=== PATIENT | male | born 1950 | race Caucasian/White ===

== ENCOUNTER 2017-02-05 09:00 | Inpatient (IN) | payer MEDICARE, OTHER ==
[~2017-02-05] VITALS: Ht 160 cm; Wt 62.6 kg
[2017-02-05] MEDS ORDERED: DEXTROSE 50%, 50ML VIAL ONE (09:06)
[2017-02-05] MEDS ORDERED: SODIUM CHLORIDE 0.9% 1,000 ML IV ONE (09:11)
[2017-02-05] MEDS ORDERED: PLEASE ENTER ALLERGIES MC SCH ×2 (09:30)
[2017-02-05] MEDS ORDERED: SODIUM CHLORIDE FLUSH 10ML SYR IVF ONE (09:30)
[2017-02-05] MEDS ORDERED: SODIUM CHLORIDE 0.9% 1,000ML IVBOLUS ONE ×2 (09:30→17:00)
[2017-02-05] MEDS ORDERED: DEXTROSE 50%, 50ML SYRINGE IVPush ONE (09:30)
[2017-02-05 10:13] LABS: ABG COLLECTION SITE LEFT BRACHIAL; HEMATOCRIT 45.9 % (39.2-51.8); HEMOGLOBIN 15.4 g/dL (13.7-18.0); WHITE BLOOD COUNT 9.4 x10^3/uL (3.4-10)
[2017-02-05 10:36] LABS: DIFF TOTAL CELLS COUNTED 100 CELL DIFF
[2017-02-05 10:40] LABS: VERIFY COUNTS? YES
[2017-02-05 10:45] LABS: ASPARTATE AMINO TRANSFERASE 43 U/L (15-37); BLOOD UREA NITROGEN 14 mg/dL (7-18)
[2017-02-05 10:50] VITALS: BP 83/44
[2017-02-05 10:51] LABS: IS PT STATUS REG ER OR PRE ER? YES
[2017-02-05] MEDS: DEXTROSE 10% 500 ML IV SCH ×3 (11:04→19:00)
[2017-02-05] MEDS ORDERED: SODIUM CHLORIDE 0.9% 1,000 ML IV SCH ×2 (11:18→12:18)
[2017-02-05] MEDS ORDERED: VANCOMYCIN PER PHARMACY MC ONE (11:30)
[2017-02-05] MEDS ORDERED: NOREPINEPHRINE 4 MG in SODIUM CHLORIDE 0.9% 246 ML IV PRN (11:30)
[2017-02-05] MEDS ORDERED: PIPERACILLIN/TAZO/PMX 3.375GM 50 ML IVPB ONE (11:30)
[2017-02-05] MEDS ORDERED: VANCOMYCIN 1,300 MG in SODIUM CHLORIDE 0.9% 250 ML IV ONE (11:30)
[2017-02-05] MEDS ORDERED: SODIUM CHLORIDE FLUSH 10ML SYR IVF PRN (12:00)
[2017-02-05] MEDS ORDERED: VANCOMYCIN PER PHARMACY MC PRN (14:00)
[2017-02-05] MEDS ORDERED: LORazepam 2 MG/ML, 1ML IV PRN ×5 (14:00)
[2017-02-05] MEDS: PIPERACILLIN/TAZO/PMX 3.375GM 50 ML IV SCH ×2 (14:00→22:00)
[2017-02-05 14:07] LABS: HEMATOCRIT 41.7 % (39.2-51.8); HEMOGLOBIN 13.8 g/dL (13.7-18.0)
[2017-02-05 14:13] LABS: ABG COLLECTION SITE LEFT RADIAL; COLLATERAL CIRCULATION TESTING NORMAL
[2017-02-05 14:19] LABS: BLOOD UREA NITROGEN 15 mg/dL (7-18)
[2017-02-05] MEDS ORDERED: PANTOPRAZOLE 80 MG in SODIUM CHLORIDE 0.9% 50 ML IV ONE (14:38)
[2017-02-05] MEDS ORDERED: PHARMACOKINETIC CONSULTATION MC ONE (15:00)
[2017-02-05] MEDS ORDERED: PHARMACOKINETIC MONITORING MC PRN (15:00)
[2017-02-05] MEDS ORDERED: POTASSIUM CHLORIDE 40 MEQ in SODIUM CHLORIDE 0.9% 100 ML IV ONE (15:30)
[2017-02-05] MEDS: OCTREOTIDE 500 MCG in SODIUM CHLORIDE 0.9% 249 ML IV SCH (16:31)
[2017-02-05] MEDS: VASOPRESSIN 100 UNIT in SODIUM CHLORIDE 0.9% 495 ML IV PRN (16:31)
[2017-02-05] MEDS: PANTOPRAZOLE 80 MG in SODIUM CHLORIDE 0.9% 100 ML IV SCH (16:42)
[2017-02-05] MEDS: NOREPINEPHRINE 8 MG in SODIUM CHLORIDE 0.9% 246 ML IV PRN ×2 (16:53→21:37)
[2017-02-05] MEDS ORDERED: ETOMIDATE 20 MG/10 ML IVPush ONE (17:00)
[2017-02-05] MEDS ORDERED: PROPOFOL 10 MG/ML, 100ML IV ONE (17:00)
[2017-02-05] MEDS ORDERED: ETOMIDATE 20 MG/10 ML ONE (17:00)
[2017-02-05] MEDS ORDERED: MIDAZOLAM 1 MG/ML, 5ML ONE (17:00)
[2017-02-05] MEDS ORDERED: MIDAZOLAM 1 MG/ML, 5ML IVPush ONE (17:00)
[2017-02-05] MEDS ORDERED: LIDOCAINE-MPF 1%, 2ML ENDO PRN (17:30)
[2017-02-05] MEDS ORDERED: PHARMACY MAY ADJ FOR RENAL FX MC SCH (17:30)
[2017-02-05] MEDS ORDERED: GLUCAGON 1 MG IM PRN (17:30)
[2017-02-05] MEDS: PHENYLEPHRINE 10 MG in SODIUM CHLORIDE 0.9% 249 ML IV PRN ×2 (17:30→21:37)
[2017-02-05] MEDS: PROPOFOL 100 ML IV PRN (17:30)
[2017-02-05 18:32] LABS: ABG COLLECTION SITE LEFT RADIAL; COLLATERAL CIRCULATION TESTING NORMAL
[2017-02-05 18:42] LABS: BLOOD UREA NITROGEN 18 mg/dL (7-18)
[2017-02-05 19:10] LABS: HEMATOCRIT 39.5 % (39.2-51.8); HEMOGLOBIN 13.3 g/dL (13.7-18.0); WHITE BLOOD COUNT 8.3 x10^3/uL (3.4-10)
[2017-02-05 19:11] LABS: DIFF TOTAL CELLS COUNTED 100 CELL DIFF
[2017-02-05 19:16] LABS: VERIFY COUNTS? YES
[2017-02-05] MEDS ORDERED: CALCIUM CHLORIDE 13.6 MEQ in SODIUM CHLORIDE 0.9% 100 ML IV ONE (19:30)
[2017-02-05] MEDS ORDERED: SODIUM BICARB 8.4%, 50ML SYRINGE IVPush ONE (19:30)
[2017-02-05] MEDS: THIAMINE 100 MG, MVI ADULT 10 ML, FOLIC ACID 1 MG in D5%-0.9% NACL 1,000 ML IV SCH (19:48)
[2017-02-05 20:03] LABS: DAU SCREEN DISCLAIMER
[2017-02-05] MEDS: ALBUTEROL/IPRATROPIUM 2.5MG/0.5MG, 3 ML NPPB SCH (20:42)
[2017-02-05 21:59] LABS: ABG COLLECTION SITE LEFT RADIAL; COLLATERAL CIRCULATION TESTING NORMAL
[2017-02-05] MEDS ORDERED: ACETAMINOPHEN 650 MG/20.3 ML UDC ONE (22:22)
[2017-02-05] MEDS: ACETAMINOPHEN 325 MG TABLET PO PRN (22:23)
[2017-02-05] MEDS ORDERED: PHENYLEPHRINE 10 MG/ML ONE (22:29)
[2017-02-05] MEDS ORDERED: PHENYLEPHRINE 20 MG in SODIUM CHLORIDE 0.9% 248 ML IV PRN (23:15)
[2017-02-06] MEDS ORDERED: DEXTROSE 50%, 50ML VIAL ONE ×6 (00:24→13:29)
[2017-02-06] MEDS: DEXTROSE 50%, 50ML SYRINGE IVPush PRN ×4 (00:30→09:10)
[2017-02-06] MEDS: NICOTINE 21 MG/24 HR PATCH.TD24 TD SCH ×2 (00:34→14:00)
[2017-02-06] MEDS: ALBUTEROL/IPRATROPIUM 2.5MG/0.5MG, 3 ML NPPB SCH ×6 (01:00→22:24)
[2017-02-06] MEDS: PROPOFOL 100 ML IV PRN ×4 (01:18→17:16)
[2017-02-06] MEDS: OCTREOTIDE 500 MCG in SODIUM CHLORIDE 0.9% 249 ML IV SCH ×3 (01:25→22:52)
[2017-02-06] MEDS: PANTOPRAZOLE 80 MG in SODIUM CHLORIDE 0.9% 100 ML IV SCH ×3 (01:26→22:52)
[2017-02-06] MEDS: NOREPINEPHRINE 8 MG in SODIUM CHLORIDE 0.9% 246 ML IV PRN ×3 (02:21→10:41)
[2017-02-06] MEDS ORDERED: DEXTROSE 10% 1,000 ML IV SCH (03:00)
[2017-02-06 04:07] LABS: ASPARTATE AMINO TRANSFERASE 65 U/L (15-37); BLOOD UREA NITROGEN 22 mg/dL (7-18)
[2017-02-06 04:15] VITALS: BP 109/66
[2017-02-06 04:16] LABS: ABG COLLECTION SITE LEFT RADIAL; COLLATERAL CIRCULATION TESTING NORMAL
[2017-02-06 04:23] LABS: HEMATOCRIT 42.8 % (39.2-51.8); WHITE BLOOD COUNT 17.1 x10^3/uL (3.4-10)
[2017-02-06 04:27] LABS: DIFF TOTAL CELLS COUNTED 100 CELL DIFF
[2017-02-06 04:32] LABS: VERIFY COUNTS? YES
[2017-02-06] MEDS: PIPERACILLIN/TAZO/PMX 3.375GM 50 ML IV SCH ×4 (04:35→22:18)
[2017-02-06] MEDS: THIAMINE 100 MG, MVI ADULT 10 ML, FOLIC ACID 1 MG in D5%-0.9% NACL 1,000 ML IV SCH (06:03)
[2017-02-06] MEDS ORDERED: MAGNESIUM SULFATE PMX 4GM/100M 100 ML IV ONE (06:30)
[2017-02-06] MEDS ORDERED: DEXTROSE 50%, 50ML SYRINGE IVPush STA (09:23)
[2017-02-06 11:02] LABS: IS PT STATUS REG ER OR PRE ER? NO
[2017-02-06] MEDS: VANCOMYCIN 1,400 MG in SODIUM CHLORIDE 0.9% 250 ML IV SCH (11:23)
[2017-02-06] MEDS ORDERED: DEXTROSE 50%, 50ML VIAL IVPush STA (13:15)
[2017-02-06] MEDS: DEXTROSE 5% 1,000 ML IV SCH (14:30)
[2017-02-06 15:56] LABS: BLOOD UREA NITROGEN 21 mg/dL (7-18)
[2017-02-06 16:39] LABS: HEMATOCRIT 39.2 % (39.2-51.8); HEMOGLOBIN 13.1 g/dL (13.7-18.0); WHITE BLOOD COUNT 16.6 x10^3/uL (3.4-10)
[2017-02-06 16:44] LABS: DIFF TOTAL CELLS COUNTED 100 CELL DIFF
[2017-02-06 16:55] LABS: VERIFY COUNTS? YES
[2017-02-06 17:26] LABS: IS PT STATUS REG ER OR PRE ER? NO
[2017-02-06 23:11] LABS: IS PT STATUS REG ER OR PRE ER? NO
[2017-02-07] VITALS (8 sets, daily range): BP systolic 98–114; BP diastolic 53–61
[2017-02-07] MEDS: DEXTROSE 5% 1,000 ML IV SCH (00:17)
[2017-02-07] MEDS: PROPOFOL 100 ML IV PRN ×4 (00:27→17:37)
[2017-02-07] MEDS: ACETAMINOPHEN 325 MG TABLET PO PRN (00:27)
[2017-02-07] MEDS: ALBUTEROL/IPRATROPIUM 2.5MG/0.5MG, 3 ML NPPB SCH ×6 (01:00→21:00)
[2017-02-07] MEDS: PIPERACILLIN/TAZO/PMX 3.375GM 50 ML IV SCH ×4 (04:06→21:51)
[2017-02-07 04:23] LABS: HEMOGLOBIN 12.5 g/dL (13.7-18.0); WHITE BLOOD COUNT 14.3 x10^3/uL (3.4-10)
[2017-02-07 04:39] LABS: ABG COLLECTION SITE LEFT RADIAL; COLLATERAL CIRCULATION TESTING NORMAL
[2017-02-07 05:09] LABS: HIV 1&2 ANTIBODY SCREEN Nonreactive (Nonreactive); HIV-1 p24 ANTIGEN Nonreactive (Nonreactive)
[2017-02-07 05:17] LABS: BLOOD UREA NITROGEN 22 mg/dL (7-18)
[2017-02-07 05:26] LABS: DIFF TOTAL CELLS COUNTED 100 CELL DIFF
[2017-02-07 05:28] LABS: HEP B SURF. AB < 3.1 mIU/mL (0.0-10.0)
[2017-02-07 05:30] LABS: VERIFY COUNTS? YES
[2017-02-07 05:34] LABS: IS PT STATUS REG ER OR PRE ER? NO
[2017-02-07 05:38] LABS: LARGE PLATELETS 1+
[2017-02-07 05:39] LABS: ASPARTATE AMINO TRANSFERASE 256 U/L (15-37)
[2017-02-07] MEDS: OCTREOTIDE 500 MCG in SODIUM CHLORIDE 0.9% 249 ML IV SCH ×2 (08:09→15:02)
[2017-02-07] MEDS: VASOPRESSIN 100 UNIT in SODIUM CHLORIDE 0.9% 495 ML IV PRN (08:10)
[2017-02-07] MEDS: PANTOPRAZOLE 80 MG in SODIUM CHLORIDE 0.9% 100 ML IV SCH ×2 (08:10→19:27)
[2017-02-07] MEDS: SODIUM CHLORIDE 0.9% 1,000 ML IV SCH (08:35)
[2017-02-07] MEDS: NOREPINEPHRINE 8 MG in SODIUM CHLORIDE 0.9% 246 ML IV PRN ×3 (09:46→22:10)
[2017-02-07] MEDS: VANCOMYCIN 1,400 MG in SODIUM CHLORIDE 0.9% 250 ML IV SCH (12:16)
[2017-02-07] MEDS: NICOTINE 21 MG/24 HR PATCH.TD24 TD SCH (14:00)
[2017-02-07] MEDS: CLINDAMYCIN PMX 900MG/50ML 50 ML IV SCH ×2 (15:02→23:01)
[2017-02-07 15:32] LABS: BLOOD UREA NITROGEN 23 mg/dL (7-18)
[2017-02-07 15:54] LABS: IS PT STATUS REG ER OR PRE ER? NO
[2017-02-07 16:03] LABS: HEMATOCRIT 34.3 % (39.2-51.8); HEMOGLOBIN 11.9 g/dL (13.7-18.0); WHITE BLOOD COUNT 16.4 x10^3/uL (3.4-10)
[2017-02-07 16:15] LABS: DIFF TOTAL CELLS COUNTED 200 CELL DIFF; VERIFY COUNTS? YES
[2017-02-07] MEDS: THIAMINE 100 MG, MVI ADULT 10 ML, FOLIC ACID 1 MG in D5%-0.9% NACL 1,000 ML IV SCH (16:31)
[2017-02-07] MEDS ORDERED: HEPARIN wt. based STROKE protocol MC PRN (21:00)
[2017-02-07] MEDS ORDERED: DO NOT GIVE XX PRN (21:00)
[2017-02-07 21:24] LABS: HEMATOCRIT 34.3 % (39.2-51.8); HEMOGLOBIN 11.8 g/dL (13.7-18.0)
[2017-02-07] MEDS: HEPARIN 25,000 UNITS/500ML PMX 500 ML IV PRN (21:53)
[2017-02-07 21:58] LABS: IS PT STATUS REG ER OR PRE ER? NO
[2017-02-08 00:13] VITALS: BP 103/59
[2017-02-08 00:31] VITALS: BP 103/63
[2017-02-08] MEDS: ALBUTEROL/IPRATROPIUM 2.5MG/0.5MG, 3 ML NPPB SCH ×6 (01:00→21:57)
[2017-02-08 01:24] VITALS: BP 105/61
[2017-02-08] MEDS: OCTREOTIDE 500 MCG in SODIUM CHLORIDE 0.9% 249 ML IV SCH (03:58)
[2017-02-08 04:00] VITALS: BP 111/67
[2017-02-08] MEDS: PIPERACILLIN/TAZO/PMX 3.375GM 50 ML IV SCH ×2 (04:01→11:16)
[2017-02-08 04:33] LABS: HEMOGLOBIN 10.9 g/dL (13.7-18.0)
[2017-02-08 04:45] LABS: IS PT STATUS REG ER OR PRE ER? NO
[2017-02-08 05:04] LABS: DIFF TOTAL CELLS COUNTED 100 CELL DIFF
[2017-02-08 05:07] LABS: ANISOCYTOSIS 1+; VERIFY COUNTS? YES
[2017-02-08 05:08] LABS: LARGE PLATELETS 1+
[2017-02-08 05:22] LABS: ABG COLLECTION SITE LEFT RADIAL; COLLATERAL CIRCULATION TESTING NORMAL
[2017-02-08 05:25] LABS: BLOOD UREA NITROGEN 17 mg/dL (7-18)
[2017-02-08] MEDS ORDERED: POTASSIUM CHLORIDE 40 MEQ in SODIUM CHLORIDE 0.9% 100 ML IV ONE ×2 (06:00→14:00)
[2017-02-08] MEDS: CLINDAMYCIN PMX 900MG/50ML 50 ML IV SCH ×3 (06:03→22:34)
[2017-02-08] MEDS: PROPOFOL 100 ML IV PRN ×2 (06:03→20:46)
[2017-02-08] MEDS: PANTOPRAZOLE 80 MG in SODIUM CHLORIDE 0.9% 100 ML IV SCH (06:03)
[2017-02-08] MEDS: SODIUM CHLORIDE 0.9% 1,000 ML IV SCH ×3 (07:51→22:00)
[2017-02-08] MEDS: NOREPINEPHRINE 8 MG in SODIUM CHLORIDE 0.9% 246 ML IV PRN (11:16)
[2017-02-08] MEDS: VANCOMYCIN 1,400 MG in SODIUM CHLORIDE 0.9% 250 ML IV SCH (11:58)
[2017-02-08] MEDS ORDERED: NOREPINEPHRINE 8 MG in SODIUM CHLORIDE 0.9% 242 ML IV PRN (14:18)
[2017-02-08] MEDS: PIPERACILLIN/TAZO/PMX 4.5GM 100 ML IV SCH ×2 (16:37→21:37)
[2017-02-08] MEDS: PANTOPRAZOLE 40 MG IV IVPush SCH (16:37)
[2017-02-08] MEDS: THIAMINE 100 MG, MVI ADULT 10 ML, FOLIC ACID 1 MG in D5%-0.9% NACL 1,000 ML IV SCH (16:37)
[2017-02-09] MEDS: HEPARIN 25,000 UNITS/500ML PMX 500 ML IV PRN (00:55)
[2017-02-09] MEDS: ALBUTEROL/IPRATROPIUM 2.5MG/0.5MG, 3 ML NPPB SCH ×6 (01:00→18:42)
[2017-02-09] MEDS: PANTOPRAZOLE 40 MG IV IVPush SCH ×2 (03:36→14:57)
[2017-02-09] MEDS: PIPERACILLIN/TAZO/PMX 4.5GM 100 ML IV SCH ×4 (03:36→21:39)
[2017-02-09 04:03] LABS: ASPARTATE AMINO TRANSFERASE 165 U/L (15-37); BLOOD UREA NITROGEN 16 mg/dL (7-18)
[2017-02-09 04:22] VITALS: BP 92/58
[2017-02-09 04:33] LABS: ABG COLLECTION SITE LEFT BRACHIAL
[2017-02-09 04:39] LABS: HEMATOCRIT 30.1 % (39.2-51.8); HEMOGLOBIN 10.3 g/dL (13.7-18.0); WHITE BLOOD COUNT 13.3 x10^3/uL (3.4-10)
[2017-02-09 04:40] LABS: DIFF TOTAL CELLS COUNTED 100 CELL DIFF
[2017-02-09 04:49] LABS: VERIFY COUNTS? YES
[2017-02-09 04:50] LABS: ANISOCYTOSIS 1+
[2017-02-09 04:51] LABS: LARGE PLATELETS 1+
[2017-02-09] MEDS ORDERED: POTASSIUM CHLORIDE 40 MEQ in SODIUM CHLORIDE 0.9% 100 ML IV ONE (05:00)
[2017-02-09] MEDS: PROPOFOL 100 ML IV PRN ×4 (05:19→22:48)
[2017-02-09] MEDS: SODIUM CHLORIDE 0.9% 1,000 ML IV SCH (05:45)
[2017-02-09] MEDS: CLINDAMYCIN PMX 900MG/50ML 50 ML IV SCH ×3 (05:58→22:48)
[2017-02-09] MEDS: FENTANYL PF 100 MCG/2ML IVPush PRN ×3 (07:30→17:26)
[2017-02-09] MEDS ORDERED: POTASSIUM CHLORIDE 40 MEQ in SODIUM CHLORIDE 0.9% 100 ML IV SCH (12:00)
[2017-02-09] MEDS: KSCALE TO 4.5 IV SCH ×2 (14:30→20:30)
[2017-02-09 14:58] LABS: BLOOD UREA NITROGEN 14 mg/dL (7-18)
[2017-02-09] MEDS ORDERED: POTASSIUM CHLORIDE PMX 100 ML IV ONE (16:00)
[2017-02-09] MEDS: THIAMINE 100 MG, MVI ADULT 10 ML, FOLIC ACID 1 MG in D5%-0.9% NACL 1,000 ML IV SCH (16:11)
[2017-02-09 16:18] LABS: HEMATOCRIT 29.6 % (39.2-51.8); HEMOGLOBIN 10.3 g/dL (13.7-18.0); WHITE BLOOD COUNT 11.9 x10^3/uL (3.4-10)
[2017-02-09 16:32] LABS: DIFF TOTAL CELLS COUNTED 100 CELL DIFF
[2017-02-09 16:34] LABS: ANISOCYTOSIS 1+; VERIFY COUNTS? YES
[2017-02-09 16:35] LABS: LARGE PLATELETS 1+
[2017-02-09] MEDS ORDERED: FENTANYL PF 2,500 MCG in SODIUM CHLORIDE 0.9% 200 ML IV PRN (17:30)
[2017-02-09] MEDS: FENTANYL PF 2,500 MCG in SODIUM CHLORIDE 0.9% 200 ML IV PRN (18:31)
[2017-02-09 21:36] LABS: HEMATOCRIT 29.3 % (39.2-51.8); HEMOGLOBIN 10.1 g/dL (13.7-18.0); WHITE BLOOD COUNT 10.5 x10^3/uL (3.4-10)
[2017-02-09 21:46] LABS: ASPARTATE AMINO TRANSFERASE 166 U/L (15-37); BLOOD UREA NITROGEN 13 mg/dL (7-18)
[2017-02-09] MEDS ORDERED: POTASSIUM CHLORIDE 30 MEQ in SODIUM CHLORIDE 0.9% 100 ML IV ONE (23:00)
[2017-02-10] MEDS: ALBUTEROL/IPRATROPIUM 2.5MG/0.5MG, 3 ML NPPB SCH ×5 (01:00→21:00)
[2017-02-10] MEDS: KSCALE TO 4.5 IV SCH ×4 (02:30→23:00)
[2017-02-10] MEDS: PANTOPRAZOLE 40 MG IV IVPush SCH ×2 (03:55→15:09)
[2017-02-10] MEDS: PIPERACILLIN/TAZO/PMX 4.5GM 100 ML IV SCH ×4 (03:55→21:49)
[2017-02-10 04:06] LABS: HEMATOCRIT 29.1 % (39.2-51.8); HEMOGLOBIN 9.8 g/dL (13.7-18.0); WHITE BLOOD COUNT 9.6 x10^3/uL (3.4-10)
[2017-02-10 04:29] LABS: ABG COLLECTION SITE LEFT BRACHIAL
[2017-02-10 04:34] LABS: ASPARTATE AMINO TRANSFERASE 160 U/L (15-37); BLOOD UREA NITROGEN 12 mg/dL (7-18)
[2017-02-10] MEDS: CLINDAMYCIN PMX 900MG/50ML 50 ML IV SCH ×3 (05:50→22:42)
[2017-02-10] MEDS ORDERED: POTASSIUM CHLORIDE PMX 100 ML IV ONE ×2 (06:00→19:00)
[2017-02-10 08:53] LABS: ABG COLLECTION SITE RIGHT RADIAL; COLLATERAL CIRCULATION TESTING NORMAL
[2017-02-10 09:22] LABS: FIO2 30 %
[2017-02-10] MEDS: PROPOFOL 100 ML IV PRN ×2 (10:29→21:46)
[2017-02-10] MEDS: SODIUM CHLORIDE 0.9% 1,000 ML IV SCH ×3 (10:30→21:47)
[2017-02-10] MEDS ORDERED: DEXTROSE 50%, 50ML SYRINGE IVPush PRN (13:30)
[2017-02-10] MEDS ORDERED: GLUCAGON 1 MG IM PRN (13:30)
[2017-02-10] MEDS: THIAMINE 100 MG, MVI ADULT 10 ML, FOLIC ACID 1 MG in D5%-0.9% NACL 1,000 ML IV SCH (15:43)
[2017-02-11] MEDS ORDERED: POTASSIUM CHLORIDE 30 MEQ in SODIUM CHLORIDE 0.9% 100 ML IV ONE (02:00)
[2017-02-11] MEDS: PANTOPRAZOLE 40 MG IV IVPush SCH ×2 (03:16→14:39)
[2017-02-11] MEDS: PIPERACILLIN/TAZO/PMX 4.5GM 100 ML IV SCH ×4 (03:16→21:44)
[2017-02-11] MEDS: PROPOFOL 100 ML IV PRN ×3 (03:18→22:06)
[2017-02-11] MEDS: FENTANYL PF 2,500 MCG in SODIUM CHLORIDE 0.9% 200 ML IV PRN ×2 (03:45→04:48)
[2017-02-11 04:30] LABS: ABG COLLECTION SITE LEFT BRACHIAL
[2017-02-11] MEDS: SODIUM CHLORIDE 0.9% 1,000 ML IV SCH ×3 (04:47→15:35)
[2017-02-11] MEDS: KSCALE TO 4.5 IV SCH (05:00)
[2017-02-11 05:11] LABS: ASPARTATE AMINO TRANSFERASE 128 U/L (15-37); BLOOD UREA NITROGEN 10 mg/dL (7-18)
[2017-02-11 05:18] LABS: HEMATOCRIT 27.8 % (39.2-51.8); HEMOGLOBIN 9.5 g/dL (13.7-18.0); WHITE BLOOD COUNT 8.5 x10^3/uL (3.4-10)
[2017-02-11] MEDS: CLINDAMYCIN PMX 900MG/50ML 50 ML IV SCH ×3 (06:12→22:40)
[2017-02-11] MEDS ORDERED: POTASSIUM CHLORIDE PMX 100 ML IV ONE (06:30)
[2017-02-11] MEDS ORDERED: MAGNESIUM SULFATE PMX 4GM/100M 100 ML IV ONE (07:00)
[2017-02-11] MEDS: ALBUTEROL/IPRATROPIUM 2.5MG/0.5MG, 3 ML NPPB SCH ×5 (07:10→20:56)
[2017-02-11] MEDS: ALBUMIN HUMAN 25% 100 ML IV SCH ×2 (09:06→15:35)
[2017-02-12] MEDS: ALBUMIN HUMAN 25% 100 ML IV SCH ×4 (00:16→23:53)
[2017-02-12] MEDS: SODIUM CHLORIDE 0.9% 1,000 ML IV SCH ×3 (00:16→23:53)
[2017-02-12] MEDS: ALBUTEROL/IPRATROPIUM 2.5MG/0.5MG, 3 ML NPPB SCH ×6 (00:55→20:51)
[2017-02-12] MEDS: PANTOPRAZOLE 40 MG IV IVPush SCH (03:28)
[2017-02-12] MEDS: PIPERACILLIN/TAZO/PMX 4.5GM 100 ML IV SCH ×2 (03:28→10:12)
[2017-02-12] MEDS: PROPOFOL 100 ML IV PRN ×3 (04:21→21:29)
[2017-02-12 04:34] LABS: ABG COLLECTION SITE LEFT BRACHIAL
[2017-02-12 04:42] LABS: BLOOD UREA NITROGEN 12 mg/dL (7-18)
[2017-02-12 04:44] LABS: HEMATOCRIT 25.6 % (39.2-51.8); HEMOGLOBIN 8.7 g/dL (13.7-18.0); WHITE BLOOD COUNT 7.1 x10^3/uL (3.4-10)
[2017-02-12 04:59] VITALS: BP 111/61
[2017-02-12] MEDS: CLINDAMYCIN PMX 900MG/50ML 50 ML IV SCH (06:01)
[2017-02-12] MEDS: FENTANYL PF 2,500 MCG in SODIUM CHLORIDE 0.9% 200 ML IV PRN (06:01)
[2017-02-12] MEDS ORDERED: FUROSEMIDE 20 MG/2 ML IV SCH (09:00)
[2017-02-12] MEDS: AMPICILLIN/SULBACTAM 3 GM in SODIUM CHLORIDE 0.9% 100 ML IV SCH ×3 (12:19→23:03)
[2017-02-12] MEDS ORDERED: METOCLOPRAMIDE 5 MG/ML, 2ML IVPush PRN (13:30)
[2017-02-12] MEDS: METOCLOPRAMIDE 5 MG/ML, 2ML IVPush SCH ×2 (14:04→19:35)
[2017-02-12] MEDS: FUROSEMIDE 20 MG/2 ML IV SCH (16:43)
[2017-02-13] MEDS: ALBUTEROL/IPRATROPIUM 2.5MG/0.5MG, 3 ML NPPB SCH ×7 (01:00→22:20)
[2017-02-13] MEDS: METOCLOPRAMIDE 5 MG/ML, 2ML IVPush SCH ×4 (03:07→20:11)
[2017-02-13 04:30] LABS: ABG COLLECTION SITE LEFT BRACHIAL
[2017-02-13 04:34] LABS: HEMATOCRIT 23.8 % (39.2-51.8); HEMOGLOBIN 8.1 g/dL (13.7-18.0); WHITE BLOOD COUNT 6.5 x10^3/uL (3.4-10)
[2017-02-13 04:41] VITALS: BP 109/54
[2017-02-13 04:45] LABS: BLOOD UREA NITROGEN 12 mg/dL (7-18)
[2017-02-13] MEDS: AMPICILLIN/SULBACTAM 3 GM in SODIUM CHLORIDE 0.9% 100 ML IV SCH ×4 (05:09→23:35)
[2017-02-13] MEDS: POTASSIUM CHLORIDE 10% 40 MEQ/30 ML UDC PO SCH ×2 (07:50→20:33)
[2017-02-13] MEDS: ALBUMIN HUMAN 25% 100 ML IV SCH ×2 (07:50→15:47)
[2017-02-13] MEDS: FUROSEMIDE 20 MG/2 ML IV SCH ×2 (09:00→17:06)
[2017-02-13] MEDS: PANTOPRAZOLE 40 MG IV IVPush SCH (09:00)
[2017-02-13] MEDS: PROPOFOL 100 ML IV PRN ×4 (11:08→23:35)
[2017-02-13] MEDS: FENTANYL PF 2,500 MCG in SODIUM CHLORIDE 0.9% 200 ML IV PRN (20:11)
[2017-02-14] MEDS: ALBUMIN HUMAN 25% 100 ML IV SCH ×4 (00:10→23:51)
[2017-02-14] MEDS: METOCLOPRAMIDE 5 MG/ML, 2ML IVPush SCH ×3 (02:21→22:06)
[2017-02-14] MEDS: ALBUTEROL/IPRATROPIUM 2.5MG/0.5MG, 3 ML NPPB SCH ×6 (02:30→22:00)
[2017-02-14] MEDS: PROPOFOL 100 ML IV PRN (02:52)
[2017-02-14 04:10] VITALS: BP 131/63
[2017-02-14 04:21] LABS: HEMATOCRIT 23.4 % (39.2-51.8); HEMOGLOBIN 7.9 g/dL (13.7-18.0); WHITE BLOOD COUNT 6.8 x10^3/uL (3.4-10)
[2017-02-14 04:24] LABS: ABG COLLECTION SITE LEFT BRACHIAL; COLLATERAL CIRCULATION TESTING NORMAL
[2017-02-14 04:38] LABS: BLOOD UREA NITROGEN 13 mg/dL (7-18)
[2017-02-14] MEDS: AMPICILLIN/SULBACTAM 3 GM in SODIUM CHLORIDE 0.9% 100 ML IV SCH ×4 (05:01→23:49)
[2017-02-14] MEDS: PANTOPRAZOLE 40 MG IV IVPush SCH (08:47)
[2017-02-14] MEDS: POTASSIUM CHLORIDE 10% 40 MEQ/30 ML UDC PO SCH ×2 (08:47→21:00)
[2017-02-14] MEDS: FUROSEMIDE 20 MG/2 ML IV SCH ×2 (09:34→17:22)
[2017-02-14] MEDS: ENOXAPARIN 40 MG/0.4 ML SQ SCH (09:34)
[2017-02-14] MEDS: METHYLNALTREXONE 12 MG/0.6 ML SQ SCH (09:34)
[2017-02-15] MEDS: ACETAMINOPHEN 325 MG TABLET PO PRN (00:16)
[2017-02-15] MEDS: ALBUTEROL/IPRATROPIUM 2.5MG/0.5MG, 3 ML NPPB SCH ×6 (03:20→22:15)
[2017-02-15 04:00] VITALS: BP 146/68
[2017-02-15 04:18] LABS: ABG COLLECTION SITE LEFT BRACHIAL
[2017-02-15] MEDS: AMPICILLIN/SULBACTAM 3 GM in SODIUM CHLORIDE 0.9% 100 ML IV SCH ×4 (06:00→23:50)
[2017-02-15 06:05] LABS: HEMATOCRIT 24.9 % (39.2-51.8); HEMOGLOBIN 8.4 g/dL (13.7-18.0); WHITE BLOOD COUNT 8.4 x10^3/uL (3.4-10)
[2017-02-15] MEDS: METOCLOPRAMIDE 5 MG/ML, 2ML IVPush SCH ×3 (06:06→21:28)
[2017-02-15 07:15] LABS: BLOOD UREA NITROGEN 22 mg/dL (7-18)
[2017-02-15] MEDS: PANTOPRAZOLE 40 MG IV IVPush SCH (08:55)
[2017-02-15] MEDS: ALBUMIN HUMAN 25% 100 ML IV SCH ×3 (08:55→23:51)
[2017-02-15] MEDS: POTASSIUM CHLORIDE 10% 40 MEQ/30 ML UDC PO SCH ×2 (08:55→21:28)
[2017-02-15] MEDS: ENOXAPARIN 40 MG/0.4 ML SQ SCH (09:26)
[2017-02-15] MEDS: FUROSEMIDE 20 MG/2 ML IV SCH ×2 (09:26→17:00)
[2017-02-15] MEDS: FENTANYL PF 2,500 MCG in SODIUM CHLORIDE 0.9% 200 ML IV PRN (12:31)
[2017-02-15] MEDS ORDERED: SODIUM CHLORIDE 0.45% 1,000 ML IV SCH (23:30)
[2017-02-16] MEDS: ALBUTEROL/IPRATROPIUM 2.5MG/0.5MG, 3 ML NPPB SCH ×6 (02:25→22:00)
[2017-02-16 04:32] LABS: ABG COLLECTION SITE LEFT RADIAL; COLLATERAL CIRCULATION TESTING NORMAL
[2017-02-16 04:38] LABS: HEMATOCRIT 23.8 % (39.2-51.8); HEMOGLOBIN 7.8 g/dL (13.7-18.0); WHITE BLOOD COUNT 5.9 x10^3/uL (3.4-10)
[2017-02-16 05:00] VITALS: BP 155/76
[2017-02-16] MEDS: AMPICILLIN/SULBACTAM 3 GM in SODIUM CHLORIDE 0.9% 100 ML IV SCH ×4 (05:20→23:29)
[2017-02-16] MEDS: METOCLOPRAMIDE 5 MG/ML, 2ML IVPush SCH ×3 (05:20→21:39)
[2017-02-16 05:53] LABS: BLOOD UREA NITROGEN 33 mg/dL (7-18)
[2017-02-16] MEDS: FUROSEMIDE 20 MG/2 ML IV SCH ×2 (08:47→16:38)
[2017-02-16] MEDS: METHYLNALTREXONE 12 MG/0.6 ML SQ SCH (08:48)
[2017-02-16] MEDS: PANTOPRAZOLE 40 MG IV IVPush SCH (09:24)
[2017-02-16] MEDS: ALBUMIN HUMAN 25% 100 ML IV SCH ×2 (09:24→16:38)
[2017-02-16] MEDS: ENOXAPARIN 40 MG/0.4 ML SQ SCH (09:24)
[2017-02-16] MEDS: POTASSIUM CHLORIDE 10% 40 MEQ/30 ML UDC PO SCH ×2 (09:24→21:38)
[2017-02-16] MEDS ORDERED: FUROSEMIDE 40 MG/4 ML IV ONE (16:30)
[2017-02-16] MEDS: FENTANYL PF 2,500 MCG in SODIUM CHLORIDE 0.9% 200 ML IV PRN (18:04)
[2017-02-16] MEDS ORDERED: SODIUM CHLORIDE 0.9% 1,000ML IVBOLUS ONE (22:30)
[2017-02-17] MEDS: ALBUMIN HUMAN 25% 100 ML IV SCH ×3 (00:20→16:43)
[2017-02-17] MEDS: ALBUTEROL/IPRATROPIUM 2.5MG/0.5MG, 3 ML NPPB SCH ×6 (02:00→21:52)
[2017-02-17 04:00] VITALS: BP 161/89
[2017-02-17 04:30] LABS: ABG COLLECTION SITE RIGHT RADIAL; COLLATERAL CIRCULATION TESTING NORMAL
[2017-02-17 05:03] LABS: HEMATOCRIT 23.3 % (39.2-51.8); HEMOGLOBIN 7.8 g/dL (13.7-18.0); WHITE BLOOD COUNT 3.7 x10^3/uL (3.4-10)
[2017-02-17] MEDS: AMPICILLIN/SULBACTAM 3 GM in SODIUM CHLORIDE 0.9% 100 ML IV SCH ×4 (05:50→23:30)
[2017-02-17] MEDS: METOCLOPRAMIDE 5 MG/ML, 2ML IVPush SCH ×3 (05:57→21:44)
[2017-02-17] MEDS: FUROSEMIDE 20 MG/2 ML IV SCH ×2 (07:30→17:00)
[2017-02-17] MEDS: POTASSIUM CHLORIDE 10% 40 MEQ/30 ML UDC PO SCH ×2 (09:00→21:44)
[2017-02-17] MEDS ORDERED: SODIUM CHLORIDE 0.9% 1,000ML IVBOLUS ONE (09:00)
[2017-02-17] MEDS: PANTOPRAZOLE 40 MG IV IVPush SCH (09:00)
[2017-02-17 09:44] LABS: BLOOD UREA NITROGEN 51 mg/dL (7-18)
[2017-02-17 11:42] LABS: POTASSIUM,URINE RANDOM 56 mmol/L
[2017-02-17] MEDS: ENOXAPARIN 40 MG/0.4 ML SQ SCH (11:52)
[2017-02-17] MEDS: FENTANYL PF 2,500 MCG in SODIUM CHLORIDE 0.9% 200 ML IV PRN (16:44)
[2017-02-17] MEDS ORDERED: FUROSEMIDE 100 MG/10 ML IV ONE (17:00)
[2017-02-18] MEDS: ALBUMIN HUMAN 25% 100 ML IV SCH ×4 (00:22→23:28)
[2017-02-18] MEDS: ALBUTEROL/IPRATROPIUM 2.5MG/0.5MG, 3 ML NPPB SCH ×6 (02:00→22:10)
[2017-02-18 04:00] VITALS: BP 141/73
[2017-02-18 04:48] LABS: ABG COLLECTION SITE RIGHT BRACHIAL
[2017-02-18 04:55] LABS: HEMOGLOBIN 7.3 g/dL (13.7-18.0); WHITE BLOOD COUNT 3.4 x10^3/uL (3.4-10)
[2017-02-18 04:58] LABS: BLOOD UREA NITROGEN 62 mg/dL (7-18)
[2017-02-18 05:02] LABS: HEMATOCRIT 22.2 % (39.2-51.8)
[2017-02-18 05:38] LABS: DIFF TOTAL CELLS COUNTED 100 CELL DIFF
[2017-02-18 05:42] LABS: ANISOCYTOSIS 1+; POLYCHROMASIA 1+; VERIFY COUNTS? YES
[2017-02-18 05:43] LABS: LARGE PLATELETS 1+
[2017-02-18] MEDS: AMPICILLIN/SULBACTAM 3 GM in SODIUM CHLORIDE 0.9% 100 ML IV SCH ×3 (05:48→22:51)
[2017-02-18] MEDS: METOCLOPRAMIDE 5 MG/ML, 2ML IVPush SCH ×3 (05:49→21:40)
[2017-02-18] MEDS: ACETAMINOPHEN 325 MG TABLET PO PRN ×2 (05:49→19:25)
[2017-02-18] MEDS: FUROSEMIDE 20 MG/2 ML IV SCH (07:30)
[2017-02-18] MEDS: METHYLNALTREXONE 12 MG/0.6 ML SQ SCH (08:30)
[2017-02-18] MEDS: POTASSIUM CHLORIDE 10% 40 MEQ/30 ML UDC PO SCH (08:33)
[2017-02-18] MEDS: PANTOPRAZOLE 40 MG IV IVPush SCH (10:03)
[2017-02-18] MEDS ORDERED: LIDOCAINE 1%, 20ML ONE (11:28)
[2017-02-18] MEDS: FENTANYL PF 2,500 MCG in SODIUM CHLORIDE 0.9% 200 ML IV PRN (13:11)
[2017-02-18] MEDS: QUETIAPINE 25MG TABLET PO SCH (16:15)
[2017-02-18] MEDS ORDERED: SODIUM CHLORIDE 0.9%, 500ML IVBOLUS ONE (21:00)
[2017-02-18] MEDS ORDERED: QUETIAPINE 25MG TABLET PO SCH (21:00)
[2017-02-19] MEDS: ALBUTEROL/IPRATROPIUM 2.5MG/0.5MG, 3 ML NPPB SCH ×4 (02:34→22:00)
[2017-02-19 04:00] VITALS: BP 132/89
[2017-02-19 04:54] LABS: BLOOD UREA NITROGEN 54 mg/dL (7-18)
[2017-02-19 05:21] LABS: ABG COLLECTION SITE LEFT BRACHIAL
[2017-02-19] MEDS: METOCLOPRAMIDE 5 MG/ML, 2ML IVPush SCH ×3 (05:57→21:37)
[2017-02-19 09:22] LABS: PTH INTACT INTERPRETATION ** Comment **
[2017-02-19 09:34] LABS: HEMOGLOBIN 7.4 g/dL (13.7-18.0)
[2017-02-19 09:38] LABS: HEMATOCRIT 22.2 % (39.2-51.8)
[2017-02-19 09:51] LABS: FERRITIN 204.1 ng/mL (26-388)
[2017-02-19 10:01] LABS: PARATHYROID HORMONE INTACT 117.9 pg/mL (14-72)
[2017-02-19 10:18] LABS: DIFF TOTAL CELLS COUNTED 100 CELL DIFF
[2017-02-19 10:24] LABS: ANISOCYTOSIS 1+; POLYCHROMASIA 1+; VERIFY COUNTS? YES
[2017-02-19 10:25] LABS: LARGE PLATELETS 1+
[2017-02-19] MEDS: QUETIAPINE 25MG TABLET PO SCH ×2 (11:25→20:33)
[2017-02-19] MEDS: PANTOPRAZOLE 40 MG IV IVPush SCH (11:28)
[2017-02-19 11:54] VITALS: BP 93/76
[2017-02-19 12:00] VITALS: BP 98/64
[2017-02-19 12:30] VITALS: BP 124/66
[2017-02-19] MEDS: FENTANYL PF 100 MCG/2ML IVPush PRN (13:02)
[2017-02-19] MEDS: FUROSEMIDE 40 MG/4 ML IV SCH ×2 (13:03→20:34)
[2017-02-19] MEDS: AMPICILLIN/SULBACTAM 3 GM in SODIUM CHLORIDE 0.9% 100 ML IV SCH ×2 (13:50→22:42)
[2017-02-19] MEDS: FENTANYL PF 2,500 MCG in SODIUM CHLORIDE 0.9% 200 ML IV PRN (15:59)
[2017-02-19] MEDS ORDERED: PROPOFOL 10 MG/ML, 20ML ONE (17:02)
[2017-02-19] MEDS ORDERED: ROCURONIUM 10 MG/ML ONE (17:02)
[2017-02-20] MEDS: ALBUTEROL/IPRATROPIUM 2.5MG/0.5MG, 3 ML NPPB SCH ×6 (02:00→22:45)
[2017-02-20 04:00] VITALS: BP 124/64
[2017-02-20 05:05] LABS: HEMATOCRIT 26.6 % (39.2-51.8); WHITE BLOOD COUNT 5.6 x10^3/uL (3.4-10)
[2017-02-20 05:16] LABS: BLOOD UREA NITROGEN 39 mg/dL (7-18)
[2017-02-20 05:20] LABS: ASPARTATE AMINO TRANSFERASE 23 U/L (15-37)
[2017-02-20] MEDS: METOCLOPRAMIDE 5 MG/ML, 2ML IVPush SCH ×3 (05:35→21:35)
[2017-02-20 06:14] LABS: ABG COLLECTION SITE LEFT BRACHIAL
[2017-02-20] MEDS: QUETIAPINE 25MG TABLET PO SCH ×2 (08:59→21:35)
[2017-02-20] MEDS: PANTOPRAZOLE 40 MG IV IVPush SCH (08:59)
[2017-02-20] MEDS: ENOXAPARIN 30 MG/0.3 ML SQ SCH ×2 (08:59→09:00)
[2017-02-20] MEDS: IRON SUCROSE COMPLEX 100MG/5ML IV SCH (10:20)
[2017-02-20] MEDS: ERGOCALCIFEROL 50,000 UNIT CAPSULE PO SCH (10:20)
[2017-02-20 10:58] LABS: HEP B SURF. AB < 3.1 mIU/mL (0.0-10.0)
[2017-02-20] MEDS: AMPICILLIN/SULBACTAM 3 GM in SODIUM CHLORIDE 0.9% 100 ML IV SCH ×2 (11:04→22:47)
[2017-02-21] MEDS: ALBUTEROL/IPRATROPIUM 2.5MG/0.5MG, 3 ML NPPB SCH ×6 (02:00→22:00)
[2017-02-21 04:00] VITALS: BP 136/58
[2017-02-21 05:08] LABS: HEMATOCRIT 25.8 % (39.2-51.8); HEMOGLOBIN 8.6 g/dL (13.7-18.0); WHITE BLOOD COUNT 6.3 x10^3/uL (3.4-10)
[2017-02-21 05:16] LABS: ASPARTATE AMINO TRANSFERASE 23 U/L (15-37); BLOOD UREA NITROGEN 28 mg/dL (7-18)
[2017-02-21] MEDS: METOCLOPRAMIDE 5 MG/ML, 2ML IVPush SCH ×3 (05:38→21:24)
[2017-02-21] MEDS: ENOXAPARIN 30 MG/0.3 ML SQ SCH (07:22)
[2017-02-21 07:41] LABS: ABG COLLECTION SITE LEFT BRACHIAL
[2017-02-21] MEDS: QUETIAPINE 25MG TABLET PO SCH ×2 (08:47→21:24)
[2017-02-21] MEDS: IRON SUCROSE COMPLEX 100MG/5ML IV SCH (08:47)
[2017-02-21] MEDS: PANTOPRAZOLE 40 MG IV IVPush SCH (08:47)
[2017-02-21] MEDS ORDERED: CEFAZOLIN PMX 1GM/50ML 0 ML ONE (12:26)
[2017-02-21] MEDS ORDERED: MIDAZOLAM 1 MG/ML, 5ML ONE (12:27)
[2017-02-21] MEDS ORDERED: FENTANYL PF 100 MCG/2ML ONE (12:27)
[2017-02-21] MEDS: AMPICILLIN/SULBACTAM 3 GM in SODIUM CHLORIDE 0.9% 100 ML IV SCH ×2 (13:05→23:10)
[2017-02-21] MEDS ORDERED: NEOSPORIN OINT, 15GM ONE (14:44)
[2017-02-21] MEDS ORDERED: BACITRACIN 50,000 UNIT ONE (14:44)
[2017-02-21] MEDS ORDERED: FENTANYL PF 250 MCG/5ML ONE (16:26)
[2017-02-21] MEDS: FENTANYL PF 100 MCG/2ML IVPush PRN (18:22)
[2017-02-21] MEDS: PROPOFOL 100 ML IV PRN (23:10)
[2017-02-22] MEDS: ALBUTEROL/IPRATROPIUM 2.5MG/0.5MG, 3 ML NPPB SCH ×6 (02:00→22:00)
[2017-02-22] MEDS: PROPOFOL 100 ML IV PRN (03:58)
[2017-02-22 04:41] VITALS: BP 104/50
[2017-02-22 04:45] LABS: ABG COLLECTION SITE LEFT BRACHIAL
[2017-02-22 04:56] LABS: HEMOGLOBIN 7.7 g/dL (13.7-18.0); WHITE BLOOD COUNT 8.6 x10^3/uL (3.4-10)
[2017-02-22 04:59] LABS: HEMATOCRIT 22.6 % (39.2-51.8)
[2017-02-22 05:01] LABS: ASPARTATE AMINO TRANSFERASE 25 U/L (15-37); BLOOD UREA NITROGEN 23 mg/dL (7-18)
[2017-02-22] MEDS: METOCLOPRAMIDE 5 MG/ML, 2ML IVPush SCH ×3 (05:35→21:40)
[2017-02-22 05:40] LABS: DIFF TOTAL CELLS COUNTED 100 CELL DIFF
[2017-02-22 05:43] LABS: ANISOCYTOSIS 1+; VERIFY COUNTS? YES
[2017-02-22 05:45] LABS: GIANT PLATELETS 1+; LARGE PLATELETS 1+
[2017-02-22] MEDS: ENOXAPARIN 30 MG/0.3 ML SQ SCH (09:00)
[2017-02-22] MEDS: PANTOPRAZOLE 40 MG IV IVPush SCH (09:23)
[2017-02-22] MEDS: IRON SUCROSE COMPLEX 100MG/5ML IV SCH (09:23)
[2017-02-22] MEDS: QUETIAPINE 25MG TABLET PO SCH ×2 (09:24→21:39)
[2017-02-22] MEDS: AMPICILLIN/SULBACTAM 3 GM in SODIUM CHLORIDE 0.9% 100 ML IV SCH ×2 (11:17→23:30)
[2017-02-22] MEDS ORDERED: MIDAZOLAM 1 MG/ML, 5ML ONE (11:24)
[2017-02-22] MEDS ORDERED: FENTANYL PF 100 MCG/2ML ONE (11:24)
[2017-02-22] MEDS: FENTANYL PF 100 MCG/2ML IVPush PRN (23:31)
[2017-02-23] MEDS: ALBUTEROL/IPRATROPIUM 2.5MG/0.5MG, 3 ML NPPB SCH ×6 (02:00→22:38)
[2017-02-23] MEDS: FENTANYL PF 100 MCG/2ML IVPush PRN ×4 (04:08→23:41)
[2017-02-23 04:30] VITALS: BP 122/44
[2017-02-23 05:34] LABS: HEMOGLOBIN 7.2 g/dL (13.7-18.0); WHITE BLOOD COUNT 10.5 x10^3/uL (3.4-10)
[2017-02-23 05:36] LABS: HEMATOCRIT 21.9 % (39.2-51.8)
[2017-02-23 05:45] LABS: BLOOD UREA NITROGEN 20 mg/dL (7-18)
[2017-02-23 05:56] LABS: ASPARTATE AMINO TRANSFERASE 41 U/L (15-37)
[2017-02-23] MEDS: METOCLOPRAMIDE 5 MG/ML, 2ML IVPush SCH (06:44)
[2017-02-23] MEDS: ALBUMIN HUMAN 25% 100 ML IV PRN ×2 (08:30→09:38)
[2017-02-23] MEDS ORDERED: ALBUMIN HUMAN 25% 100 ML IV PRN (08:30)
[2017-02-23] MEDS: ENOXAPARIN 30 MG/0.3 ML SQ SCH (09:00)
[2017-02-23] MEDS: IRON SUCROSE COMPLEX 100MG/5ML IV SCH (09:43)
[2017-02-23] MEDS: PANTOPRAZOLE 40 MG IV IVPush SCH (09:43)
[2017-02-23 10:16] VITALS: BP 90/47
[2017-02-23 10:27] VITALS: BP 105/51
[2017-02-23 10:32] VITALS: BP 98/52
[2017-02-23] MEDS: QUETIAPINE 25MG TABLET PO SCH ×2 (10:35→21:22)
[2017-02-23 10:43] VITALS: BP 112/50
[2017-02-23 10:47] VITALS: BP 121/51
[2017-02-23] MEDS: AMPICILLIN/SULBACTAM 3 GM in SODIUM CHLORIDE 0.9% 100 ML IV SCH ×2 (11:01→23:05)
[2017-02-23] MEDS ORDERED: SODIUM CHLORIDE 0.9%, 500ML IVBOLUS ONE (15:00)
[2017-02-23] MEDS: HYDROCORTISONE 100 MG INJ. IVPush SCH (16:20)
[2017-02-23] MEDS ORDERED: NOREPINEPHRINE 4 MG in SODIUM CHLORIDE 0.9% 246 ML IV PRN (18:00)
[2017-02-24] MEDS: HYDROCORTISONE 100 MG INJ. IVPush SCH ×3 (00:43→16:33)
[2017-02-24] MEDS: ALBUTEROL/IPRATROPIUM 2.5MG/0.5MG, 3 ML NPPB SCH ×6 (02:20→21:36)
[2017-02-24 04:00] VITALS: BP 111/50
[2017-02-24 05:29] LABS: ABG COLLECTION SITE RIGHT RADIAL; COLLATERAL CIRCULATION TESTING NORMAL
[2017-02-24 05:34] LABS: HEMATOCRIT 25.2 % (39.2-51.8); HEMOGLOBIN 8.4 g/dL (13.7-18.0); WHITE BLOOD COUNT 10.7 x10^3/uL (3.4-10)
[2017-02-24 05:50] LABS: ASPARTATE AMINO TRANSFERASE 19 U/L (15-37); BLOOD UREA NITROGEN 23 mg/dL (7-18)
[2017-02-24] MEDS: ALBUMIN HUMAN 25% 100 ML IV PRN ×3 (08:31→10:29)
[2017-02-24] MEDS: ENOXAPARIN 30 MG/0.3 ML SQ SCH (09:14)
[2017-02-24] MEDS: IRON SUCROSE COMPLEX 100MG/5ML IV SCH (09:14)
[2017-02-24] MEDS: PANTOPRAZOLE 40 MG IV IVPush SCH (09:15)
[2017-02-24] MEDS: MIDODRINE 5 MG TABLET NG SCH ×3 (09:15→21:16)
[2017-02-24] MEDS: QUETIAPINE 25MG TABLET PO SCH ×2 (09:16→21:16)
[2017-02-24] MEDS: AMPICILLIN/SULBACTAM 3 GM in SODIUM CHLORIDE 0.9% 100 ML IV SCH (12:54)
[2017-02-25] VITALS (8 sets, daily range): BP systolic 91–114; BP diastolic 45–59
[2017-02-25] MEDS: HYDROCORTISONE 100 MG INJ. IVPush SCH ×4 (01:10→23:50)
[2017-02-25] MEDS: AMPICILLIN/SULBACTAM 3 GM in SODIUM CHLORIDE 0.9% 100 ML IV SCH ×2 (01:10→14:06)
[2017-02-25] MEDS ORDERED: SODIUM CHLORIDE 0.9% 1,000ML IVBOLUS ONE (02:00)
[2017-02-25] MEDS: ALBUTEROL/IPRATROPIUM 2.5MG/0.5MG, 3 ML NPPB SCH ×6 (02:00→22:00)
[2017-02-25 04:37] LABS: BLOOD UREA NITROGEN 26 mg/dL (7-18)
[2017-02-25 04:41] LABS: ASPARTATE AMINO TRANSFERASE 17 U/L (15-37)
[2017-02-25 05:42] LABS: WHITE BLOOD COUNT 11.4 x10^3/uL (3.4-10)
[2017-02-25 05:46] LABS: HEMATOCRIT 20.9 % (39.2-51.8); HEMOGLOBIN 6.9 g/dL (13.7-18.0)
[2017-02-25] MEDS: ENOXAPARIN 30 MG/0.3 ML SQ SCH (08:03)
[2017-02-25] MEDS: PANTOPRAZOLE 40 MG IV IVPush SCH (08:24)
[2017-02-25] MEDS: QUETIAPINE 25MG TABLET PO SCH ×2 (08:24→20:48)
[2017-02-25] MEDS: MIDODRINE 5 MG TABLET NG SCH ×3 (08:24→20:48)
[2017-02-25] MEDS: ALBUMIN HUMAN 25% 100 ML IV PRN (10:04)
[2017-02-25] MEDS: FENTANYL PF 100 MCG/2ML IVPush PRN (11:31)
[2017-02-25] MEDS ORDERED: GLUCAGON 1 MG IM PRN (20:00)
[2017-02-25] MEDS ORDERED: DEXTROSE 50%, 50ML SYRINGE IVPush PRN (20:00)
[2017-02-26] MEDS: FENTANYL PF 100 MCG/2ML IVPush PRN ×2 (01:15→01:50)
[2017-02-26] MEDS: AMPICILLIN/SULBACTAM 3 GM in SODIUM CHLORIDE 0.9% 100 ML IV SCH ×2 (01:17→12:55)
[2017-02-26] MEDS: ALBUTEROL/IPRATROPIUM 2.5MG/0.5MG, 3 ML NPPB SCH ×6 (02:00→21:35)
[2017-02-26 04:00] VITALS: BP 104/58
[2017-02-26 05:22] LABS: ASPARTATE AMINO TRANSFERASE 19 U/L (15-37); BLOOD UREA NITROGEN 41 mg/dL (7-18)
[2017-02-26 05:28] LABS: HEMATOCRIT 24.5 % (39.2-51.8); HEMOGLOBIN 8.3 g/dL (13.7-18.0); WHITE BLOOD COUNT 16.6 x10^3/uL (3.4-10)
[2017-02-26 05:54] LABS: DIFF TOTAL CELLS COUNTED 100 CELL DIFF
[2017-02-26 05:57] LABS: ANISOCYTOSIS 1+; HYPOCHROMIA 1+; VERIFY COUNTS? YES
[2017-02-26 05:58] LABS: OVALOCYTES 1+; POLYCHROMASIA 1+
[2017-02-26 06:01] LABS: GIANT PLATELETS 1+; LARGE PLATELETS 1+
[2017-02-26 07:42] LABS: ABG COLLECTION SITE LEFT BRACHIAL
[2017-02-26] MEDS: ENOXAPARIN 30 MG/0.3 ML SQ SCH (08:44)
[2017-02-26] MEDS: MIDODRINE 5 MG TABLET NG SCH ×3 (08:44→21:09)
[2017-02-26] MEDS: PANTOPRAZOLE 40 MG IV IVPush SCH (08:44)
[2017-02-26] MEDS: QUETIAPINE 25MG TABLET PO SCH ×2 (08:44→21:09)
[2017-02-26] MEDS: HYDROCORTISONE 100 MG INJ. IVPush SCH ×2 (08:44→15:39)
[2017-02-26] MEDS: ALBUMIN HUMAN 25% 100 ML IV PRN (10:17)
[2017-02-26] MEDS: SODIUM PHOSPHATE 20 MMOL in SODIUM CHLORIDE 0.9% 500 ML IV SCH ×2 (11:50→21:09)
[2017-02-26] MEDS ORDERED: PROPOFOL 10 MG/ML, 20ML ONE (15:11)
[2017-02-26] MEDS ORDERED: FENTANYL PF 250 MCG/5ML ONE ×2 (17:56→18:18)
[2017-02-27] MEDS: PROPOFOL 100 ML IV PRN ×2 (00:05→04:12)
[2017-02-27] MEDS: HYDROCORTISONE 100 MG INJ. IVPush SCH ×3 (00:55→16:07)
[2017-02-27] MEDS: ACETAMINOPHEN 325 MG TABLET PO PRN (01:42)
[2017-02-27] MEDS: FENTANYL PF 2,500 MCG in SODIUM CHLORIDE 0.9% 200 ML IV PRN (01:50)
[2017-02-27] MEDS: ALBUTEROL/IPRATROPIUM 2.5MG/0.5MG, 3 ML NPPB SCH ×6 (02:00→22:35)
[2017-02-27 04:00] VITALS: BP 122/55
[2017-02-27] MEDS: AMPICILLIN/SULBACTAM 3 GM in SODIUM CHLORIDE 0.9% 100 ML IV SCH ×2 (04:09→12:19)
[2017-02-27 05:32] LABS: HEMATOCRIT 29.3 % (39.2-51.8); WHITE BLOOD COUNT 24.7 x10^3/uL (3.4-10)
[2017-02-27 05:42] LABS: ASPARTATE AMINO TRANSFERASE 29 U/L (15-37); BLOOD UREA NITROGEN 36 mg/dL (7-18)
[2017-02-27 05:52] LABS: DIFF TOTAL CELLS COUNTED 100 CELL DIFF
[2017-02-27 05:55] LABS: ANISOCYTOSIS 1+; POLYCHROMASIA 1+; VERIFY COUNTS? YES
[2017-02-27 05:57] LABS: LARGE PLATELETS 1+
[2017-02-27] MEDS: SODIUM PHOSPHATE 20 MMOL in SODIUM CHLORIDE 0.9% 500 ML IV SCH ×3 (07:00→23:14)
[2017-02-27] MEDS: QUETIAPINE 25MG TABLET PO SCH ×2 (08:48→20:41)
[2017-02-27] MEDS: MIDODRINE 5 MG TABLET NG SCH ×4 (08:48→20:41)
[2017-02-27] MEDS: ERGOCALCIFEROL 50,000 UNIT CAPSULE PO SCH (08:53)
[2017-02-27] MEDS: PANTOPRAZOLE 40 MG IV IVPush SCH (08:53)
[2017-02-27] MEDS: ENOXAPARIN 30 MG/0.3 ML SQ SCH ×2 (08:54→16:07)
[2017-02-28] MEDS: HYDROCORTISONE 100 MG INJ. IVPush SCH ×3 (00:53→16:45)
[2017-02-28] MEDS: AMPICILLIN/SULBACTAM 3 GM in SODIUM CHLORIDE 0.9% 100 ML IV SCH ×2 (00:57→13:59)
[2017-02-28] MEDS: ALBUTEROL/IPRATROPIUM 2.5MG/0.5MG, 3 ML NPPB SCH ×6 (02:00→22:00)
[2017-02-28 04:00] VITALS: BP 112/60
[2017-02-28 05:35] LABS: HEMATOCRIT 26.2 % (39.2-51.8); HEMOGLOBIN 8.7 g/dL (13.7-18.0); WHITE BLOOD COUNT 14.5 x10^3/uL (3.4-10)
[2017-02-28 05:38] LABS: BLOOD UREA NITROGEN 61 mg/dL (7-18)
[2017-02-28 05:42] LABS: ASPARTATE AMINO TRANSFERASE 17 U/L (15-37)
[2017-02-28 05:58] LABS: DIFF TOTAL CELLS COUNTED 100 CELL DIFF
[2017-02-28 06:01] LABS: ANISOCYTOSIS 1+; VERIFY COUNTS? YES
[2017-02-28 06:02] LABS: LARGE PLATELETS 1+; POLYCHROMASIA 1+
[2017-02-28] MEDS: MIDODRINE 5 MG TABLET NG SCH ×3 (09:00→21:37)
[2017-02-28] MEDS: QUETIAPINE 25MG TABLET PO SCH ×2 (10:32→21:37)
[2017-02-28] MEDS: PANTOPRAZOLE 40 MG IV IVPush SCH (10:32)
[2017-02-28] MEDS: FENTANYL PF 2,500 MCG in SODIUM CHLORIDE 0.9% 200 ML IV PRN (21:37)
[2017-03-01] MEDS: HYDROCORTISONE 100 MG INJ. IVPush SCH ×3 (01:11→17:18)
[2017-03-01] MEDS: AMPICILLIN/SULBACTAM 3 GM in SODIUM CHLORIDE 0.9% 100 ML IV SCH ×2 (01:12→13:01)
[2017-03-01] MEDS: ALBUTEROL/IPRATROPIUM 2.5MG/0.5MG, 3 ML NPPB SCH ×3 (02:00→10:00)
[2017-03-01] MEDS ORDERED: FLUCONAZOLE 400 MG/200 ML 200 ML IV ONE (02:30)
[2017-03-01 04:00] VITALS: BP 124/60
[2017-03-01 04:45] LABS: HEMATOCRIT 27.7 % (39.2-51.8); HEMOGLOBIN 9.1 g/dL (13.7-18.0); WHITE BLOOD COUNT 15.5 x10^3/uL (3.4-10)
[2017-03-01 04:58] LABS: BLOOD UREA NITROGEN 48 mg/dL (7-18)
[2017-03-01 05:07] LABS: DIFF TOTAL CELLS COUNTED 100 CELL DIFF
[2017-03-01 05:08] LABS: ANISOCYTOSIS 1+; POLYCHROMASIA 1+
[2017-03-01 05:09] LABS: LARGE PLATELETS 1+; VERIFY COUNTS? YES
[2017-03-01] MEDS: PANTOPRAZOLE 40 MG IV IVPush SCH (08:42)
[2017-03-01] MEDS: METOPROLOL TARTRATE 25 MG TABLET PO SCH ×2 (08:42→17:18)
[2017-03-01] MEDS: QUETIAPINE 25MG TABLET PO SCH ×2 (08:42→20:39)
[2017-03-01] MEDS: MIDODRINE 5 MG TABLET NG SCH (08:42)
[2017-03-01] MEDS ORDERED: FLUCONAZOLE 100MG/50ML 100 MG in BAG 1 EACH IVPB SCH (12:00)
[2017-03-01] MEDS ORDERED: ALBUTEROL/IPRATROPIUM 2.5MG/0.5MG, 3 ML NPPB PRN (12:00)
[2017-03-01] MEDS: MICAFUNGIN 100 MG in SODIUM CHLORIDE 0.9% 100 ML IV SCH (19:43)
[2017-03-02] MEDS: AMPICILLIN/SULBACTAM 3 GM in SODIUM CHLORIDE 0.9% 100 ML IV SCH (00:14)
[2017-03-02] MEDS: HYDROCORTISONE 100 MG INJ. IVPush SCH ×4 (00:14→23:17)
[2017-03-02] MEDS: FENTANYL PF 2,500 MCG in SODIUM CHLORIDE 0.9% 200 ML IV PRN (00:51)
[2017-03-02 03:00] VITALS: BP 131/63
[2017-03-02 04:46] LABS: HEMATOCRIT 26.2 % (39.2-51.8); HEMOGLOBIN 8.6 g/dL (13.7-18.0); WHITE BLOOD COUNT 15.3 x10^3/uL (3.4-10)
[2017-03-02 04:54] LABS: ASPARTATE AMINO TRANSFERASE 13 U/L (15-37); BLOOD UREA NITROGEN 75 mg/dL (7-18)
[2017-03-02] MEDS: METOPROLOL TARTRATE 25 MG TABLET PO SCH ×2 (05:29→17:25)
[2017-03-02 05:39] LABS: DIFF TOTAL CELLS COUNTED 100 CELL DIFF
[2017-03-02 05:40] LABS: ANISOCYTOSIS 1+; POLYCHROMASIA 1+; VERIFY COUNTS? YES
[2017-03-02 05:41] LABS: LARGE PLATELETS 1+
[2017-03-02] MEDS: PANTOPRAZOLE 40 MG IV IVPush SCH (08:45)
[2017-03-02] MEDS: QUETIAPINE 25MG TABLET PO SCH ×2 (08:47→21:58)
[2017-03-02] MEDS: LACTOBACILLUS CHEW TABLET PO SCH ×3 (08:55→21:41)
[2017-03-02] MEDS ORDERED: MEROPENEM 500 MG in SODIUM CHLORIDE 0.9% 100 ML IV PRN (09:00)
[2017-03-02] MEDS ORDERED: MINERAL OIL 10 ML VIAL MC ONE ×3 (09:54→13:06)
[2017-03-02] MEDS ORDERED: THROMBIN 20,000 UNIT VIAL TP ONE (09:55)
[2017-03-02] MEDS: CHOLESTYRAMINE 4GM PACKET PO SCH ×2 (09:55→21:00)
[2017-03-02] MEDS ORDERED: LIDOCAINE/PF 1%, 30ML ONE (09:55)
[2017-03-02] MEDS ORDERED: EPINEPHRINE 1 MG/ML, 1ML ONE (09:55)
[2017-03-02] MEDS: MEROPENEM 500 MG in SODIUM CHLORIDE 0.9% 100 ML IV SCH ×2 (10:04→21:41)
[2017-03-02] MEDS ORDERED: PHENYLEPHRINE 10 MG/ML ONE (11:06)
[2017-03-02] MEDS ORDERED: ONDANSETRON 2MG/ML, 2ML ONE (11:06)
[2017-03-02] MEDS ORDERED: DEXAMETHASONE 4 MG/ML, 1ML ONE (11:06)
[2017-03-02] MEDS ORDERED: PROPOFOL 10 MG/ML, 50ML ONE (11:06)
[2017-03-02] MEDS ORDERED: FENTANYL PF 250 MCG/5ML ONE ×3 (11:09→12:13)
[2017-03-02] MEDS ORDERED: MIDAZOLAM 1 MG/ML, 2ML ONE (11:09)
[2017-03-02] MEDS ORDERED: BUPIVACAINE/PF-EPI 0.5% 1:200K ONE (11:57)
[2017-03-02] MEDS ORDERED: FLUCONAZOLE 400 MG/200 ML 200 ML IV SCH (12:00)
[2017-03-02] MEDS: FENTANYL PF 100 MCG/2ML IVPush PRN ×3 (14:53→23:17)
[2017-03-02] MEDS: MICAFUNGIN 100 MG in SODIUM CHLORIDE 0.9% 100 ML IV SCH (20:38)
[2017-03-03] MEDS: FENTANYL PF 2,500 MCG in SODIUM CHLORIDE 0.9% 200 ML IV PRN ×2 (01:59→23:23)
[2017-03-03] MEDS: FENTANYL PF 100 MCG/2ML IVPush PRN ×2 (03:39→17:03)
[2017-03-03 04:00] VITALS: BP 138/69
[2017-03-03 04:30] LABS: HEMATOCRIT 24.7 % (39.2-51.8); HEMOGLOBIN 8.3 g/dL (13.7-18.0); WHITE BLOOD COUNT 19.3 x10^3/uL (3.4-10)
[2017-03-03 04:46] LABS: C-REACTIVE PROTEIN, QUANT 2.2 mg/dL (0.02-0.49)
[2017-03-03 04:55] LABS: DIFF TOTAL CELLS COUNTED 100 CELL DIFF
[2017-03-03 04:58] LABS: ANISOCYTOSIS 1+; LARGE PLATELETS 1+; POLYCHROMASIA 1+
[2017-03-03 05:10] LABS: BLOOD UREA NITROGEN 46 mg/dL (7-18)
[2017-03-03] MEDS: METOPROLOL TARTRATE 25 MG TABLET PO SCH ×2 (06:17→17:02)
[2017-03-03 06:35] LABS: VERIFY COUNTS? YES
[2017-03-03] MEDS: MEROPENEM 500 MG in SODIUM CHLORIDE 0.9% 100 ML IV SCH (09:00)
[2017-03-03] MEDS: OXYcodone 5 MG/5 ML ORAL.SOL UDC PO PRN ×4 (09:47→21:21)
[2017-03-03] MEDS: HYDROCORTISONE 100 MG INJ. IVPush SCH ×3 (09:47→23:22)
[2017-03-03] MEDS: LACTOBACILLUS CHEW TABLET PO SCH ×3 (09:47→20:14)
[2017-03-03] MEDS: QUETIAPINE 25MG TABLET PO SCH ×2 (09:47→20:14)
[2017-03-03] MEDS: PANTOPRAZOLE 40 MG IV IVPush SCH (09:47)
[2017-03-03] MEDS: PIPERACILLIN/TAZO 2.25 GM in SODIUM CHLORIDE 0.9% 50 ML IV SCH ×3 (10:57→21:21)
[2017-03-03] MEDS: CHOLESTYRAMINE 4GM PACKET PO SCH ×2 (13:54→21:21)
[2017-03-03] MEDS: MICAFUNGIN 100 MG in SODIUM CHLORIDE 0.9% 100 ML IV SCH (20:14)
[2017-03-04] MEDS: OXYcodone 5 MG/5 ML ORAL.SOL UDC PO PRN ×4 (03:22→21:10)
[2017-03-04 04:00] VITALS: BP 142/69
[2017-03-04 04:11] LABS: HEMATOCRIT 23.1 % (39.2-51.8); HEMOGLOBIN 7.6 g/dL (13.7-18.0)
[2017-03-04 04:35] LABS: DIFF TOTAL CELLS COUNTED 100 CELL DIFF
[2017-03-04 04:37] LABS: ANISOCYTOSIS 1+; VERIFY COUNTS? YES
[2017-03-04 04:38] LABS: LARGE PLATELETS 1+
[2017-03-04 04:39] LABS: OVALOCYTES 1+
[2017-03-04] MEDS: METOPROLOL TARTRATE 25 MG TABLET PO SCH ×2 (05:01→18:35)
[2017-03-04] MEDS: PIPERACILLIN/TAZO 2.25 GM in SODIUM CHLORIDE 0.9% 50 ML IV SCH ×4 (05:01→23:02)
[2017-03-04] MEDS: FENTANYL PF 100 MCG/2ML IVPush PRN ×4 (05:06→14:48)
[2017-03-04 07:25] LABS: BLOOD UREA NITROGEN 81 mg/dL (7-18)
[2017-03-04] MEDS ORDERED: FUROSEMIDE 100 MG/10 ML IVPush ONE (08:00)
[2017-03-04] MEDS: PANTOPRAZOLE 40 MG IV IVPush SCH (08:44)
[2017-03-04] MEDS: HYDROCORTISONE 100 MG INJ. IVPush SCH ×3 (08:44→23:05)
[2017-03-04] MEDS: LACTOBACILLUS CHEW TABLET PO SCH ×3 (08:45→20:22)
[2017-03-04] MEDS: CHOLESTYRAMINE 4GM PACKET PO SCH ×2 (08:45→21:11)
[2017-03-04] MEDS: QUETIAPINE 25MG TABLET PO SCH ×2 (08:46→20:22)
[2017-03-04] MEDS ORDERED: LIDOCAINE-MPF 1%, 2ML ENDO PRN (19:00)
[2017-03-04] MEDS ORDERED: GLUCAGON 1 MG IM PRN (19:00)
[2017-03-04] MEDS ORDERED: PROPOFOL 100 ML IV PRN (19:00)
[2017-03-04] MEDS ORDERED: FENTANYL PF 100 MCG/2ML IVPush PRN (19:00)
[2017-03-04] MEDS ORDERED: DEXTROSE 50%, 50ML SYRINGE IVPush PRN (19:00)
[2017-03-04] MEDS: MICAFUNGIN 100 MG in SODIUM CHLORIDE 0.9% 100 ML IV SCH (20:22)
[2017-03-04] MEDS: FENTANYL PF 2,500 MCG in SODIUM CHLORIDE 0.9% 200 ML IV PRN (23:03)
[2017-03-05] VITALS (8 sets, daily range): BP systolic 117–144; BP diastolic 46–59
[2017-03-05 04:28] LABS: WHITE BLOOD COUNT 15.9 x10^3/uL (3.4-10)
[2017-03-05 04:29] LABS: HEMATOCRIT 20.4 % (39.2-51.8); HEMOGLOBIN 6.8 g/dL (13.7-18.0)
[2017-03-05 04:32] LABS: ASPARTATE AMINO TRANSFERASE 12 U/L (15-37); BLOOD UREA NITROGEN 93 mg/dL (7-18)
[2017-03-05 05:36] LABS: DIFF TOTAL CELLS COUNTED 100 CELL DIFF
[2017-03-05 05:38] LABS: VERIFY COUNTS? YES
[2017-03-05 05:39] LABS: ANISOCYTOSIS 1+; OVALOCYTES 1+
[2017-03-05 05:41] LABS: LARGE PLATELETS 1+
[2017-03-05] MEDS: PIPERACILLIN/TAZO 2.25 GM in SODIUM CHLORIDE 0.9% 50 ML IV SCH ×4 (05:43→20:58)
[2017-03-05] MEDS: ACETAMINOPHEN 325 MG TABLET PO PRN (05:43)
[2017-03-05] MEDS: OXYcodone 5 MG/5 ML ORAL.SOL UDC PO PRN ×3 (05:43→21:01)
[2017-03-05] MEDS: METOPROLOL TARTRATE 25 MG TABLET PO SCH ×2 (05:44→18:27)
[2017-03-05] MEDS: CHOLESTYRAMINE 4GM PACKET PO SCH ×2 (09:00→21:55)
[2017-03-05] MEDS ORDERED: FUROSEMIDE 40 MG/4 ML IV ONE ×2 (09:30→21:30)
[2017-03-05] MEDS: QUETIAPINE 25MG TABLET PO SCH ×2 (10:39→20:57)
[2017-03-05] MEDS: LACTOBACILLUS CHEW TABLET PO SCH ×3 (10:39→20:54)
[2017-03-05] MEDS: HYDROCORTISONE 100 MG INJ. IVPush SCH ×2 (10:40→16:06)
[2017-03-05] MEDS: PANTOPRAZOLE 40 MG IV IVPush SCH (10:41)
[2017-03-05] MEDS: FENTANYL PF 2,500 MCG in SODIUM CHLORIDE 0.9% 200 ML IV PRN (20:00)
[2017-03-05] MEDS: MICAFUNGIN 100 MG in SODIUM CHLORIDE 0.9% 100 ML IV SCH (20:11)
[2017-03-06] MEDS: HYDROCORTISONE 100 MG INJ. IVPush SCH ×2 (00:15→08:48)
[2017-03-06 04:00] VITALS: BP 147/54
[2017-03-06] MEDS: PIPERACILLIN/TAZO 2.25 GM in SODIUM CHLORIDE 0.9% 50 ML IV SCH ×4 (04:17→21:53)
[2017-03-06 05:04] LABS: HEMATOCRIT 26.2 % (39.2-51.8); HEMOGLOBIN 8.8 g/dL (13.7-18.0); WHITE BLOOD COUNT 18.4 x10^3/uL (3.4-10)
[2017-03-06 05:32] LABS: DIFF TOTAL CELLS COUNTED 100 CELL DIFF
[2017-03-06 05:34] LABS: VERIFY COUNTS? YES
[2017-03-06 05:37] LABS: HYPOCHROMIA 1+
[2017-03-06 05:39] LABS: OVALOCYTES 1+
[2017-03-06 05:40] LABS: LARGE PLATELETS 1+
[2017-03-06] MEDS: METOPROLOL TARTRATE 25 MG TABLET PO SCH ×2 (06:05→17:01)
[2017-03-06] MEDS: LACTOBACILLUS CHEW TABLET PO SCH ×3 (07:37→20:24)
[2017-03-06] MEDS: CHOLESTYRAMINE 4GM PACKET PO SCH ×2 (07:37→21:00)
[2017-03-06] MEDS: QUETIAPINE 25MG TABLET PO SCH ×2 (07:38→20:24)
[2017-03-06] MEDS: PANTOPRAZOLE 40 MG IV IVPush SCH (08:48)
[2017-03-06] MEDS ORDERED: MIDAZOLAM 1 MG/ML, 2ML ONE (09:00)
[2017-03-06] MEDS ORDERED: FENTANYL PF 250 MCG/5ML ONE (09:00)
[2017-03-06] MEDS ORDERED: KETAMINE 10 MG/ML, 20ML ONE (09:00)
[2017-03-06] MEDS ORDERED: BUPIVACAINE/PF 0.25% ONE (09:22)
[2017-03-06] MEDS ORDERED: EPHEDRINE 50 MG/ML, 1ML ONE (09:35)
[2017-03-06] MEDS ORDERED: HYDROmorphone 2 MG/ML, 1ML ONE (10:39)
[2017-03-06] MEDS ORDERED: FUROSEMIDE 40 MG/4 ML IV ONE (11:00)
[2017-03-06] MEDS ORDERED: FUROSEMIDE 40 MG/4 ML ONE (15:42)
[2017-03-06] MEDS: MICAFUNGIN 100 MG in SODIUM CHLORIDE 0.9% 100 ML IV SCH (20:24)
[2017-03-06] MEDS: OXYcodone 5 MG/5 ML ORAL.SOL UDC PO PRN (20:37)
[2017-03-06] MEDS: FENTANYL PF 2,500 MCG in SODIUM CHLORIDE 0.9% 200 ML IV PRN (23:37)
[2017-03-07] MEDS: PIPERACILLIN/TAZO 2.25 GM in SODIUM CHLORIDE 0.9% 50 ML IV SCH ×4 (03:47→22:02)
[2017-03-07 04:00] VITALS: BP 105/52
[2017-03-07] MEDS: OXYcodone 5 MG/5 ML ORAL.SOL UDC PO PRN ×3 (04:15→13:57)
[2017-03-07] MEDS: ACETAMINOPHEN 325 MG TABLET PO PRN (04:15)
[2017-03-07] MEDS: METOPROLOL TARTRATE 25 MG TABLET PO SCH ×2 (06:00→17:27)
[2017-03-07] MEDS: ALBUTEROL/IPRATROPIUM 2.5MG/0.5MG, 3 ML NPPB PRN (06:45)
[2017-03-07] MEDS: HYDROCORTISONE 100 MG INJ. IVPush SCH (08:29)
[2017-03-07] MEDS: ERGOCALCIFEROL 50,000 UNIT CAPSULE PO SCH (08:29)
[2017-03-07] MEDS: PANTOPRAZOLE 40 MG IV IVPush SCH (08:29)
[2017-03-07] MEDS: QUETIAPINE 25MG TABLET PO SCH ×2 (08:29→20:44)
[2017-03-07] MEDS: GABAPENTIN 100 MG CAPSULE PO SCH ×3 (08:29→20:44)
[2017-03-07] MEDS: LACTOBACILLUS CHEW TABLET PO SCH ×3 (08:29→22:02)
[2017-03-07] MEDS: CHOLESTYRAMINE 4GM PACKET PO SCH (08:30)
[2017-03-07] MEDS ORDERED: LIDOCAINE 1%, 20ML ONE (13:40)
[2017-03-07 15:15] LABS: ASPARTATE AMINO TRANSFERASE 28 U/L (15-37); BLOOD UREA NITROGEN 100 mg/dL (7-18)
[2017-03-07] MEDS: FENTANYL PF 2,500 MCG in SODIUM CHLORIDE 0.9% 200 ML IV PRN (16:52)
[2017-03-07] MEDS: MICAFUNGIN 100 MG in SODIUM CHLORIDE 0.9% 100 ML IV SCH (20:17)
[2017-03-07] MEDS: CHOLESTYRAMINE LIGHT 4GM PACKET PO SCH (22:02)
[2017-03-08] VITALS (9 sets, daily range): BP systolic 110–165; BP diastolic 39–68
[2017-03-08] MEDS: ALBUTEROL/IPRATROPIUM 2.5MG/0.5MG, 3 ML NPPB PRN (00:08)
[2017-03-08] MEDS: ACETAMINOPHEN 325 MG TABLET PO PRN ×2 (01:18→10:53)
[2017-03-08 04:32] LABS: WHITE BLOOD COUNT 13.2 x10^3/uL (3.4-10)
[2017-03-08 04:35] LABS: HEMATOCRIT 18.4 % (39.2-51.8); HEMOGLOBIN 6.2 g/dL (13.7-18.0)
[2017-03-08 04:38] LABS: BLOOD UREA NITROGEN 57 mg/dL (7-18)
[2017-03-08 04:41] LABS: ASPARTATE AMINO TRANSFERASE 29 U/L (15-37)
[2017-03-08] MEDS: METOPROLOL TARTRATE 25 MG TABLET PO SCH ×2 (05:16→21:00)
[2017-03-08] MEDS: PIPERACILLIN/TAZO 2.25 GM in SODIUM CHLORIDE 0.9% 50 ML IV SCH ×4 (05:16→21:47)
[2017-03-08] MEDS: HYDROCORTISONE 100 MG INJ. IVPush SCH (10:47)
[2017-03-08] MEDS: LACTOBACILLUS CHEW TABLET PO SCH ×3 (10:47→20:35)
[2017-03-08] MEDS: PANTOPRAZOLE 40 MG IV IVPush SCH (10:47)
[2017-03-08] MEDS: QUETIAPINE 25MG TABLET PO SCH ×2 (10:48→20:35)
[2017-03-08] MEDS: CHOLESTYRAMINE LIGHT 4GM PACKET PO SCH ×2 (10:48→20:36)
[2017-03-08] MEDS: GABAPENTIN 100 MG CAPSULE PO SCH ×3 (10:48→20:35)
[2017-03-08] MEDS: FENTANYL PF 2,500 MCG in SODIUM CHLORIDE 0.9% 200 ML IV PRN (18:06)
[2017-03-08] MEDS: MICAFUNGIN 100 MG in SODIUM CHLORIDE 0.9% 100 ML IV SCH (20:31)
[2017-03-09] MEDS: PIPERACILLIN/TAZO 2.25 GM in SODIUM CHLORIDE 0.9% 50 ML IV SCH ×4 (02:12→22:31)
[2017-03-09 04:00] VITALS: BP 121/47
[2017-03-09 04:57] LABS: HEMATOCRIT 26.6 % (39.2-51.8); WHITE BLOOD COUNT 15.2 x10^3/uL (3.4-10)
[2017-03-09 05:05] LABS: ASPARTATE AMINO TRANSFERASE 44 U/L (15-37); BLOOD UREA NITROGEN 64 mg/dL (7-18)
[2017-03-09] MEDS: METOPROLOL TARTRATE 25 MG TABLET PO SCH ×2 (06:17→18:16)
[2017-03-09] MEDS: GABAPENTIN 100 MG CAPSULE PO SCH ×3 (08:49→21:14)
[2017-03-09] MEDS: PANTOPRAZOLE 40 MG IV IVPush SCH (08:49)
[2017-03-09] MEDS: LACTOBACILLUS CHEW TABLET PO SCH ×3 (08:49→21:13)
[2017-03-09] MEDS: QUETIAPINE 25MG TABLET PO SCH ×2 (08:50→21:13)
[2017-03-09] MEDS: HYDROCORTISONE 100 MG INJ. IVPush SCH (08:50)
[2017-03-09] MEDS: CHOLESTYRAMINE LIGHT 4GM PACKET PO SCH (10:35)
[2017-03-09] MEDS: MICAFUNGIN 100 MG in SODIUM CHLORIDE 0.9% 100 ML IV SCH (19:58)
[2017-03-10] MEDS: CHOLESTYRAMINE LIGHT 4GM PACKET PO SCH ×4 (00:35→22:01)
[2017-03-10] MEDS: FENTANYL PF 2,500 MCG in SODIUM CHLORIDE 0.9% 200 ML IV PRN (01:22)
[2017-03-10 04:00] VITALS: BP 113/48
[2017-03-10] MEDS: PIPERACILLIN/TAZO 2.25 GM in SODIUM CHLORIDE 0.9% 50 ML IV SCH ×4 (04:31→22:01)
[2017-03-10] MEDS: ACETAMINOPHEN 325 MG TABLET PO PRN ×2 (04:33→19:53)
[2017-03-10 04:49] LABS: ASPARTATE AMINO TRANSFERASE 31 U/L (15-37); BLOOD UREA NITROGEN 38 mg/dL (7-18)
[2017-03-10 04:54] LABS: HEMATOCRIT 25.1 % (39.2-51.8); HEMOGLOBIN 8.6 g/dL (13.7-18.0); WHITE BLOOD COUNT 14.1 x10^3/uL (3.4-10)
[2017-03-10] MEDS: METOPROLOL TARTRATE 25 MG TABLET PO SCH ×2 (05:50→16:18)
[2017-03-10] MEDS ORDERED: REGADENOSON 0.4 MG/5 ML SYRINGE ONE ×2 (08:47→13:19)
[2017-03-10] MEDS: LACTOBACILLUS CHEW TABLET PO SCH ×3 (10:10→21:20)
[2017-03-10] MEDS: PANTOPRAZOLE 40 MG IV IVPush SCH (10:10)
[2017-03-10] MEDS: QUETIAPINE 25MG TABLET PO SCH ×2 (10:11→21:19)
[2017-03-10] MEDS: OXYcodone 5 MG/5 ML ORAL.SOL UDC PO PRN (19:53)
[2017-03-10] MEDS: MICAFUNGIN 100 MG in SODIUM CHLORIDE 0.9% 100 ML IV SCH (19:53)
[2017-03-10] MEDS: GABAPENTIN 300 MG CAPSULE PO SCH (21:19)
[2017-03-10] MEDS: HEPARIN 5,000 UNITS/ML, 1ML SQ SCH (22:01)
[2017-03-11 04:00] VITALS: BP 129/57
[2017-03-11] MEDS: PIPERACILLIN/TAZO 2.25 GM in SODIUM CHLORIDE 0.9% 50 ML IV SCH ×3 (04:43→21:35)
[2017-03-11] MEDS: OXYcodone 5 MG/5 ML ORAL.SOL UDC PO PRN ×4 (05:05→22:21)
[2017-03-11] MEDS: ACETAMINOPHEN 325 MG TABLET PO PRN ×2 (05:06→20:51)
[2017-03-11 05:24] LABS: HEMATOCRIT 26.8 % (39.2-51.8); HEMOGLOBIN 9.1 g/dL (13.7-18.0); WHITE BLOOD COUNT 14.9 x10^3/uL (3.4-10)
[2017-03-11 05:37] LABS: ASPARTATE AMINO TRANSFERASE 24 U/L (15-37); BLOOD UREA NITROGEN 45 mg/dL (7-18)
[2017-03-11] MEDS: METOPROLOL TARTRATE 25 MG TABLET PO SCH ×2 (06:00→18:10)
[2017-03-11] MEDS: HEPARIN 5,000 UNITS/ML, 1ML SQ SCH ×3 (06:00→21:35)
[2017-03-11] MEDS: LACTOBACILLUS CHEW TABLET PO SCH ×3 (09:02→20:44)
[2017-03-11] MEDS: PANTOPRAZOLE 40 MG IV IVPush SCH (09:02)
[2017-03-11] MEDS: QUETIAPINE 25MG TABLET PO SCH ×2 (09:02→20:45)
[2017-03-11] MEDS: CHOLESTYRAMINE LIGHT 4GM PACKET PO SCH ×2 (10:28→21:35)
[2017-03-11] MEDS ORDERED: PROPOFOL 100 ML IV PRN (14:30)
[2017-03-11] MEDS ORDERED: DEXTROSE 50%, 50ML SYRINGE IVPush PRN (14:30)
[2017-03-11] MEDS ORDERED: FENTANYL PF 100 MCG/2ML IVPush PRN (14:30)
[2017-03-11] MEDS ORDERED: GLUCAGON 1 MG IM PRN (14:30)
[2017-03-11] MEDS ORDERED: LIDOCAINE-MPF 1%, 2ML ENDO PRN (14:30)
[2017-03-11] MEDS ORDERED: ALBUMIN HUMAN 25% 100 ML IV PRN (14:30)
[2017-03-11] MEDS: MICAFUNGIN 100 MG in SODIUM CHLORIDE 0.9% 100 ML IV SCH (20:44)
[2017-03-11] MEDS: GABAPENTIN 300 MG CAPSULE PO SCH (20:46)
[2017-03-12] MEDS: PIPERACILLIN/TAZO 2.25 GM in SODIUM CHLORIDE 0.9% 50 ML IV SCH ×4 (02:52→21:21)
[2017-03-12] MEDS: OXYcodone 5 MG/5 ML ORAL.SOL UDC PO PRN ×2 (03:56→10:30)
[2017-03-12 04:00] VITALS: BP 119/52
[2017-03-12 04:11] LABS: HEMATOCRIT 24.7 % (39.2-51.8); HEMOGLOBIN 8.3 g/dL (13.7-18.0); WHITE BLOOD COUNT 11.4 x10^3/uL (3.4-10)
[2017-03-12] MEDS: METOPROLOL TARTRATE 25 MG TABLET PO SCH ×2 (05:49→18:36)
[2017-03-12] MEDS: HEPARIN 5,000 UNITS/ML, 1ML SQ SCH ×3 (05:49→21:39)
[2017-03-12] MEDS: ACETAMINOPHEN 325 MG TABLET PO PRN (05:52)
[2017-03-12] MEDS: QUETIAPINE 25MG TABLET PO SCH ×2 (08:57→21:21)
[2017-03-12] MEDS: LACTOBACILLUS CHEW TABLET PO SCH ×3 (08:57→21:21)
[2017-03-12] MEDS: PANTOPRAZOLE 40 MG IV IVPush SCH (08:57)
[2017-03-12] MEDS: CHOLESTYRAMINE LIGHT 4GM PACKET PO SCH ×2 (10:26→21:21)
[2017-03-12] MEDS ORDERED: PROPOFOL 10 MG/ML, 20ML ONE (15:37)
[2017-03-12] MEDS ORDERED: MIDAZOLAM 1 MG/ML, 2ML ONE (16:40)
[2017-03-12] MEDS ORDERED: FENTANYL PF 250 MCG/5ML ONE (16:40)
[2017-03-12] MEDS ORDERED: KETAMINE 10 MG/ML, 20ML ONE (16:40)
[2017-03-12] MEDS: MICAFUNGIN 100 MG in SODIUM CHLORIDE 0.9% 100 ML IV SCH (21:20)
[2017-03-12] MEDS: GABAPENTIN 300 MG CAPSULE PO SCH (21:21)
[2017-03-13] MEDS: PIPERACILLIN/TAZO 2.25 GM in SODIUM CHLORIDE 0.9% 50 ML IV SCH ×4 (03:28→22:23)
[2017-03-13 04:00] VITALS: BP 129/59
[2017-03-13 04:23] LABS: BLOOD UREA NITROGEN 29 mg/dL (7-18); HEMATOCRIT 23.4 % (39.2-51.8); HEMOGLOBIN 7.8 g/dL (13.7-18.0); WHITE BLOOD COUNT 9.7 x10^3/uL (3.4-10)
[2017-03-13 04:28] LABS: ASPARTATE AMINO TRANSFERASE 15 U/L (15-37)
[2017-03-13] MEDS: HEPARIN 5,000 UNITS/ML, 1ML SQ SCH ×3 (05:31→22:28)
[2017-03-13] MEDS: METOPROLOL TARTRATE 25 MG TABLET PO SCH ×2 (05:31→17:44)
[2017-03-13] MEDS: LACTOBACILLUS CHEW TABLET PO SCH ×3 (09:09→21:06)
[2017-03-13] MEDS: QUETIAPINE 25MG TABLET PO SCH (09:09)
[2017-03-13] MEDS: PANTOPRAZOLE 40 MG IV IVPush SCH (09:19)
[2017-03-13] MEDS: CHOLESTYRAMINE LIGHT 4GM PACKET PO SCH ×2 (10:21→22:23)
[2017-03-13] MEDS: OXYcodone 5 MG/5 ML ORAL.SOL UDC PO PRN ×2 (12:45→22:28)
[2017-03-13 20:40] VITALS: BP 127/67
[2017-03-13] MEDS: MICAFUNGIN 100 MG in SODIUM CHLORIDE 0.9% 100 ML IV SCH (20:45)
[2017-03-13] MEDS: GABAPENTIN 300 MG CAPSULE PO SCH (21:06)
[2017-03-14 02:46] VITALS: BP 134/62
[2017-03-14] MEDS: PIPERACILLIN/TAZO 2.25 GM in SODIUM CHLORIDE 0.9% 50 ML IV SCH ×4 (04:00→21:44)
[2017-03-14] MEDS: OXYcodone 5 MG/5 ML ORAL.SOL UDC PO PRN ×2 (05:31→10:09)
[2017-03-14] MEDS: HEPARIN 5,000 UNITS/ML, 1ML SQ SCH ×3 (05:32→21:44)
[2017-03-14] MEDS: METOPROLOL TARTRATE 25 MG TABLET PO SCH ×2 (05:32→17:20)
[2017-03-14 06:31] LABS: HEMOGLOBIN 7.6 g/dL (13.7-18.0); WHITE BLOOD COUNT 10.5 x10^3/uL (3.4-10)
[2017-03-14 06:34] LABS: HEMATOCRIT 22.6 % (39.2-51.8)
[2017-03-14 06:38] LABS: ASPARTATE AMINO TRANSFERASE 15 U/L (15-37); BLOOD UREA NITROGEN 33 mg/dL (7-18)
[2017-03-14 06:45] VITALS: BP 129/66
[2017-03-14] MEDS: LACTOBACILLUS CHEW TABLET PO SCH ×3 (09:10→20:13)
[2017-03-14] MEDS: CHOLESTYRAMINE LIGHT 4GM PACKET PO SCH ×2 (09:10→21:44)
[2017-03-14] MEDS: ERGOCALCIFEROL 50,000 UNIT CAPSULE PO SCH (09:10)
[2017-03-14 16:29] VITALS: BP 147/65
[2017-03-14 19:44] VITALS: BP 150/70
[2017-03-14] MEDS: MICAFUNGIN 100 MG in SODIUM CHLORIDE 0.9% 100 ML IV SCH (19:49)
[2017-03-14] MEDS: GABAPENTIN 300 MG CAPSULE PO SCH (20:13)
[2017-03-14] MEDS: ALBUTEROL/IPRATROPIUM 2.5MG/0.5MG, 3 ML NPPB PRN (22:06)
[2017-03-15] MEDS: OXYcodone 5 MG/5 ML ORAL.SOL UDC PO PRN ×2 (01:30→10:51)
[2017-03-15 01:33] VITALS: BP 144/79
[2017-03-15] MEDS: PIPERACILLIN/TAZO 2.25 GM in SODIUM CHLORIDE 0.9% 50 ML IV SCH ×4 (04:05→22:49)
[2017-03-15] MEDS: METOPROLOL TARTRATE 25 MG TABLET PO SCH ×3 (05:26→17:28)
[2017-03-15] MEDS: HEPARIN 5,000 UNITS/ML, 1ML SQ SCH ×3 (05:26→22:48)
[2017-03-15 06:11] LABS: HEMOGLOBIN 7.7 g/dL (13.7-18.0); WHITE BLOOD COUNT 12.8 x10^3/uL (3.4-10)
[2017-03-15 06:22] LABS: BLOOD UREA NITROGEN 31 mg/dL (7-18)
[2017-03-15 06:37] LABS: FERRITIN 769.7 ng/mL (26-388)
[2017-03-15 07:38] VITALS: BP 134/64
[2017-03-15] MEDS: LACTOBACILLUS CHEW TABLET PO SCH ×3 (08:53→20:32)
[2017-03-15] MEDS: CHOLESTYRAMINE LIGHT 4GM PACKET PO SCH ×2 (10:18→22:48)
[2017-03-15 16:05] VITALS: BP 124/63
[2017-03-15 17:15] VITALS: BP 132/62
[2017-03-15 19:33] VITALS: BP 120/61
[2017-03-15] MEDS: MICAFUNGIN 100 MG in SODIUM CHLORIDE 0.9% 100 ML IV SCH (20:32)
[2017-03-15] MEDS: GABAPENTIN 300 MG CAPSULE PO SCH (20:32)
[2017-03-16 00:34] VITALS: BP 139/69
[2017-03-16] MEDS: PIPERACILLIN/TAZO 2.25 GM in SODIUM CHLORIDE 0.9% 50 ML IV SCH ×4 (04:07→22:09)
[2017-03-16] MEDS: OXYcodone 5 MG/5 ML ORAL.SOL UDC PO PRN ×2 (04:07→11:06)
[2017-03-16] MEDS: HEPARIN 5,000 UNITS/ML, 1ML SQ SCH ×3 (05:14→22:09)
[2017-03-16] MEDS: METOPROLOL TARTRATE 25 MG TABLET PO SCH ×2 (05:14→17:37)
[2017-03-16 05:53] LABS: BLOOD UREA NITROGEN 30 mg/dL (7-18)
[2017-03-16 06:13] LABS: HEMOGLOBIN 7.5 g/dL (13.7-18.0); WHITE BLOOD COUNT 10.5 x10^3/uL (3.4-10)
[2017-03-16 06:15] LABS: HEMATOCRIT 21.7 % (39.2-51.8)
[2017-03-16 07:35] VITALS: BP 125/64
[2017-03-16] MEDS: LACTOBACILLUS CHEW TABLET PO SCH ×3 (08:12→20:40)
[2017-03-16] MEDS: CHOLESTYRAMINE LIGHT 4GM PACKET PO SCH ×2 (09:00→20:39)
[2017-03-16 13:28] VITALS: BP 149/71
[2017-03-16 17:37] VITALS: BP 137/69
[2017-03-16 19:19] VITALS: BP 161/82
[2017-03-16] MEDS: MICAFUNGIN 100 MG in SODIUM CHLORIDE 0.9% 100 ML IV SCH (20:08)
[2017-03-16] MEDS: GABAPENTIN 300 MG CAPSULE PO SCH (20:40)
[2017-03-17] VITALS (7 sets, daily range): BP systolic 141–157; BP diastolic 65–78
[2017-03-17] MEDS: PIPERACILLIN/TAZO 2.25 GM in SODIUM CHLORIDE 0.9% 50 ML IV SCH ×4 (03:50→22:03)
[2017-03-17 05:32] LABS: WHITE BLOOD COUNT 9.7 x10^3/uL (3.4-10)
[2017-03-17 05:33] LABS: HEMATOCRIT 20.6 % (39.2-51.8); HEMOGLOBIN 6.6 g/dL (13.7-18.0)
[2017-03-17] MEDS: HEPARIN 5,000 UNITS/ML, 1ML SQ SCH (05:44)
[2017-03-17] MEDS: METOPROLOL TARTRATE 25 MG TABLET PO SCH ×2 (05:49→18:26)
[2017-03-17 05:50] LABS: BLOOD UREA NITROGEN 29 mg/dL (7-18)
[2017-03-17] MEDS: LACTOBACILLUS CHEW TABLET PO SCH ×3 (09:35→20:40)
[2017-03-17] MEDS: CHOLESTYRAMINE LIGHT 4GM PACKET PO SCH ×2 (09:35→20:40)
[2017-03-17] MEDS: OXYcodone 5 MG/5 ML ORAL.SOL UDC PO PRN ×2 (10:33→16:00)
[2017-03-17] MEDS: MICAFUNGIN 100 MG in SODIUM CHLORIDE 0.9% 100 ML IV SCH (19:55)
[2017-03-17] MEDS: GABAPENTIN 300 MG CAPSULE PO SCH (20:40)
[2017-03-18] VITALS (8 sets, daily range): BP systolic 124–167; BP diastolic 65–92
[2017-03-18] MEDS: PIPERACILLIN/TAZO 2.25 GM in SODIUM CHLORIDE 0.9% 50 ML IV SCH ×3 (04:03→16:37)
[2017-03-18 05:36] LABS: HEMATOCRIT 23.7 % (39.2-51.8); HEMOGLOBIN 7.9 g/dL (13.7-18.0); WHITE BLOOD COUNT 10.1 x10^3/uL (3.4-10)
[2017-03-18] MEDS: METOPROLOL TARTRATE 25 MG TABLET PO SCH ×2 (05:39→17:34)
[2017-03-18 05:49] LABS: BLOOD UREA NITROGEN 27 mg/dL (7-18)
[2017-03-18] MEDS: CHOLESTYRAMINE LIGHT 4GM PACKET PO SCH ×2 (08:09→22:09)
[2017-03-18] MEDS: LACTOBACILLUS CHEW TABLET PO SCH ×3 (08:09→22:09)
[2017-03-18] MEDS: OXYcodone 5 MG/5 ML ORAL.SOL UDC PO PRN (12:30)
[2017-03-18 14:40] LABS: HEMOGLOBIN 7.4 g/dL (13.7-18.0)
[2017-03-18 14:43] LABS: HEMATOCRIT 22.5 % (39.2-51.8)
[2017-03-18] MEDS ORDERED: GLUCAGON 1 MG IM PRN (15:00)
[2017-03-18] MEDS: MICAFUNGIN 100 MG in SODIUM CHLORIDE 0.9% 100 ML IV SCH (19:53)
[2017-03-18] MEDS: GABAPENTIN 300 MG CAPSULE PO SCH (22:09)
[2017-03-18] MEDS: PIPERACILLIN/TAZO/PMX 2.25GM 50 ML IVPB SCH (22:09)
[2017-03-19 01:10] VITALS: BP 154/83
[2017-03-19] MEDS: PIPERACILLIN/TAZO/PMX 2.25GM 50 ML IVPB SCH ×4 (03:24→23:13)
[2017-03-19 05:27] VITALS: BP 151/84
[2017-03-19] MEDS: OXYcodone 5 MG/5 ML ORAL.SOL UDC PO PRN ×2 (05:27→19:34)
[2017-03-19] MEDS: METOPROLOL TARTRATE 25 MG TABLET PO SCH ×2 (05:27→16:40)
[2017-03-19 07:15] LABS: HEMATOCRIT 24.8 % (39.2-51.8); HEMOGLOBIN 8.1 g/dL (13.7-18.0); WHITE BLOOD COUNT 10.4 x10^3/uL (3.4-10)
[2017-03-19 07:31] VITALS: BP 147/87
[2017-03-19 07:31] LABS: ASPARTATE AMINO TRANSFERASE 18 U/L (15-37); BLOOD UREA NITROGEN 23 mg/dL (7-18)
[2017-03-19] MEDS: CHOLESTYRAMINE LIGHT 4GM PACKET PO SCH ×2 (08:59→20:37)
[2017-03-19] MEDS: LACTOBACILLUS CHEW TABLET PO SCH ×3 (08:59→20:37)
[2017-03-19] MEDS ORDERED: FENTANYL PF 100 MCG/2ML ONE ×2 (12:56)
[2017-03-19] MEDS ORDERED: MINERAL OIL 10 ML VIAL MC ONE ×2 (13:14→14:00)
[2017-03-19] MEDS ORDERED: EPINEPHRINE 1 MG/ML, 1ML ONE (13:15)
[2017-03-19] MEDS ORDERED: LIDOCAINE/PF 1%, 30ML ONE (13:15)
[2017-03-19] MEDS ORDERED: THROMBIN 20,000 UNIT VIAL TP ONE (13:15)
[2017-03-19] MEDS ORDERED: MIDAZOLAM 1 MG/ML, 2ML ONE (13:20)
[2017-03-19] MEDS ORDERED: HYDROmorphone 1 MG/ML, 1ML IV PRN (13:30)
[2017-03-19] MEDS ORDERED: OXYcodone 5 MG/5 ML ORAL.SOL UDC PO PRN (13:30)
[2017-03-19] MEDS ORDERED: FENTANYL PF 100 MCG/2ML IV PRN (13:30)
[2017-03-19] MEDS ORDERED: ONDANSETRON 2MG/ML, 2ML IVPush PRN (13:30)
[2017-03-19] MEDS ORDERED: ALBUTEROL SULFATE 2.5 MG/3 ML NPPB PRN (13:30)
[2017-03-19] MEDS ORDERED: PROMETHAZINE 25 MG/ML, 1ML IV PRN (13:30)
[2017-03-19] MEDS ORDERED: MEPERIDINE/PF 25MG/0.5ML IVPush PRN (13:30)
[2017-03-19] MEDS ORDERED: hydrALAzine 20 MG/ML, 1ML IV PRN (13:30)
[2017-03-19] MEDS ORDERED: LABETALOL 5MG/ML, 20ML IV PRN (13:30)
[2017-03-19] MEDS ORDERED: LIDOCAINE 1%-EPI 1:100K, 30ML INFIL ONE (14:00)
[2017-03-19 16:30] VITALS: BP 157/92
[2017-03-19 19:15] VITALS: BP 135/75
[2017-03-19] MEDS: MICAFUNGIN 100 MG in SODIUM CHLORIDE 0.9% 100 ML IV SCH (19:35)
[2017-03-19] MEDS: GABAPENTIN 300 MG CAPSULE PO SCH (20:37)
[2017-03-19] MEDS: ALBUTEROL/IPRATROPIUM 2.5MG/0.5MG, 3 ML NPPB PRN (21:14)
[2017-03-19 23:25] VITALS: BP 155/86
[2017-03-20] MEDS: OXYcodone 5 MG/5 ML ORAL.SOL UDC PO PRN (01:26)
[2017-03-20 02:40] VITALS: BP 166/91
[2017-03-20] MEDS: METOPROLOL TARTRATE 25 MG TABLET PO SCH ×2 (04:32→17:35)
[2017-03-20] MEDS: PIPERACILLIN/TAZO/PMX 2.25GM 50 ML IVPB SCH ×4 (04:33→21:37)
[2017-03-20] MEDS: HEPARIN 5,000 UNITS/ML, 1ML SQ SCH ×3 (06:05→21:37)
[2017-03-20 06:10] LABS: HEMATOCRIT 24.7 % (39.2-51.8); HEMOGLOBIN 8.2 g/dL (13.7-18.0); WHITE BLOOD COUNT 9.8 x10^3/uL (3.4-10)
[2017-03-20 06:23] LABS: BLOOD UREA NITROGEN 22 mg/dL (7-18)
[2017-03-20 06:28] LABS: ASPARTATE AMINO TRANSFERASE 20 U/L (15-37)
[2017-03-20 08:04] VITALS: BP 140/85
[2017-03-20] MEDS: LACTOBACILLUS CHEW TABLET PO SCH ×4 (10:11→21:37)
[2017-03-20] MEDS: CHOLESTYRAMINE LIGHT 4GM PACKET PO SCH ×3 (10:11→21:36)
[2017-03-20] MEDS ORDERED: FUROSEMIDE 20 MG/2 ML ONE (12:44)
[2017-03-20] MEDS ORDERED: FUROSEMIDE 40 MG/4 ML IV ONE (13:00)
[2017-03-20 13:13] VITALS: BP 157/84
[2017-03-20 19:10] VITALS: BP 144/85
[2017-03-20] MEDS: MICAFUNGIN 100 MG in SODIUM CHLORIDE 0.9% 100 ML IV SCH (19:26)
[2017-03-20] MEDS: GABAPENTIN 300 MG CAPSULE PO SCH ×2 (21:00→21:36)
[2017-03-20] MEDS ORDERED: FUROSEMIDE 20 MG/2 ML IV ONE (23:00)
[2017-03-20 23:21] LABS: ABG COLLECTION SITE LEFT BRACHIAL
[2017-03-21] MEDS ORDERED: FUROSEMIDE 20 MG/2 ML IV ONE
[2017-03-21 02:16] LABS: ABG COLLECTION SITE LEFT BRACHIAL
[2017-03-21] MEDS: PIPERACILLIN/TAZO/PMX 2.25GM 50 ML IVPB SCH ×4 (04:03→22:04)
[2017-03-21 05:11] VITALS: BP 158/75
[2017-03-21 05:33] LABS: BLOOD UREA NITROGEN 22 mg/dL (7-18); HEMATOCRIT 24.9 % (39.2-51.8); HEMOGLOBIN 8.3 g/dL (13.7-18.0); WHITE BLOOD COUNT 8.3 x10^3/uL (3.4-10)
[2017-03-21] MEDS: METOPROLOL TARTRATE 25 MG TABLET PO SCH ×2 (06:08→17:31)
[2017-03-21] MEDS: HEPARIN 5,000 UNITS/ML, 1ML SQ SCH ×3 (06:08→22:03)
[2017-03-21] MEDS ORDERED: FUROSEMIDE 40 MG/4 ML IV SCH (09:00)
[2017-03-21] MEDS: ERGOCALCIFEROL 50,000 UNIT CAPSULE PO SCH (09:09)
[2017-03-21] MEDS: LACTOBACILLUS CHEW TABLET PO SCH ×3 (09:10→20:52)
[2017-03-21] MEDS: CHOLESTYRAMINE LIGHT 4GM PACKET PO SCH ×2 (10:23→22:04)
[2017-03-21] MEDS: FUROSEMIDE 40 MG/4 ML IV SCH (16:21)
[2017-03-21] MEDS: OXYcodone 5 MG/5 ML ORAL.SOL UDC PO PRN (19:39)
[2017-03-21] MEDS: MICAFUNGIN 100 MG in SODIUM CHLORIDE 0.9% 100 ML IV SCH (20:06)
[2017-03-21] MEDS: GABAPENTIN 300 MG CAPSULE PO SCH (20:52)
[2017-03-22] MEDS: PIPERACILLIN/TAZO/PMX 2.25GM 50 ML IVPB SCH ×4 (04:37→23:02)
[2017-03-22 05:00] VITALS: BP 148/80
[2017-03-22 05:14] LABS: HEMATOCRIT 24.8 % (39.2-51.8); HEMOGLOBIN 8.2 g/dL (13.7-18.0); WHITE BLOOD COUNT 8.2 x10^3/uL (3.4-10)
[2017-03-22 05:25] LABS: BLOOD UREA NITROGEN 22 mg/dL (7-18)
[2017-03-22 05:30] LABS: ASPARTATE AMINO TRANSFERASE 18 U/L (15-37)
[2017-03-22] MEDS: HEPARIN 5,000 UNITS/ML, 1ML SQ SCH ×3 (06:39→21:16)
[2017-03-22] MEDS: METOPROLOL TARTRATE 25 MG TABLET PO SCH ×2 (06:39→17:24)
[2017-03-22 09:37] LABS: ABG COLLECTION SITE RIGHT BRACHIAL
[2017-03-22] MEDS: LACTOBACILLUS CHEW TABLET PO SCH ×3 (10:04→21:15)
[2017-03-22] MEDS: FUROSEMIDE 40 MG/4 ML IV SCH ×2 (10:04→17:24)
[2017-03-22] MEDS: CHOLESTYRAMINE LIGHT 4GM PACKET PO SCH (10:05)
[2017-03-22] MEDS: OXYcodone 5 MG/5 ML ORAL.SOL UDC PO PRN (12:28)
[2017-03-22] MEDS: DIPHENOXYLATE/ATROPINE TABLET PO PRN (12:28)
[2017-03-22] MEDS: MICAFUNGIN 100 MG in SODIUM CHLORIDE 0.9% 100 ML IV SCH (19:57)
[2017-03-22] MEDS ORDERED: MAGNESIUM SULFATE PMX 2GM/50ML 50 ML IV ONE (21:00)
[2017-03-22] MEDS: GABAPENTIN 300 MG CAPSULE PO SCH (21:15)
[2017-03-23] MEDS: OXYcodone 5 MG/5 ML ORAL.SOL UDC PO PRN ×2 (01:11→16:49)
[2017-03-23] MEDS: PIPERACILLIN/TAZO/PMX 2.25GM 50 ML IVPB SCH ×4 (04:27→21:31)
[2017-03-23 04:41] LABS: ABG COLLECTION SITE RIGHT BRACHIAL
[2017-03-23 05:07] LABS: HEMATOCRIT 24.5 % (39.2-51.8); HEMOGLOBIN 8.2 g/dL (13.7-18.0); WHITE BLOOD COUNT 7.5 x10^3/uL (3.4-10)
[2017-03-23 05:20] LABS: BLOOD UREA NITROGEN 21 mg/dL (7-18)
[2017-03-23] MEDS: METOPROLOL TARTRATE 25 MG TABLET PO SCH ×2 (06:23→17:23)
[2017-03-23] MEDS: HEPARIN 5,000 UNITS/ML, 1ML SQ SCH ×3 (06:24→21:33)
[2017-03-23 06:35] VITALS: BP 155/70
[2017-03-23] MEDS: LACTOBACILLUS CHEW TABLET PO SCH ×3 (10:21→21:30)
[2017-03-23] MEDS: FUROSEMIDE 40 MG/4 ML IV SCH ×2 (10:23→16:49)
[2017-03-23] MEDS ORDERED: morphine SULFATE 10 MG/ML, 1ML ONE (10:28)
[2017-03-23] MEDS ORDERED: MORPHINE SULFATE 4 MG/ML, 1ML IVPush ONE (11:00)
[2017-03-23] MEDS ORDERED: FENTANYL PF 100 MCG/2ML ONE (11:06)
[2017-03-23] MEDS ORDERED: FENTANYL PF 100 MCG/2ML IV ONE (11:30)
[2017-03-23] MEDS: GABAPENTIN 300 MG CAPSULE PO SCH (21:30)
[2017-03-24] MEDS: PIPERACILLIN/TAZO/PMX 2.25GM 50 ML IVPB SCH (03:25)
[2017-03-24 04:04] LABS: HEMATOCRIT 25.4 % (39.2-51.8); HEMOGLOBIN 8.4 g/dL (13.7-18.0); WHITE BLOOD COUNT 8.4 x10^3/uL (3.4-10)
[2017-03-24 04:11] LABS: ASPARTATE AMINO TRANSFERASE 23 U/L (15-37); BLOOD UREA NITROGEN 22 mg/dL (7-18)
[2017-03-24] MEDS: METOPROLOL TARTRATE 25 MG TABLET PO SCH ×2 (05:04→18:00)
[2017-03-24] MEDS: HEPARIN 5,000 UNITS/ML, 1ML SQ SCH ×3 (05:04→21:40)
[2017-03-24] MEDS: FUROSEMIDE 40 MG/4 ML IV SCH ×2 (07:22→17:59)
[2017-03-24] MEDS: LACTOBACILLUS CHEW TABLET PO SCH ×3 (08:50→20:35)
[2017-03-24] MEDS: PIPERACILLIN/TAZO/PMX 3.375GM 50 ML IVPB SCH ×3 (10:09→21:40)
[2017-03-24] MEDS: OXYcodone 5 MG/5 ML ORAL.SOL UDC PO PRN (15:11)
[2017-03-24] MEDS: DIPHENOXYLATE/ATROPINE TABLET PO PRN (15:11)
[2017-03-24] MEDS: GABAPENTIN 300 MG CAPSULE PO SCH (20:35)
[2017-03-25] MEDS: OXYcodone 5 MG/5 ML ORAL.SOL UDC PO PRN ×4 (01:48→20:14)
[2017-03-25] MEDS: PIPERACILLIN/TAZO/PMX 3.375GM 50 ML IVPB SCH ×4 (03:49→21:49)
[2017-03-25 04:00] VITALS: BP 141/61
[2017-03-25 04:28] LABS: HEMATOCRIT 25.9 % (39.2-51.8); HEMOGLOBIN 8.6 g/dL (13.7-18.0)
[2017-03-25 04:42] LABS: BLOOD UREA NITROGEN 23 mg/dL (7-18)
[2017-03-25] MEDS: METOPROLOL TARTRATE 25 MG TABLET PO SCH ×2 (06:28→17:00)
[2017-03-25] MEDS: HEPARIN 5,000 UNITS/ML, 1ML SQ SCH ×3 (06:28→21:49)
[2017-03-25] MEDS ORDERED: POTASSIUM CHLORIDE 20 MEQ TAB.ER.PRT PO ONE (07:00)
[2017-03-25] MEDS: FUROSEMIDE 40 MG/4 ML IV SCH ×2 (07:05→16:59)
[2017-03-25] MEDS: DIPHENOXYLATE/ATROPINE TABLET PO PRN (08:51)
[2017-03-25] MEDS: LACTOBACILLUS CHEW TABLET PO SCH ×3 (08:51→20:14)
[2017-03-25 17:03] VITALS: BP 157/73
[2017-03-25 19:06] VITALS: BP 151/77
[2017-03-25] MEDS ORDERED: DEXTROSE 50%, 50ML SYRINGE IVPush PRN (20:00)
[2017-03-25] MEDS ORDERED: GLUCAGON 1 MG IM PRN (20:00)
[2017-03-25] MEDS: GABAPENTIN 300 MG CAPSULE PO SCH (20:14)
[2017-03-26] MEDS: OXYcodone 5 MG/5 ML ORAL.SOL UDC PO PRN ×5 (00:25→19:58)
[2017-03-26 02:20] VITALS: BP 135/68
[2017-03-26] MEDS: PIPERACILLIN/TAZO/PMX 3.375GM 50 ML IVPB SCH ×4 (04:01→22:20)
[2017-03-26] MEDS: METOPROLOL TARTRATE 25 MG TABLET PO SCH ×2 (05:37→16:55)
[2017-03-26] MEDS: HEPARIN 5,000 UNITS/ML, 1ML SQ SCH ×3 (05:38→22:20)
[2017-03-26 06:36] LABS: ASPARTATE AMINO TRANSFERASE 22 U/L (15-37); BLOOD UREA NITROGEN 24 mg/dL (7-18)
[2017-03-26 08:20] VITALS: BP 138/76
[2017-03-26] MEDS: FUROSEMIDE 40 MG/4 ML IV SCH ×2 (08:32→16:55)
[2017-03-26] MEDS: LACTOBACILLUS CHEW TABLET PO SCH ×3 (08:33→19:58)
[2017-03-26 14:50] VITALS: BP 139/76
[2017-03-26 18:47] VITALS: BP 143/80
[2017-03-26] MEDS: GABAPENTIN 300 MG CAPSULE PO SCH (19:58)
[2017-03-27 04:18] VITALS: BP 148/76
[2017-03-27] MEDS: PIPERACILLIN/TAZO/PMX 3.375GM 50 ML IVPB SCH ×4 (04:18→21:53)
[2017-03-27] MEDS: OXYcodone 5 MG/5 ML ORAL.SOL UDC PO PRN ×4 (04:42→20:16)
[2017-03-27] MEDS: METOPROLOL TARTRATE 25 MG TABLET PO SCH ×2 (05:54→17:38)
[2017-03-27] MEDS: HEPARIN 5,000 UNITS/ML, 1ML SQ SCH ×3 (05:54→21:54)
[2017-03-27 07:07] VITALS: BP 136/76
[2017-03-27] MEDS: FUROSEMIDE 40 MG/4 ML IV SCH ×2 (07:30→16:45)
[2017-03-27] MEDS: LACTOBACILLUS CHEW TABLET PO SCH ×3 (08:43→20:11)
[2017-03-27 12:53] VITALS: BP 152/85
[2017-03-27 17:36] VITALS: BP 156/77
[2017-03-27] MEDS: DIPHENOXYLATE/ATROPINE TABLET PO PRN (20:11)
[2017-03-27] MEDS: GABAPENTIN 300 MG CAPSULE PO SCH (20:11)
[2017-03-27 21:06] VITALS: BP 146/64
[2017-03-28] MEDS: PIPERACILLIN/TAZO/PMX 3.375GM 50 ML IVPB SCH ×4 (04:00→22:02)
[2017-03-28] MEDS: METOPROLOL TARTRATE 25 MG TABLET PO SCH ×2 (06:00→17:48)
[2017-03-28] MEDS: HEPARIN 5,000 UNITS/ML, 1ML SQ SCH ×3 (06:00→20:45)
[2017-03-28] MEDS: FUROSEMIDE 40 MG/4 ML IV SCH ×2 (07:30→16:53)
[2017-03-28 07:45] VITALS: BP 139/78
[2017-03-28] MEDS: LACTOBACILLUS CHEW TABLET PO SCH ×3 (09:00→20:45)
[2017-03-28] MEDS: ERGOCALCIFEROL 50,000 UNIT CAPSULE PO SCH (10:07)
[2017-03-28] MEDS: FLUTICASONE NASAL SPRAY 16GM NAS SCH (10:07)
[2017-03-28] MEDS: OXYcodone 5 MG/5 ML ORAL.SOL UDC PO PRN ×3 (11:15→19:53)
[2017-03-28 14:22] VITALS: BP 149/81
[2017-03-28 20:19] VITALS: BP 144/74
[2017-03-28] MEDS: GABAPENTIN 300 MG CAPSULE PO SCH (20:45)
[2017-03-29 02:50] VITALS: BP 146/75
[2017-03-29] MEDS: ALBUTEROL/IPRATROPIUM 2.5MG/0.5MG, 3 ML NPPB PRN (03:21)
[2017-03-29] MEDS: PIPERACILLIN/TAZO/PMX 3.375GM 50 ML IVPB SCH ×4 (03:55→22:30)
[2017-03-29] MEDS: METOPROLOL TARTRATE 25 MG TABLET PO SCH ×2 (05:09→18:11)
[2017-03-29] MEDS: HEPARIN 5,000 UNITS/ML, 1ML SQ SCH ×3 (05:20→22:31)
[2017-03-29 05:56] LABS: BLOOD UREA NITROGEN 26 mg/dL (7-18)
[2017-03-29] MEDS: FUROSEMIDE 40 MG/4 ML IV SCH ×2 (08:05→18:05)
[2017-03-29] MEDS: FLUTICASONE NASAL SPRAY 16GM NAS SCH (08:05)
[2017-03-29] MEDS: LACTOBACILLUS CHEW TABLET PO SCH ×3 (08:05→21:19)
[2017-03-29] MEDS: OXYcodone 5 MG/5 ML ORAL.SOL UDC PO PRN ×2 (08:57→18:05)
[2017-03-29 09:00] VITALS: BP 164/82
[2017-03-29] MEDS ORDERED: POTASSIUM CHLORIDE 20 MEQ TAB.ER.PRT PO ONE (15:30)
[2017-03-29 16:32] VITALS: BP 148/77
[2017-03-29 20:50] VITALS: BP 125/65
[2017-03-29] MEDS: GABAPENTIN 300 MG CAPSULE PO SCH (21:19)
[2017-03-30 02:20] VITALS: BP 146/74
[2017-03-30] MEDS: PIPERACILLIN/TAZO/PMX 3.375GM 50 ML IVPB SCH ×4 (04:20→22:09)
[2017-03-30 06:12] VITALS: BP 146/74
[2017-03-30] MEDS: HEPARIN 5,000 UNITS/ML, 1ML SQ SCH ×3 (06:13→22:09)
[2017-03-30] MEDS: METOPROLOL TARTRATE 25 MG TABLET PO SCH ×2 (06:13→17:35)
[2017-03-30] MEDS: DIPHENOXYLATE/ATROPINE TABLET PO PRN ×3 (06:19→14:21)
[2017-03-30] MEDS: FUROSEMIDE 40 MG/4 ML IV SCH ×2 (07:40→17:36)
[2017-03-30] MEDS: LACTOBACILLUS CHEW TABLET PO SCH ×3 (07:40→20:38)
[2017-03-30] MEDS: FLUTICASONE NASAL SPRAY 16GM NAS SCH (07:41)
[2017-03-30 07:50] VITALS: BP 139/75
[2017-03-30 13:21] VITALS: BP 138/73
[2017-03-30] MEDS: OXYcodone 5 MG/5 ML ORAL.SOL UDC PO PRN (18:04)
[2017-03-30 18:28] VITALS: BP 152/71
[2017-03-30] MEDS: GABAPENTIN 300 MG CAPSULE PO SCH (20:38)
[2017-03-31 00:54] VITALS: BP 143/83
[2017-03-31] MEDS: PIPERACILLIN/TAZO/PMX 3.375GM 50 ML IVPB SCH ×4 (04:00→21:58)
[2017-03-31] MEDS: METOPROLOL TARTRATE 25 MG TABLET PO SCH ×2 (05:47→17:17)
[2017-03-31] MEDS: HEPARIN 5,000 UNITS/ML, 1ML SQ SCH ×3 (05:47→21:58)
[2017-03-31 05:48] LABS: HEMATOCRIT 28.2 % (39.2-51.8); HEMOGLOBIN 9.4 g/dL (13.7-18.0); WHITE BLOOD COUNT 10.9 x10^3/uL (3.4-10)
[2017-03-31 05:58] LABS: ASPARTATE AMINO TRANSFERASE 20 U/L (15-37); BLOOD UREA NITROGEN 24 mg/dL (7-18)
[2017-03-31 07:27] VITALS: BP 148/78
[2017-03-31] MEDS: DIPHENOXYLATE/ATROPINE TABLET PO PRN ×2 (07:46→17:17)
[2017-03-31] MEDS: FLUTICASONE NASAL SPRAY 16GM NAS SCH (07:47)
[2017-03-31] MEDS: LACTOBACILLUS CHEW TABLET PO SCH ×3 (07:47→20:45)
[2017-03-31] MEDS: FUROSEMIDE 40 MG/4 ML IV SCH ×2 (07:47→17:05)
[2017-03-31] MEDS: OXYcodone 5 MG/5 ML ORAL.SOL UDC PO PRN ×2 (07:59→20:44)
[2017-03-31 15:25] VITALS: BP 151/73
[2017-03-31 18:21] VITALS: BP 152/72
[2017-03-31] MEDS: GABAPENTIN 300 MG CAPSULE PO SCH (20:44)
[2017-03-31] MEDS ORDERED: POTASSIUM CHLORIDE 20 MEQ TAB.ER.PRT PO ONE (22:00)
[2017-04-01] MEDS: PIPERACILLIN/TAZO/PMX 3.375GM 50 ML IVPB SCH ×4 (03:51→21:56)
[2017-04-01 05:18] VITALS: BP 146/78
[2017-04-01] MEDS: HEPARIN 5,000 UNITS/ML, 1ML SQ SCH ×4 (05:28→22:38)
[2017-04-01] MEDS: METOPROLOL TARTRATE 25 MG TABLET PO SCH ×2 (05:29→16:36)
[2017-04-01 05:31] LABS: HEMATOCRIT 28.4 % (39.2-51.8); HEMOGLOBIN 9.4 g/dL (13.7-18.0); WHITE BLOOD COUNT 10.5 x10^3/uL (3.4-10)
[2017-04-01 05:41] LABS: BLOOD UREA NITROGEN 24 mg/dL (7-18)
[2017-04-01 05:45] LABS: ASPARTATE AMINO TRANSFERASE 17 U/L (15-37)
[2017-04-01 06:54] VITALS: BP 146/73
[2017-04-01] MEDS: FLUTICASONE NASAL SPRAY 16GM NAS SCH (08:36)
[2017-04-01] MEDS: POTASSIUM CHLORIDE 20 MEQ TAB.ER.PRT PO SCH (08:36)
[2017-04-01] MEDS: FUROSEMIDE 40 MG/4 ML IV SCH (08:37)
[2017-04-01] MEDS: LACTOBACILLUS CHEW TABLET PO SCH ×3 (08:37→20:18)
[2017-04-01 13:53] VITALS: BP 147/70
[2017-04-01] MEDS ORDERED: GLUCAGON 1 MG IM PRN (14:30)
[2017-04-01 19:32] VITALS: BP 151/77
[2017-04-01] MEDS: GABAPENTIN 300 MG CAPSULE PO SCH (20:18)
[2017-04-01] MEDS: OXYcodone 5 MG/5 ML ORAL.SOL UDC PO PRN (22:12)
[2017-04-02 03:01] VITALS: BP 139/74
[2017-04-02] MEDS: PIPERACILLIN/TAZO/PMX 3.375GM 50 ML IVPB SCH ×4 (03:55→22:05)
[2017-04-02] MEDS: METOPROLOL TARTRATE 25 MG TABLET PO SCH ×2 (05:28→16:34)
[2017-04-02 06:30] VITALS: BP 151/77
[2017-04-02] MEDS ORDERED: BACITRACIN 50,000 UNIT ONE (06:52)
[2017-04-02] MEDS ORDERED: NEOSPORIN OINT, 15GM ONE (06:52)
[2017-04-02] MEDS ORDERED: FENTANYL PF 100 MCG/2ML ONE ×3 (07:23→07:24)
[2017-04-02] MEDS ORDERED: hydrALAzine 20 MG/ML, 1ML IV PRN (07:30)
[2017-04-02] MEDS ORDERED: FENTANYL PF 100 MCG/2ML IV PRN (07:30)
[2017-04-02] MEDS ORDERED: HYDROmorphone 1 MG/ML, 1ML IV PRN (07:30)
[2017-04-02] MEDS ORDERED: MEPERIDINE/PF 25MG/0.5ML IVPush PRN (07:30)
[2017-04-02] MEDS ORDERED: METOPROLOL 1 MG/ML, 5ML IV PRN (07:30)
[2017-04-02] MEDS ORDERED: PROMETHAZINE 25 MG/ML, 1ML IV PRN (07:30)
[2017-04-02] MEDS ORDERED: OXYcodone 5 MG/5 ML ORAL.SOL UDC PO PRN (07:30)
[2017-04-02] MEDS ORDERED: ACETAMINOPHEN 325 MG TABLET PO PRN (07:30)
[2017-04-02] MEDS ORDERED: ALBUTEROL SULFATE 2.5 MG/3 ML NPPB PRN (07:30)
[2017-04-02] MEDS ORDERED: MIDAZOLAM 1 MG/ML, 2ML IV PRN (07:30)
[2017-04-02] MEDS ORDERED: PROPOFOL 10 MG/ML, 50ML ONE (07:35)
[2017-04-02] MEDS ORDERED: PROPOFOL 10 MG/ML, 20ML ONE (07:35)
[2017-04-02] MEDS ORDERED: CEFAZOLIN 1,000 MG ONE (07:35)
[2017-04-02] MEDS ORDERED: METOPROLOL 1 MG/ML, 5ML ONE (08:34)
[2017-04-02] MEDS: FLUTICASONE NASAL SPRAY 16GM NAS SCH (09:35)
[2017-04-02] MEDS: LACTOBACILLUS CHEW TABLET PO SCH ×3 (09:36→20:30)
[2017-04-02] MEDS: FUROSEMIDE 40 MG/4 ML IV SCH (09:37)
[2017-04-02] MEDS: POTASSIUM CHLORIDE 20 MEQ TAB.ER.PRT PO SCH (09:37)
[2017-04-02 13:18] VITALS: BP 158/85
[2017-04-02] MEDS: HEPARIN 5,000 UNITS/ML, 1ML SQ SCH ×2 (14:25→22:06)
[2017-04-02 16:30] VITALS: BP 147/85
[2017-04-02] MEDS: OXYcodone 5 MG/5 ML ORAL.SOL UDC PO PRN (17:30)
[2017-04-02 19:28] VITALS: BP 131/87
[2017-04-02] MEDS: GABAPENTIN 300 MG CAPSULE PO SCH (20:30)
[2017-04-03 03:14] VITALS: BP 135/79
[2017-04-03] MEDS: PIPERACILLIN/TAZO/PMX 3.375GM 50 ML IVPB SCH ×4 (04:05→21:50)
[2017-04-03] MEDS: METOPROLOL TARTRATE 25 MG TABLET PO SCH ×2 (05:18→18:01)
[2017-04-03] MEDS: HEPARIN 5,000 UNITS/ML, 1ML SQ SCH ×3 (05:49→21:50)
[2017-04-03 05:52] LABS: BLOOD UREA NITROGEN 23 mg/dL (7-18)
[2017-04-03 07:21] VITALS: BP 162/83
[2017-04-03] MEDS: FUROSEMIDE 40 MG/4 ML IV SCH (07:46)
[2017-04-03] MEDS: LACTOBACILLUS CHEW TABLET PO SCH ×3 (07:46→20:14)
[2017-04-03] MEDS: POTASSIUM CHLORIDE 20 MEQ TAB.ER.PRT PO SCH ×2 (07:46→16:47)
[2017-04-03] MEDS: FLUTICASONE NASAL SPRAY 16GM NAS SCH (07:46)
[2017-04-03] MEDS: OXYcodone 5 MG/5 ML ORAL.SOL UDC PO PRN (13:34)
[2017-04-03 13:37] VITALS: BP 158/92
[2017-04-03] MEDS: DIPHENOXYLATE/ATROPINE TABLET PO PRN (15:12)
[2017-04-03 19:28] VITALS: BP 148/78
[2017-04-03] MEDS: GABAPENTIN 300 MG CAPSULE PO SCH (20:14)
[2017-04-04 02:20] VITALS: BP 135/76
[2017-04-04] MEDS: PIPERACILLIN/TAZO/PMX 3.375GM 50 ML IVPB SCH ×4 (03:59→23:12)
[2017-04-04] MEDS: HEPARIN 5,000 UNITS/ML, 1ML SQ SCH ×3 (06:00→21:00)
[2017-04-04] MEDS: METOPROLOL TARTRATE 25 MG TABLET PO SCH ×2 (06:00→18:29)
[2017-04-04 08:31] VITALS: BP 152/78
[2017-04-04] MEDS: FLUTICASONE NASAL SPRAY 16GM NAS SCH (10:19)
[2017-04-04] MEDS: LACTOBACILLUS CHEW TABLET PO SCH ×3 (10:19→21:01)
[2017-04-04] MEDS: FUROSEMIDE 40 MG/4 ML IV SCH (10:20)
[2017-04-04] MEDS: ERGOCALCIFEROL 50,000 UNIT CAPSULE PO SCH (10:20)
[2017-04-04 13:01] VITALS: BP 140/84
[2017-04-04] MEDS: OXYcodone 5 MG/5 ML ORAL.SOL UDC PO PRN (16:58)
[2017-04-04 19:20] VITALS: BP 142/79
[2017-04-04] MEDS ORDERED: POTASSIUM CHLORIDE 20 MEQ TAB.ER.PRT PO ONE (19:30)
[2017-04-04] MEDS: GABAPENTIN 300 MG CAPSULE PO SCH (21:00)
[2017-04-05 02:24] VITALS: BP 144/86
[2017-04-05] MEDS: HEPARIN 5,000 UNITS/ML, 1ML SQ SCH ×3 (05:01→20:45)
[2017-04-05] MEDS: METOPROLOL TARTRATE 25 MG TABLET PO SCH ×2 (05:01→18:54)
[2017-04-05] MEDS: PIPERACILLIN/TAZO/PMX 3.375GM 50 ML IVPB SCH ×4 (05:02→22:23)
[2017-04-05 06:02] LABS: BLOOD UREA NITROGEN 26 mg/dL (7-18)
[2017-04-05] MEDS: LACTOBACILLUS CHEW TABLET PO SCH ×3 (07:40→20:45)
[2017-04-05] MEDS: FUROSEMIDE 40 MG/4 ML IV SCH (07:40)
[2017-04-05] MEDS: FLUTICASONE NASAL SPRAY 16GM NAS SCH (07:40)
[2017-04-05 07:57] VITALS: BP 144/84
[2017-04-05] MEDS ORDERED: POTASSIUM CHLORIDE 20 MEQ TAB.ER.PRT PO SCH (08:00)
[2017-04-05] MEDS: OXYcodone 5 MG/5 ML ORAL.SOL UDC PO PRN ×3 (11:16→22:23)
[2017-04-05 13:55] VITALS: BP 153/93
[2017-04-05] MEDS: LOSARTAN 25MG TABLET PO SCH (14:04)
[2017-04-05 20:05] VITALS: BP 147/82
[2017-04-05] MEDS: GABAPENTIN 300 MG CAPSULE PO SCH (20:45)
[2017-04-06 02:10] VITALS: BP 143/74
[2017-04-06] MEDS: PIPERACILLIN/TAZO/PMX 3.375GM 50 ML IVPB SCH ×4 (04:38→22:58)
[2017-04-06] MEDS: METOPROLOL TARTRATE 25 MG TABLET PO SCH ×2 (06:01→18:28)
[2017-04-06] MEDS: HEPARIN 5,000 UNITS/ML, 1ML SQ SCH ×3 (06:02→20:14)
[2017-04-06] MEDS: LOSARTAN 25MG TABLET PO SCH (08:46)
[2017-04-06] MEDS: POTASSIUM CHLORIDE 20 MEQ TAB.ER.PRT PO SCH (08:46)
[2017-04-06] MEDS: FLUTICASONE NASAL SPRAY 16GM NAS SCH (08:46)
[2017-04-06] MEDS: LACTOBACILLUS CHEW TABLET PO SCH ×3 (08:46→20:14)
[2017-04-06] MEDS: FUROSEMIDE 40 MG/4 ML IV SCH (08:46)
[2017-04-06 09:55] VITALS: BP 137/85
[2017-04-06] MEDS: OXYcodone 5 MG/5 ML ORAL.SOL UDC PO PRN ×3 (10:06→19:47)
[2017-04-06 14:02] VITALS: BP 152/82
[2017-04-06] MEDS: CETIRIZINE 10 MG TABLET PO SCH (18:28)
[2017-04-06] MEDS ORDERED: CALAMINE LOTION 180ML TP PRN (18:30)
[2017-04-06] MEDS: GABAPENTIN 300 MG CAPSULE PO SCH (20:14)
[2017-04-06 21:30] VITALS: BP 148/86
[2017-04-07 02:32] VITALS: BP 149/90
[2017-04-07] MEDS: METOPROLOL TARTRATE 25 MG TABLET PO SCH ×2 (05:07→18:01)
[2017-04-07] MEDS: HEPARIN 5,000 UNITS/ML, 1ML SQ SCH ×3 (05:08→20:54)
[2017-04-07] MEDS: PIPERACILLIN/TAZO/PMX 3.375GM 50 ML IVPB SCH ×4 (05:08→22:25)
[2017-04-07 05:57] LABS: BLOOD UREA NITROGEN 30 mg/dL (7-18)
[2017-04-07 06:00] LABS: HEMATOCRIT 28.8 % (39.2-51.8); WHITE BLOOD COUNT 7.2 x10^3/uL (3.4-10)
[2017-04-07] MEDS: POTASSIUM CHLORIDE 20 MEQ TAB.ER.PRT PO SCH (08:27)
[2017-04-07] MEDS: LACTOBACILLUS CHEW TABLET PO SCH ×3 (08:28→20:49)
[2017-04-07] MEDS: FLUTICASONE NASAL SPRAY 16GM NAS SCH (08:28)
[2017-04-07] MEDS: LOSARTAN 25MG TABLET PO SCH (08:28)
[2017-04-07] MEDS: FUROSEMIDE 40 MG/4 ML IV SCH (08:28)
[2017-04-07 08:30] VITALS: BP 160/88
[2017-04-07] MEDS: CETIRIZINE 10 MG TABLET PO SCH (09:25)
[2017-04-07] MEDS: OXYcodone 5 MG/5 ML ORAL.SOL UDC PO PRN (10:49)
[2017-04-07 12:40] VITALS: BP 168/86
[2017-04-07] MEDS: OXYcodone IR 5MG TABLET PO PRN ×2 (15:15→19:22)
[2017-04-07 19:36] VITALS: BP 134/78
[2017-04-07] MEDS: GABAPENTIN 300 MG CAPSULE PO SCH (20:49)
[2017-04-08 02:44] VITALS: BP 163/80
[2017-04-08] MEDS: PIPERACILLIN/TAZO/PMX 3.375GM 50 ML IVPB SCH ×4 (05:09→22:54)
[2017-04-08] MEDS: OXYcodone IR 5MG TABLET PO PRN ×4 (06:14→19:44)
[2017-04-08] MEDS: METOPROLOL TARTRATE 25 MG TABLET PO SCH ×2 (06:14→17:39)
[2017-04-08] MEDS: HEPARIN 5,000 UNITS/ML, 1ML SQ SCH ×3 (06:15→22:54)
[2017-04-08] MEDS: CETIRIZINE 10 MG TABLET PO SCH (07:51)
[2017-04-08] MEDS: LACTOBACILLUS CHEW TABLET PO SCH ×3 (07:51→19:44)
[2017-04-08] MEDS: FLUTICASONE NASAL SPRAY 16GM NAS SCH (07:51)
[2017-04-08] MEDS: LOSARTAN 25MG TABLET PO SCH (07:51)
[2017-04-08] MEDS: FUROSEMIDE 20 MG TABLET PO SCH (07:51)
[2017-04-08] MEDS: POTASSIUM CHLORIDE 20 MEQ TAB.ER.PRT PO SCH (07:51)
[2017-04-08 08:52] VITALS: BP 144/82
[2017-04-08 14:24] VITALS: BP 152/85
[2017-04-08 18:25] VITALS: BP 156/81
[2017-04-08] MEDS: GABAPENTIN 300 MG CAPSULE PO SCH (19:44)
[2017-04-09 03:59] VITALS: BP 134/79
[2017-04-09] MEDS: PIPERACILLIN/TAZO/PMX 3.375GM 50 ML IVPB SCH (04:53)
[2017-04-09 05:37] LABS: BLOOD UREA NITROGEN 30 mg/dL (7-18)
[2017-04-09 05:46] LABS: ASPARTATE AMINO TRANSFERASE 23 U/L (15-37)
[2017-04-09 06:00] LABS: HEMOGLOBIN 10.2 g/dL (13.7-18.0); WHITE BLOOD COUNT 7.1 x10^3/uL (3.4-10)
[2017-04-09] MEDS: HEPARIN 5,000 UNITS/ML, 1ML SQ SCH ×3 (06:27→21:31)
[2017-04-09] MEDS: METOPROLOL TARTRATE 25 MG TABLET PO SCH ×2 (06:27→18:46)
[2017-04-09 07:21] VITALS: BP 167/80
[2017-04-09] MEDS: POTASSIUM CHLORIDE 20 MEQ TAB.ER.PRT PO SCH (08:09)
[2017-04-09] MEDS: LOSARTAN 25MG TABLET PO SCH (08:11)
[2017-04-09] MEDS: FLUTICASONE NASAL SPRAY 16GM NAS SCH (08:11)
[2017-04-09] MEDS: LACTOBACILLUS CHEW TABLET PO SCH ×3 (08:11→20:31)
[2017-04-09] MEDS: FUROSEMIDE 20 MG TABLET PO SCH (08:12)
[2017-04-09] MEDS: CETIRIZINE 10 MG TABLET PO SCH (08:12)
[2017-04-09] MEDS: OXYcodone IR 5MG TABLET PO PRN ×2 (08:42→20:31)
[2017-04-09 12:44] VITALS: BP 143/78
[2017-04-09] MEDS: DIPHENOXYLATE/ATROPINE TABLET PO PRN (13:34)
[2017-04-09] MEDS: GABAPENTIN 300 MG CAPSULE PO SCH (20:31)
[2017-04-10 05:47] VITALS: BP 132/76
[2017-04-10] MEDS: HEPARIN 5,000 UNITS/ML, 1ML SQ SCH ×3 (05:53→21:43)
[2017-04-10] MEDS: METOPROLOL TARTRATE 25 MG TABLET PO SCH ×2 (05:53→18:37)
[2017-04-10] MEDS: LACTOBACILLUS CHEW TABLET PO SCH ×3 (08:04→20:26)
[2017-04-10] MEDS: POTASSIUM CHLORIDE 20 MEQ TAB.ER.PRT PO SCH (08:04)
[2017-04-10] MEDS: FLUTICASONE NASAL SPRAY 16GM NAS SCH (08:04)
[2017-04-10] MEDS: CETIRIZINE 10 MG TABLET PO SCH (08:04)
[2017-04-10 08:05] VITALS: BP 140/86
[2017-04-10] MEDS: LOSARTAN 25MG TABLET PO SCH (08:05)
[2017-04-10] MEDS: OXYcodone IR 5MG TABLET PO PRN ×3 (10:31→18:37)
[2017-04-10 14:00] VITALS: BP 147/81
[2017-04-10] MEDS: DIPHENOXYLATE/ATROPINE TABLET PO PRN ×2 (14:24→20:26)
[2017-04-10 19:25] VITALS: BP 160/82
[2017-04-10 19:54] VITALS: BP 154/82
[2017-04-10] MEDS: GABAPENTIN 300 MG CAPSULE PO SCH (20:26)
[2017-04-11] MEDS: OXYcodone IR 5MG TABLET PO PRN ×4 (00:04→20:06)
[2017-04-11 02:14] VITALS: BP 128/63
[2017-04-11 05:42] LABS: HEMATOCRIT 30.8 % (39.2-51.8); HEMOGLOBIN 10.4 g/dL (13.7-18.0)
[2017-04-11 06:00] LABS: BLOOD UREA NITROGEN 28 mg/dL (7-18)
[2017-04-11] MEDS: HEPARIN 5,000 UNITS/ML, 1ML SQ SCH ×2 (06:18→18:33)
[2017-04-11] MEDS: METOPROLOL TARTRATE 25 MG TABLET PO SCH ×2 (06:18→18:33)
[2017-04-11 07:27] VITALS: BP 156/81
[2017-04-11] MEDS: POTASSIUM CHLORIDE 20 MEQ TAB.ER.PRT PO SCH (08:04)
[2017-04-11] MEDS: FLUTICASONE NASAL SPRAY 16GM NAS SCH (08:04)
[2017-04-11] MEDS: CETIRIZINE 10 MG TABLET PO SCH (08:05)
[2017-04-11] MEDS: ERGOCALCIFEROL 50,000 UNIT CAPSULE PO SCH (08:05)
[2017-04-11] MEDS: LACTOBACILLUS CHEW TABLET PO SCH ×3 (08:05→20:06)
[2017-04-11] MEDS: LOSARTAN 25MG TABLET PO SCH (08:06)
[2017-04-11 13:36] VITALS: BP 155/82
[2017-04-11] MEDS: GABAPENTIN 300 MG CAPSULE PO SCH (20:06)
[2017-04-11 20:59] VITALS: BP 141/69
[2017-04-12] MEDS: HEPARIN 5,000 UNITS/ML, 1ML SQ SCH ×3 (04:17→18:44)
[2017-04-12 04:52] VITALS: BP 135/67
[2017-04-12] MEDS: METOPROLOL TARTRATE 25 MG TABLET PO SCH ×2 (05:13→20:22)
[2017-04-12 07:17] VITALS: BP 153/81
[2017-04-12] MEDS: FLUTICASONE NASAL SPRAY 16GM NAS SCH (09:56)
[2017-04-12] MEDS: OXYcodone IR 5MG TABLET PO PRN ×3 (09:56→18:44)
[2017-04-12] MEDS: CETIRIZINE 10 MG TABLET PO SCH (09:57)
[2017-04-12] MEDS: LACTOBACILLUS CHEW TABLET PO SCH ×3 (09:57→20:21)
[2017-04-12] MEDS: POTASSIUM CHLORIDE 20 MEQ TAB.ER.PRT PO SCH (09:57)
[2017-04-12] MEDS: LOSARTAN 25MG TABLET PO SCH (09:57)
[2017-04-12 12:57] VITALS: BP 152/75
[2017-04-12 19:37] VITALS: BP 144/76
[2017-04-12] MEDS: GABAPENTIN 300 MG CAPSULE PO SCH (20:21)
[2017-04-13 03:59] VITALS: BP 159/76
[2017-04-13 04:59] LABS: HEMATOCRIT 33.6 % (39.2-51.8); HEMOGLOBIN 11.3 g/dL (13.7-18.0); WHITE BLOOD COUNT 9.3 x10^3/uL (3.4-10)
[2017-04-13 05:08] LABS: BLOOD UREA NITROGEN 25 mg/dL (7-18)
[2017-04-13] MEDS: OXYcodone IR 5MG TABLET PO PRN ×5 (05:57→23:15)
[2017-04-13] MEDS: METOPROLOL TARTRATE 25 MG TABLET PO SCH ×2 (05:58→17:15)
[2017-04-13] MEDS: HEPARIN 5,000 UNITS/ML, 1ML SQ SCH ×3 (05:59→21:12)
[2017-04-13 08:00] VITALS: BP 146/85
[2017-04-13] MEDS: LACTOBACILLUS CHEW TABLET PO SCH ×3 (08:50→20:06)
[2017-04-13] MEDS: FLUTICASONE NASAL SPRAY 16GM NAS SCH ×2 (08:50→08:54)
[2017-04-13] MEDS: POTASSIUM CHLORIDE 20 MEQ TAB.ER.PRT PO SCH (08:51)
[2017-04-13] MEDS: CETIRIZINE 10 MG TABLET PO SCH (08:51)
[2017-04-13] MEDS: LOSARTAN 25MG TABLET PO SCH (08:51)
[2017-04-13 12:50] VITALS: BP 165/78
[2017-04-13 17:22] VITALS: BP 162/81
[2017-04-13 19:27] VITALS: BP 150/75
[2017-04-13] MEDS: GABAPENTIN 300 MG CAPSULE PO SCH (20:06)
[2017-04-14 00:59] VITALS: BP 147/71
[2017-04-14] MEDS: HEPARIN 5,000 UNITS/ML, 1ML SQ SCH ×3 (06:35→21:41)
[2017-04-14] MEDS: OXYcodone IR 5MG TABLET PO PRN ×6 (06:35→22:18)
[2017-04-14] MEDS: METOPROLOL TARTRATE 25 MG TABLET PO SCH ×2 (06:37→17:36)
[2017-04-14 07:02] VITALS: BP_SYST 154; BP_SYST 157; BP_DIAS 77; BP_DIAS 87
[2017-04-14] MEDS: FLUTICASONE NASAL SPRAY 16GM NAS SCH (09:00)
[2017-04-14] MEDS: LACTOBACILLUS CHEW TABLET PO SCH ×3 (09:14→20:17)
[2017-04-14] MEDS: POTASSIUM CHLORIDE 20 MEQ TAB.ER.PRT PO SCH (09:14)
[2017-04-14] MEDS: LOSARTAN 25MG TABLET PO SCH (09:14)
[2017-04-14] MEDS: CETIRIZINE 10 MG TABLET PO SCH (09:15)
[2017-04-14 12:54] VITALS: BP 173/73
[2017-04-14] MEDS ORDERED: BISACODYL 10 MG SUPP PR PRN (17:00)
[2017-04-14] MEDS ORDERED: SENNA/DOCUSATE TABLET PO PRN (17:00)
[2017-04-14 17:39] VITALS: BP 153/75
[2017-04-14 20:00] VITALS: BP 152/71
[2017-04-14] MEDS: GABAPENTIN 300 MG CAPSULE PO SCH (20:17)
[2017-04-15] MEDS ORDERED: SENNA/DOCUSATE TABLET PO PRN (01:30)
[2017-04-15] MEDS ORDERED: BISACODYL 10 MG SUPP PR PRN (01:30)
[2017-04-15] MEDS ORDERED: GLUCAGON 1 MG IM PRN (01:30)
[2017-04-15] MEDS ORDERED: ACETAMINOPHEN 325 MG TABLET PO PRN (01:30)
[2017-04-15] MEDS ORDERED: DEXTROSE 50%, 50ML SYRINGE IVPush PRN (01:30)
[2017-04-15 03:40] VITALS: BP 157/80
[2017-04-15] MEDS: OXYcodone IR 5MG TABLET PO PRN ×5 (04:07→22:01)
[2017-04-15] MEDS: HEPARIN 5,000 UNITS/ML, 1ML SQ SCH ×3 (06:20→22:02)
[2017-04-15] MEDS: METOPROLOL TARTRATE 25 MG TABLET PO SCH ×2 (06:20→17:54)
[2017-04-15 07:24] VITALS: BP 133/81
[2017-04-15] MEDS: POTASSIUM CHLORIDE 20 MEQ TAB.ER.PRT PO SCH (08:01)
[2017-04-15] MEDS: LOSARTAN 25MG TABLET PO SCH (08:01)
[2017-04-15] MEDS: CETIRIZINE 10 MG TABLET PO SCH (08:02)
[2017-04-15] MEDS: FLUTICASONE NASAL SPRAY 16GM NAS SCH (08:02)
[2017-04-15] MEDS: LACTOBACILLUS CHEW TABLET PO SCH ×3 (08:12→22:01)
[2017-04-15 17:27] VITALS: BP 148/70
[2017-04-15 19:57] VITALS: BP 140/72
[2017-04-15] MEDS: GABAPENTIN 300 MG CAPSULE PO SCH (22:02)
[2017-04-16] MEDS: OXYcodone IR 5MG TABLET PO PRN ×4 (03:07→20:29)
[2017-04-16 03:25] VITALS: BP 146/77
[2017-04-16] MEDS: HEPARIN 5,000 UNITS/ML, 1ML SQ SCH ×3 (05:17→22:15)
[2017-04-16] MEDS: METOPROLOL TARTRATE 25 MG TABLET PO SCH ×2 (05:17→18:10)
[2017-04-16 05:48] LABS: HEMATOCRIT 32.1 % (39.2-51.8); HEMOGLOBIN 10.8 g/dL (13.7-18.0); WHITE BLOOD COUNT 7.8 x10^3/uL (3.4-10)
[2017-04-16 05:54] LABS: BLOOD UREA NITROGEN 32 mg/dL (7-18)
[2017-04-16 08:39] VITALS: BP 130/75
[2017-04-16] MEDS: LACTOBACILLUS CHEW TABLET PO SCH ×3 (10:27→20:29)
[2017-04-16] MEDS: CETIRIZINE 10 MG TABLET PO SCH (10:28)
[2017-04-16] MEDS: POTASSIUM CHLORIDE 20 MEQ TAB.ER.PRT PO SCH (10:28)
[2017-04-16] MEDS: LOSARTAN 25MG TABLET PO SCH (10:28)
[2017-04-16] MEDS: FLUTICASONE NASAL SPRAY 16GM NAS SCH (10:28)
[2017-04-16] MEDS: MINERA CRM, 60GM TP SCH ×3 (12:19→20:30)
[2017-04-16 15:13] VITALS: BP 127/71
[2017-04-16 20:03] VITALS: BP 130/69
[2017-04-16] MEDS: GABAPENTIN 300 MG CAPSULE PO SCH (20:29)
[2017-04-17] MEDS: OXYcodone IR 5MG TABLET PO PRN ×4 (01:22→21:05)
[2017-04-17 03:59] VITALS: BP 134/71
[2017-04-17] MEDS: HEPARIN 5,000 UNITS/ML, 1ML SQ SCH ×3 (06:43→21:04)
[2017-04-17] MEDS: METOPROLOL TARTRATE 25 MG TABLET PO SCH ×2 (06:43→17:23)
[2017-04-17 07:37] LABS: ASPARTATE AMINO TRANSFERASE 23 U/L (15-37); BLOOD UREA NITROGEN 36 mg/dL (7-18)
[2017-04-17 08:37] VITALS: BP 134/74
[2017-04-17] MEDS: MINERA CRM, 60GM TP SCH ×3 (09:24→19:53)
[2017-04-17] MEDS: FLUTICASONE NASAL SPRAY 16GM NAS SCH (09:30)
[2017-04-17] MEDS: CETIRIZINE 10 MG TABLET PO SCH (09:31)
[2017-04-17] MEDS: LOSARTAN 25MG TABLET PO SCH (09:31)
[2017-04-17] MEDS: POTASSIUM CHLORIDE 20 MEQ TAB.ER.PRT PO SCH (09:31)
[2017-04-17] MEDS: LACTOBACILLUS CHEW TABLET PO SCH ×3 (09:31→19:53)
[2017-04-17 13:50] VITALS: BP 135/75
[2017-04-17] MEDS: GABAPENTIN 300 MG CAPSULE PO SCH (19:53)
[2017-04-17 20:08] VITALS: BP 131/70
[2017-04-18] MEDS: OXYcodone IR 5MG TABLET PO PRN ×4 (01:45→20:13)
[2017-04-18 04:00] VITALS: BP 134/68
[2017-04-18] MEDS: METOPROLOL TARTRATE 25 MG TABLET PO SCH ×2 (06:05→17:09)
[2017-04-18] MEDS: HEPARIN 5,000 UNITS/ML, 1ML SQ SCH ×3 (06:06→20:29)
[2017-04-18 06:36] LABS: HEMATOCRIT 32.5 % (39.2-51.8); HEMOGLOBIN 10.7 g/dL (13.7-18.0); WHITE BLOOD COUNT 7.5 x10^3/uL (3.4-10)
[2017-04-18 06:45] LABS: BLOOD UREA NITROGEN 37 mg/dL (7-18)
[2017-04-18 06:48] LABS: ASPARTATE AMINO TRANSFERASE 21 U/L (15-37)
[2017-04-18 07:24] VITALS: BP 129/71
[2017-04-18] MEDS: POTASSIUM CHLORIDE 20 MEQ TAB.ER.PRT PO SCH (09:09)
[2017-04-18] MEDS: LACTOBACILLUS CHEW TABLET PO SCH ×3 (10:46→20:02)
[2017-04-18] MEDS: CETIRIZINE 10 MG TABLET PO SCH (10:46)
[2017-04-18] MEDS: FLUTICASONE NASAL SPRAY 16GM NAS SCH (10:46)
[2017-04-18] MEDS: ERGOCALCIFEROL 50,000 UNIT CAPSULE PO SCH (10:47)
[2017-04-18] MEDS: LOSARTAN 25MG TABLET PO SCH (10:47)
[2017-04-18] MEDS: MINERA CRM, 60GM TP SCH ×3 (10:48→20:02)
[2017-04-18 13:39] VITALS: BP 107/68
[2017-04-18 18:28] VITALS: BP 90/46
[2017-04-18] MEDS: GABAPENTIN 300 MG CAPSULE PO SCH (20:02)
[2017-04-18 20:08] VITALS: BP 118/65
[2017-04-19 03:55] VITALS: BP 120/71
[2017-04-19] MEDS: OXYcodone IR 5MG TABLET PO PRN ×4 (06:13→20:15)
[2017-04-19] MEDS: METOPROLOL TARTRATE 25 MG TABLET PO SCH ×2 (06:13→18:31)
[2017-04-19] MEDS: HEPARIN 5,000 UNITS/ML, 1ML SQ SCH ×3 (06:14→22:53)
[2017-04-19] MEDS: POTASSIUM CHLORIDE 20 MEQ TAB.ER.PRT PO SCH (08:09)
[2017-04-19] MEDS: FLUTICASONE NASAL SPRAY 16GM NAS SCH ×2 (08:09→08:11)
[2017-04-19] MEDS: LOSARTAN 25MG TABLET PO SCH (08:09)
[2017-04-19] MEDS: MINERA CRM, 60GM TP SCH ×3 (08:09→20:15)
[2017-04-19] MEDS: LACTOBACILLUS CHEW TABLET PO SCH ×3 (08:09→20:15)
[2017-04-19 08:10] VITALS: BP 125/73
[2017-04-19] MEDS: CETIRIZINE 10 MG TABLET PO SCH (08:11)
[2017-04-19 15:51] VITALS: BP 119/69
[2017-04-19 19:50] VITALS: BP 143/68
[2017-04-19] MEDS: GABAPENTIN 300 MG CAPSULE PO SCH (20:15)
[2017-04-20] MEDS: OXYcodone IR 5MG TABLET PO PRN ×5 (00:17→20:43)
[2017-04-20 01:14] VITALS: BP 117/62
[2017-04-20] MEDS: METOPROLOL TARTRATE 25 MG TABLET PO SCH ×3 (06:34→18:24)
[2017-04-20 07:29] VITALS: BP 125/69
[2017-04-20] MEDS: HEPARIN 5,000 UNITS/ML, 1ML SQ SCH ×2 (08:12→16:53)
[2017-04-20] MEDS: LOSARTAN 25MG TABLET PO SCH (08:13)
[2017-04-20] MEDS: MINERA CRM, 60GM TP SCH ×3 (08:13→20:43)
[2017-04-20] MEDS: LACTOBACILLUS CHEW TABLET PO SCH ×3 (08:13→20:42)
[2017-04-20] MEDS: CETIRIZINE 10 MG TABLET PO SCH (08:13)
[2017-04-20] MEDS: POTASSIUM CHLORIDE 20 MEQ TAB.ER.PRT PO SCH (08:13)
[2017-04-20] MEDS: FLUTICASONE NASAL SPRAY 16GM NAS SCH (08:22)
[2017-04-20 13:11] VITALS: BP 120/66
[2017-04-20 20:37] VITALS: BP 153/65
[2017-04-20] MEDS: GABAPENTIN 300 MG CAPSULE PO SCH (20:43)
[2017-04-21] MEDS: HEPARIN 5,000 UNITS/ML, 1ML SQ SCH ×3 (01:05→17:15)
[2017-04-21] MEDS: OXYcodone IR 5MG TABLET PO PRN ×6 (01:05→22:19)
[2017-04-21 02:03] VITALS: BP 115/69
[2017-04-21 06:26] VITALS: BP 132/73
[2017-04-21] MEDS: POTASSIUM CHLORIDE 20 MEQ TAB.ER.PRT PO SCH (07:37)
[2017-04-21] MEDS: METOPROLOL TARTRATE 25 MG TABLET PO SCH ×2 (07:37→17:56)
[2017-04-21] MEDS: CETIRIZINE 10 MG TABLET PO SCH (07:38)
[2017-04-21] MEDS: LACTOBACILLUS CHEW TABLET PO SCH ×3 (07:38→19:44)
[2017-04-21] MEDS: FLUTICASONE NASAL SPRAY 16GM NAS SCH (07:38)
[2017-04-21] MEDS: LOSARTAN 25MG TABLET PO SCH (07:38)
[2017-04-21] MEDS: MINERA CRM, 60GM TP SCH ×3 (08:47→22:20)
[2017-04-21 17:54] VITALS: BP 131/71
[2017-04-21 19:47] VITALS: BP 126/72
[2017-04-21] MEDS: GABAPENTIN 300 MG CAPSULE PO SCH (22:19)
[2017-04-22 03:36] VITALS: BP 110/57
[2017-04-22] MEDS: OXYcodone IR 5MG TABLET PO PRN ×5 (03:40→21:11)
[2017-04-22] MEDS: HEPARIN 5,000 UNITS/ML, 1ML SQ SCH ×3 (03:45→19:50)
[2017-04-22 04:17] LABS: HEMATOCRIT 32.1 % (39.2-51.8); HEMOGLOBIN 10.8 g/dL (13.7-18.0); WHITE BLOOD COUNT 7.6 x10^3/uL (3.4-10)
[2017-04-22 04:28] LABS: ASPARTATE AMINO TRANSFERASE 21 U/L (15-37); BLOOD UREA NITROGEN 39 mg/dL (7-18)
[2017-04-22] MEDS: METOPROLOL TARTRATE 25 MG TABLET PO SCH ×2 (05:12→18:13)
[2017-04-22 08:00] VITALS: BP 134/73
[2017-04-22] MEDS: POTASSIUM CHLORIDE 20 MEQ TAB.ER.PRT PO SCH (08:03)
[2017-04-22] MEDS: LACTOBACILLUS CHEW TABLET PO SCH ×3 (10:24→19:50)
[2017-04-22] MEDS: FLUTICASONE NASAL SPRAY 16GM NAS SCH (10:24)
[2017-04-22] MEDS: CETIRIZINE 10 MG TABLET PO SCH (10:25)
[2017-04-22] MEDS: LOSARTAN 25MG TABLET PO SCH (10:25)
[2017-04-22] MEDS: MINERA CRM, 60GM TP SCH ×3 (10:25→19:53)
[2017-04-22 12:53] VITALS: BP 137/73
[2017-04-22] MEDS ORDERED: GLUCAGON 1 MG IM PRN (19:30)
[2017-04-22] MEDS ORDERED: DEXTROSE 50%, 50ML SYRINGE IVPush PRN (19:30)
[2017-04-22] MEDS ORDERED: BISACODYL 10 MG SUPP PR PRN (19:30)
[2017-04-22] MEDS ORDERED: ACETAMINOPHEN 325 MG TABLET PO PRN (19:30)
[2017-04-22] MEDS: GABAPENTIN 300 MG CAPSULE PO SCH (19:50)
[2017-04-22 19:58] VITALS: BP 127/65
[2017-04-23 03:29] VITALS: BP 119/55
[2017-04-23] MEDS: METOPROLOL TARTRATE 25 MG TABLET PO SCH ×2 (05:09→18:00)
[2017-04-23 05:10] VITALS: BP 104/57
[2017-04-23] MEDS: HEPARIN 5,000 UNITS/ML, 1ML SQ SCH ×3 (05:10→21:15)
[2017-04-23 07:24] VITALS: BP 123/66
[2017-04-23] MEDS: MINERA CRM, 60GM TP SCH ×3 (08:34→21:00)
[2017-04-23] MEDS: POTASSIUM CHLORIDE 20 MEQ TAB.ER.PRT PO SCH (08:34)
[2017-04-23] MEDS: LACTOBACILLUS CHEW TABLET PO SCH ×3 (08:34→21:15)
[2017-04-23] MEDS: FLUTICASONE NASAL SPRAY 16GM NAS SCH (08:34)
[2017-04-23] MEDS: CETIRIZINE 10 MG TABLET PO SCH (08:34)
[2017-04-23] MEDS: LOSARTAN 25MG TABLET PO SCH (08:35)
[2017-04-23] MEDS: OXYcodone IR 5MG TABLET PO PRN ×3 (10:08→19:26)
[2017-04-23 12:34] VITALS: BP 113/64
[2017-04-23 20:00] VITALS: BP 126/60
[2017-04-23] MEDS: GABAPENTIN 300 MG CAPSULE PO SCH (21:15)
[2017-04-24 02:45] VITALS: BP 114/59
[2017-04-24] MEDS: HEPARIN 5,000 UNITS/ML, 1ML SQ SCH ×3 (05:05→20:48)
[2017-04-24 06:00] LABS: ASPARTATE AMINO TRANSFERASE 25 U/L (15-37); BLOOD UREA NITROGEN 41 mg/dL (7-18)
[2017-04-24] MEDS: METOPROLOL TARTRATE 25 MG TABLET PO SCH ×2 (06:10→18:37)
[2017-04-24 06:14] VITALS: BP 118/58
[2017-04-24] MEDS: POTASSIUM CHLORIDE 20 MEQ TAB.ER.PRT PO SCH (08:00)
[2017-04-24 08:40] VITALS: BP 138/68
[2017-04-24] MEDS: OXYcodone IR 5MG TABLET PO PRN ×3 (09:36→18:38)
[2017-04-24] MEDS: MINERA CRM, 60GM TP SCH ×3 (09:36→20:49)
[2017-04-24] MEDS: FLUTICASONE NASAL SPRAY 16GM NAS SCH (09:36)
[2017-04-24] MEDS: CETIRIZINE 10 MG TABLET PO SCH (09:37)
[2017-04-24] MEDS: LOSARTAN 25MG TABLET PO SCH (09:37)
[2017-04-24] MEDS: LACTOBACILLUS CHEW TABLET PO SCH ×3 (09:37→20:48)
[2017-04-24] MEDS ORDERED: METO25TA35 PO (11:59)
[2017-04-24] MEDS ORDERED: ERGO500017 PO (11:59)
[2017-04-24] MEDS ORDERED: LOSA25TA2 PO (11:59)
[2017-04-24] MEDS ORDERED: GABA300C10 PO (11:59)
[2017-04-24] MEDS ORDERED: ACID1TAB7 PO (11:59)
[2017-04-24] MEDS ORDERED: CALA118S2 TP (11:59)
[2017-04-24 20:20] VITALS: BP 112/55
[2017-04-24] MEDS: GABAPENTIN 300 MG CAPSULE PO SCH (20:48)
[2017-04-25 02:58] VITALS: BP 115/65
[2017-04-25] MEDS: HEPARIN 5,000 UNITS/ML, 1ML SQ SCH ×3 (05:03→20:41)
[2017-04-25 05:45] LABS: ASPARTATE AMINO TRANSFERASE 27 U/L (15-37); BLOOD UREA NITROGEN 43 mg/dL (7-18)
[2017-04-25 06:00] VITALS: BP 107/63
[2017-04-25] MEDS: METOPROLOL TARTRATE 25 MG TABLET PO SCH ×2 (06:00→17:20)
[2017-04-25 06:34] VITALS: BP 118/68
[2017-04-25] MEDS: OXYcodone IR 5MG TABLET PO PRN ×4 (07:57→21:28)
[2017-04-25] MEDS: MINERA CRM, 60GM TP SCH ×4 (07:58→20:43)
[2017-04-25] MEDS: LACTOBACILLUS CHEW TABLET PO SCH ×3 (07:58→20:41)
[2017-04-25] MEDS: CETIRIZINE 10 MG TABLET PO SCH (07:58)
[2017-04-25] MEDS: POTASSIUM CHLORIDE 20 MEQ TAB.ER.PRT PO SCH (07:58)
[2017-04-25] MEDS: LOSARTAN 25MG TABLET PO SCH (07:58)
[2017-04-25] MEDS: FLUTICASONE NASAL SPRAY 16GM NAS SCH (07:58)
[2017-04-25] MEDS: ERGOCALCIFEROL 50,000 UNIT CAPSULE PO SCH (07:58)
[2017-04-25 12:52] VITALS: BP 119/67
[2017-04-25 20:37] VITALS: BP 114/68
[2017-04-25] MEDS: GABAPENTIN 300 MG CAPSULE PO SCH (20:41)
[2017-04-26 04:02] VITALS: BP 125/65
[2017-04-26] MEDS: HEPARIN 5,000 UNITS/ML, 1ML SQ SCH ×2 (06:07→15:19)
[2017-04-26] MEDS: METOPROLOL TARTRATE 25 MG TABLET PO SCH (06:07)
[2017-04-26 06:35] VITALS: BP 123/72
[2017-04-26] MEDS: OXYcodone IR 5MG TABLET PO PRN ×2 (07:42→12:23)
[2017-04-26] MEDS: FLUTICASONE NASAL SPRAY 16GM NAS SCH (08:02)
[2017-04-26] MEDS: MINERA CRM, 60GM TP SCH (08:02)
[2017-04-26] MEDS: CETIRIZINE 10 MG TABLET PO SCH (08:02)
[2017-04-26] MEDS: LOSARTAN 25MG TABLET PO SCH (08:02)
[2017-04-26] MEDS: POTASSIUM CHLORIDE 20 MEQ TAB.ER.PRT PO SCH (08:02)
[2017-04-26] MEDS: LACTOBACILLUS CHEW TABLET PO SCH (08:02)
[2017-04-26 14:42] VITALS: BP 122/65
== END 2017-04-26 15:15 | DRG 3 ==
LOC: ED 11:46 → CCU 11:47 → ED 12:14 → 4NOR 03-13 18:40 → CCU 03-20 23:57 → 4NOR 03-25 16:01
PROVIDERS: ADMIT Hospitalist; ATTEND Hospitalist
PROC: 02HV33Z Insertion of Infusion Device into Superior Vena Cava, Percutaneous Approach (ICD-10-PCS; principal; 2017-02-05)
PROC: 5A1955Z Respiratory Ventilation, Greater than 96 Consecutive Hours (ICD-10-PCS; 2017-02-05)
PROC: 0BH18EZ Insertion of Endotracheal Airway into Trachea, Via Natural or Artificial Opening Endoscopic (ICD-10-PCS; 2017-02-05)
PROC: 5A1D60Z (ICD-10-PCS; 2017-02-05)
PROC: 0T9B70Z Drainage of Bladder with Drainage Device, Via Natural or Artificial Opening (ICD-10-PCS; 2017-02-05)
PROC: 6A551Z2 Pheresis of Platelets, Multiple (ICD-10-PCS; 2017-02-07)
PROC: 02HV33Z Insertion of Infusion Device into Superior Vena Cava, Percutaneous Approach (ICD-10-PCS; 2017-02-18)
PROC: B548ZZA Ultrasonography of Superior Vena Cava, Guidance (ICD-10-PCS; 2017-02-18)
PROC: 0B110F4 Bypass Trachea to Cutaneous with Tracheostomy Device, Open Approach (ICD-10-PCS; 2017-02-19)
PROC: 0DH63UZ Insertion of Feeding Device into Stomach, Percutaneous Approach (ICD-10-PCS; 2017-02-22)
PROC: 30233N1 Transfusion of Nonautologous Red Blood Cells into Peripheral Vein, Percutaneous Approach (ICD-10-PCS; 2017-02-23)
PROC: 0H9FX0Z Drainage of Right Hand Skin with Drainage Device, External Approach (ICD-10-PCS; 2017-03-02)
PROC: 0X6 Anatomical Regions, Upper Extremities, Detachment (ICD-10-PCS; 2017-03-02)
PROC: 0X6 Anatomical Regions, Upper Extremities, Detachment (ICD-10-PCS; 2017-03-02)
PROC: 0Y6J0Z3 Detachment at Left Lower Leg, Low, Open Approach (ICD-10-PCS; 2017-03-06)
PROC: 0Y6H0Z3 Detachment at Right Lower Leg, Low, Open Approach (ICD-10-PCS; 2017-03-06)
PROC: 0KB90ZZ Excision of Right Lower Arm and Wrist Muscle, Open Approach (ICD-10-PCS; 2017-03-12)
PROC: 0HBJXZZ Excision of Left Upper Leg Skin, External Approach (ICD-10-PCS; 2017-03-19)
PROC: 0HRDX74 Replacement of Right Lower Arm Skin with Autologous Tissue Substitute, Partial Thickness, External Approach (ICD-10-PCS; 2017-03-19)
PROC: 02HV33Z Insertion of Infusion Device into Superior Vena Cava, Percutaneous Approach (ICD-10-PCS; 2017-03-22)
PROC: B548ZZA Ultrasonography of Superior Vena Cava, Guidance (ICD-10-PCS; 2017-03-22)
PROC: 0PBH0ZZ Excision of Right Radius, Open Approach (ICD-10-PCS; 2017-04-02)
DX: A41.9 Sepsis, unspecified organism (principal); R65.21 Severe sepsis with septic shock; N17.0 Acute kidney failure with tubular necrosis; I21.4 Non-ST elevation (NSTEMI) myocardial infarction; E43 Unspecified severe protein-calorie malnutrition; J18.9 Pneumonia, unspecified organism; I11.0 Hypertensive heart disease with heart failure; B49 Unspecified mycosis; I50.9 Heart failure, unspecified; I96 Gangrene, not elsewhere classified; J96.00 Acute respiratory failure, unspecified whether with hypoxia or hypercapnia; E87.2 Acidosis; K92.2 Gastrointestinal hemorrhage, unspecified; D62 Acute posthemorrhagic anemia; E27.40 Unspecified adrenocortical insufficiency; E87.1 Hypo-osmolality and hyponatremia; I42.9 Cardiomyopathy, unspecified; I82.619 Acute embolism and thrombosis of superficial veins of unspecified upper extremity; J44.0 Chronic obstructive pulmonary disease with (acute) lower respiratory infection; J98.11 Atelectasis; K56.7 Ileus, unspecified; L03.113 Cellulitis of right upper limb; M62.82 Rhabdomyolysis; N25.81 Secondary hyperparathyroidism of renal origin; T86.828 Other complications of skin graft (allograft) (autograft); Z99.11 Dependence on respirator [ventilator] status; K76.0 Fatty (change of) liver, not elsewhere classified; D69.6 Thrombocytopenia, unspecified; W54.0XXA Bitten by dog, initial encounter; B95.0 Streptococcus, group A, as the cause of diseases classified elsewhere; B95.4 Other streptococcus as the cause of diseases classified elsewhere; D50.0 Iron deficiency anemia secondary to blood loss (chronic); E16.2 Hypoglycemia, unspecified; Z68.24 Body mass index [BMI] 24.0-24.9, adult; E55.9 Vitamin D deficiency, unspecified; E83.42 Hypomagnesemia; E83.51 Hypocalcemia; E87.5 Hyperkalemia; E87.6 Hypokalemia; F10.20 Alcohol dependence, uncomplicated; F12.90 Cannabis use, unspecified, uncomplicated; F17.210 Nicotine dependence, cigarettes, uncomplicated; F41.9 Anxiety disorder, unspecified; G62.9 Polyneuropathy, unspecified; G89.29 Other chronic pain; I25.2 Old myocardial infarction; I73.9 Peripheral vascular disease, unspecified; I80.8 Phlebitis and thrombophlebitis of other sites; I99.8 Other disorder of circulatory system; K70.9 Alcoholic liver disease, unspecified; K75.9 Inflammatory liver disease, unspecified; R13.12 Dysphagia, oropharyngeal phase; Y83.2 Surgical operation with anastomosis, bypass or graft as the cause of abnormal reaction of the patient, or of later complication, without mention of misadventure at the time of the procedure; Y90.0 Blood alcohol level of less than 20 mg/100 ml; Z51.5 Encounter for palliative care; Z79.899 Other long term (current) drug therapy; Z82.49 Family history of ischemic heart disease and other diseases of the circulatory system; Z89.511 Acquired absence of right leg below knee; Z89.512 Acquired absence of left leg below knee; Z99.2 Dependence on renal dialysis
CPT/HCPCS: 36415; 36556; 36569; 36600; 71010; 74000; 74230; 76700; 76937; 77001; 78452; 80048; 80053; 80069; 80307; 81001; 82010; 82040; 82140; 82150; 82306; 82310; 82330; 82436; 82533; 82550; 82570; 82728; 82803; 82947; 82962; 83540; 83550; 83605; 83690; 83735; 83935; 83970; 84100; 84132; 84133; 84145; 84300; 84443; 84478; 84484; 84550; 85014; 85018; 85025; 85384; 85520; 85610; 85651; 85730; 86140; 86703; 86704; 86706; 86803; 86850; 86900; 86923; 87040; 87070; 87077; 87081; 87086; 87106; 87147; 87181; 87186; 87205; 87324; 87340; 87899; 88300; 88307; 93005; 93017; 93306; 93308; 93321; 93325; 93970; 94002; 94003; 94150; 94640; 96365; 96368; 96375; 99152; 99153; B4087; J0171; J0295; J0690; J1100; J1170; J1450; J1644; J1650; J1756; J1940; J2185; J2248; J2250; J2354; J2405; J2543; J2704; J2785; J3010; J3370; J3411; J3480; J3490; J7042; J7070; J7620; P9047; A9502; C1751; C1763; C9113; C9898; G0435; G0479; J1642; J1720; J2370; J2765; J3475; J7030; J7040; J7050; P9016; P9035

== ENCOUNTER 2017-04-30 12:42 | Inpatient (IN) | payer MEDICARE, MEDICAID ==
[~2017-04-30] VITALS: Ht 152.4 cm; Wt 67.3 kg
[~2017-04-30 12:42] MED LIST: ACID1TAB7 PO; CALA118S2 TP; ERGO500017 PO; GABA300C10 PO; LOSA25TA2 PO; METO25TA35 PO
[2017-04-30] MEDS ORDERED: BACITRACIN 50,000 UNIT ONE (13:04)
[2017-04-30] MEDS ORDERED: GABA300C10 PO (13:49)
[2017-04-30] MEDS ORDERED: LOSA25TA5 PO (13:49)
[2017-04-30] MEDS ORDERED: ERGO500017 PO (13:49)
[2017-04-30] MEDS ORDERED: OXYC10TA47 PO (13:49)
[2017-04-30] MEDS ORDERED: METO25TA35 PO (13:49)
[2017-04-30] MEDS ORDERED: ACID1TAB PO (13:49)
[2017-04-30] MEDS ORDERED: MINERAL OIL 10 ML VIAL MC ONE (14:36)
[2017-04-30] MEDS ORDERED: SUCCINYLCHOLINE 20 MG/ML, 10ML ONE (14:40)
[2017-04-30] MEDS ORDERED: PROPOFOL 10 MG/ML, 20ML ONE (14:40)
[2017-04-30] MEDS ORDERED: DEXAMETHASONE 4 MG/ML, 1ML ONE (14:40)
[2017-04-30] MEDS ORDERED: ONDANSETRON 2MG/ML, 2ML ONE (14:40)
[2017-04-30] MEDS ORDERED: MIDAZOLAM 1 MG/ML, 2ML ONE (14:42)
[2017-04-30] MEDS ORDERED: FENTANYL PF 100 MCG/2ML ONE ×2 (14:42)
[2017-04-30] MEDS ORDERED: PHENYLEPHRINE 10 MG/ML ONE (15:05)
[2017-04-30] MEDS ORDERED: BUPIVACAINE/PF 0.5% ONE (15:58)
[2017-04-30] MEDS ORDERED: EPINEPHRINE 1 MG/ML, 1ML ONE (15:58)
[2017-04-30] MEDS ORDERED: OXYcodone 5 MG/5 ML ORAL.SOL UDC PO PRN (16:00)
[2017-04-30] MEDS ORDERED: FENTANYL PF 100 MCG/2ML IV PRN (16:00)
[2017-04-30] MEDS ORDERED: ACETAMINOPHEN 325 MG TABLET PO PRN (16:00)
[2017-04-30] MEDS ORDERED: HYDROcodone/APAP 7.5-325MG/15ML UDC PO PRN (16:00)
[2017-04-30] MEDS ORDERED: HYDROmorphone 1 MG/ML, 1ML IV PRN (16:00)
[2017-04-30] MEDS ORDERED: ONDANSETRON 2MG/ML, 2ML IVPush PRN (16:00)
[2017-04-30] MEDS ORDERED: morphine SULFATE 10 MG/ML, 1ML IV PRN (18:00)
[2017-04-30] MEDS: OxyconTIN ER 10 MG TAB.ER PO SCH (19:40)
[2017-04-30 19:52] VITALS: BP 124/73
[2017-04-30] MEDS: CEFAZOLIN PMX 1GM/50ML 50 ML IV SCH (22:48)
[2017-04-30 23:00] VITALS: BP 128/72
[2017-04-30] MEDS ORDERED: ALPR0.5T PO (23:35)
[2017-05-01] MEDS: OxyconTIN ER 10 MG TAB.ER PO SCH ×2 (02:00→04:17)
[2017-05-01 03:41] VITALS: BP 120/67
[2017-05-01] MEDS: CEFAZOLIN PMX 1GM/50ML 50 ML IV SCH (05:42)
[2017-05-01 08:05] VITALS: BP 151/72
[2017-05-01] MEDS: METOPROLOL TARTRATE 25 MG TABLET PO SCH (09:07)
[2017-05-01] MEDS: LOSARTAN 25MG TABLET PO SCH (09:07)
[2017-05-01] MEDS: GABAPENTIN 300 MG CAPSULE PO SCH (09:07)
[2017-05-01] MEDS: LACTOBACILLUS CHEW TABLET PO SCH (09:07)
[2017-05-01] MEDS: ERGOCALCIFEROL 50,000 UNIT CAPSULE PO SCH (09:07)
[2017-05-01] MEDS ORDERED: CALAMINE LOTION 180ML TP PRN (11:30)
[2017-05-01] MEDS: OXYcodone IR 5MG TABLET PO PRN ×3 (11:36→19:43)
[2017-05-01 13:12] VITALS: BP 116/55
[2017-05-01 20:36] VITALS: BP 114/59
[2017-05-02] MEDS: OXYcodone IR 5MG TABLET PO PRN ×5 (00:29→18:30)
[2017-05-02 03:36] VITALS: BP 133/72
[2017-05-02 07:30] VITALS: BP 136/78
[2017-05-02] MEDS: LOSARTAN 25MG TABLET PO SCH (07:42)
[2017-05-02] MEDS: GABAPENTIN 300 MG CAPSULE PO SCH (07:42)
[2017-05-02] MEDS: LACTOBACILLUS CHEW TABLET PO SCH ×2 (07:42→07:43)
[2017-05-02] MEDS: METOPROLOL TARTRATE 25 MG TABLET PO SCH (07:43)
[2017-05-02 09:30] LABS: HEMATOCRIT 36.7 % (39.2-51.8); HEMOGLOBIN 12.4 g/dL (13.7-18.0); WHITE BLOOD COUNT 7.3 x10^3/uL (3.4-10)
[2017-05-02 09:42] LABS: BLOOD UREA NITROGEN 21 mg/dL (7-18)
[2017-05-02] MEDS: DOCUSATE 100 MG CAPSULE PO SCH ×2 (10:30→20:05)
[2017-05-02] MEDS ORDERED: SENNA/DOCUSATE TABLET PO PRN (10:30)
[2017-05-02 19:19] VITALS: BP 158/78
[2017-05-03] MEDS: OXYcodone IR 5MG TABLET PO PRN ×6 (00:04→22:09)
[2017-05-03 00:21] VITALS: BP 151/81
[2017-05-03 07:17] VITALS: BP 145/73
[2017-05-03] MEDS: LACTOBACILLUS CHEW TABLET PO SCH ×2 (08:09→08:12)
[2017-05-03] MEDS: LOSARTAN 25MG TABLET PO SCH (08:12)
[2017-05-03] MEDS: METOPROLOL TARTRATE 25 MG TABLET PO SCH (08:12)
[2017-05-03] MEDS: DOCUSATE 100 MG CAPSULE PO SCH ×2 (08:12→20:16)
[2017-05-03] MEDS: GABAPENTIN 300 MG CAPSULE PO SCH (08:12)
[2017-05-03 14:07] VITALS: BP 152/80
[2017-05-03 19:02] VITALS: BP 136/76
[2017-05-04] MEDS: OXYcodone IR 5MG TABLET PO PRN ×6 (02:48→22:23)
[2017-05-04 03:00] VITALS: BP 134/72
[2017-05-04 07:06] VITALS: BP 146/75
[2017-05-04] MEDS: LACTOBACILLUS CHEW TABLET PO SCH ×2 (09:00→09:21)
[2017-05-04] MEDS: METOPROLOL TARTRATE 25 MG TABLET PO SCH (09:21)
[2017-05-04] MEDS: GABAPENTIN 300 MG CAPSULE PO SCH (09:21)
[2017-05-04] MEDS: LOSARTAN 25MG TABLET PO SCH (09:21)
[2017-05-04] MEDS: DOCUSATE 100 MG CAPSULE PO SCH ×2 (09:22→20:16)
[2017-05-04 13:47] VITALS: BP 132/70
[2017-05-04 19:17] VITALS: BP 120/67
[2017-05-05 03:59] VITALS: BP 134/78
[2017-05-05] MEDS: OXYcodone IR 5MG TABLET PO PRN ×5 (04:10→20:12)
[2017-05-05 04:18] VITALS: BP 134/78
[2017-05-05 07:30] VITALS: BP 127/74
[2017-05-05] MEDS: DOCUSATE 100 MG CAPSULE PO SCH ×2 (08:14→20:12)
[2017-05-05] MEDS: LOSARTAN 25MG TABLET PO SCH (08:15)
[2017-05-05] MEDS: LACTOBACILLUS CHEW TABLET PO SCH ×2 (08:15)
[2017-05-05] MEDS: METOPROLOL TARTRATE 25 MG TABLET PO SCH (08:16)
[2017-05-05] MEDS: GABAPENTIN 300 MG CAPSULE PO SCH (08:16)
[2017-05-05 13:08] VITALS: BP 116/66
[2017-05-05 19:34] VITALS: BP 131/67
[2017-05-06] MEDS: OXYcodone IR 5MG TABLET PO PRN ×5 (02:46→20:22)
[2017-05-06 02:50] VITALS: BP 113/60
[2017-05-06 07:52] VITALS: BP 120/65
[2017-05-06] MEDS: LACTOBACILLUS CHEW TABLET PO SCH ×2 (09:00→09:39)
[2017-05-06] MEDS: GABAPENTIN 300 MG CAPSULE PO SCH (09:39)
[2017-05-06] MEDS: LOSARTAN 25MG TABLET PO SCH (09:39)
[2017-05-06] MEDS: METOPROLOL TARTRATE 25 MG TABLET PO SCH (09:40)
[2017-05-06] MEDS: DOCUSATE 100 MG CAPSULE PO SCH ×2 (09:40→20:21)
[2017-05-06 13:23] VITALS: BP 127/62
[2017-05-06 20:42] VITALS: BP 120/51
[2017-05-06] MEDS ORDERED: HYDROmorphone 1 MG/ML, 1ML IV PRN (21:30)
[2017-05-06] MEDS ORDERED: ACETAMINOPHEN 325 MG TABLET PO PRN (21:30)
[2017-05-06] MEDS ORDERED: ONDANSETRON 2MG/ML, 2ML IVPush PRN (21:30)
[2017-05-06] MEDS ORDERED: FENTANYL PF 100 MCG/2ML IV PRN (21:30)
[2017-05-06] MEDS ORDERED: HYDROcodone/APAP 7.5-325MG/15ML UDC PO PRN (21:30)
[2017-05-07 02:19] VITALS: BP 129/58
[2017-05-07] MEDS: OXYcodone IR 5MG TABLET PO PRN ×6 (02:21→22:35)
[2017-05-07 07:25] VITALS: BP 112/60
[2017-05-07] MEDS: LACTOBACILLUS CHEW TABLET PO SCH ×2 (09:00→09:20)
[2017-05-07] MEDS: DOCUSATE 100 MG CAPSULE PO SCH ×2 (09:19→21:04)
[2017-05-07] MEDS: LOSARTAN 25MG TABLET PO SCH (09:19)
[2017-05-07] MEDS: METOPROLOL TARTRATE 25 MG TABLET PO SCH (09:20)
[2017-05-07] MEDS: GABAPENTIN 300 MG CAPSULE PO SCH (09:20)
[2017-05-07 12:06] LABS: HEMATOCRIT 42.6 % (39.2-51.8); HEMOGLOBIN 14.3 g/dL (13.7-18.0)
[2017-05-07 12:11] LABS: BLOOD UREA NITROGEN 23 mg/dL (7-18)
[2017-05-07 13:21] VITALS: BP 112/68
[2017-05-07 19:42] VITALS: BP 126/61
[2017-05-08 02:47] VITALS: BP 118/64
[2017-05-08] MEDS: OXYcodone IR 5MG TABLET PO PRN ×5 (03:49→20:33)
[2017-05-08] MEDS: METOPROLOL TARTRATE 25 MG TABLET PO SCH (08:09)
[2017-05-08] MEDS: LACTOBACILLUS CHEW TABLET PO SCH ×2 (08:09→09:47)
[2017-05-08 08:10] VITALS: BP 120/53
[2017-05-08] MEDS: GABAPENTIN 300 MG CAPSULE PO SCH (08:10)
[2017-05-08] MEDS: ERGOCALCIFEROL 50,000 UNIT CAPSULE PO SCH (08:10)
[2017-05-08] MEDS: DOCUSATE 100 MG CAPSULE PO SCH ×2 (08:10→21:52)
[2017-05-08] MEDS: LOSARTAN 25MG TABLET PO SCH (09:48)
[2017-05-08 14:20] VITALS: BP 124/69
[2017-05-08 19:06] VITALS: BP 129/64
[2017-05-09] MEDS: OXYcodone IR 5MG TABLET PO PRN ×5 (00:22→21:21)
[2017-05-09 01:02] VITALS: BP 122/58
[2017-05-09 08:51] VITALS: BP 108/56
[2017-05-09] MEDS: DOCUSATE 100 MG CAPSULE PO SCH ×2 (09:11→21:21)
[2017-05-09] MEDS: LOSARTAN 25MG TABLET PO SCH (09:11)
[2017-05-09] MEDS: LACTOBACILLUS CHEW TABLET PO SCH ×2 (09:11→09:12)
[2017-05-09] MEDS: GABAPENTIN 300 MG CAPSULE PO SCH (09:12)
[2017-05-09] MEDS: METOPROLOL TARTRATE 25 MG TABLET PO SCH (09:13)
[2017-05-09] MEDS: MAGNESIUM HYDROXIDE 8%, 30ML UDC PO PRN (13:13)
[2017-05-09 14:35] VITALS: BP 115/59
[2017-05-09 19:53] VITALS: BP 116/60
[2017-05-10 02:15] VITALS: BP 110/55
[2017-05-10] MEDS: OXYcodone IR 5MG TABLET PO PRN ×5 (05:40→22:23)
[2017-05-10 07:56] VITALS: BP 111/57
[2017-05-10] MEDS: LACTOBACILLUS CHEW TABLET PO SCH ×2 (09:00→09:37)
[2017-05-10] MEDS: LOSARTAN 25MG TABLET PO SCH (09:36)
[2017-05-10] MEDS: GABAPENTIN 300 MG CAPSULE PO SCH (09:36)
[2017-05-10] MEDS: METOPROLOL TARTRATE 25 MG TABLET PO SCH (09:36)
[2017-05-10] MEDS: DOCUSATE 100 MG CAPSULE PO SCH ×2 (09:37→20:13)
[2017-05-10 12:56] VITALS: BP 109/63
[2017-05-10 19:05] VITALS: BP 120/64
[2017-05-11 01:52] VITALS: BP 131/75
[2017-05-11] MEDS: OXYcodone IR 5MG TABLET PO PRN ×5 (02:06→22:29)
[2017-05-11 07:26] VITALS: BP 107/61
[2017-05-11] MEDS: LACTOBACILLUS CHEW TABLET PO SCH ×2 (09:00→09:36)
[2017-05-11] MEDS: METOPROLOL TARTRATE 25 MG TABLET PO SCH (09:35)
[2017-05-11] MEDS: DOCUSATE 100 MG CAPSULE PO SCH ×2 (09:36→20:45)
[2017-05-11] MEDS: GABAPENTIN 300 MG CAPSULE PO SCH (09:36)
[2017-05-11] MEDS: LOSARTAN 25MG TABLET PO SCH (09:36)
[2017-05-11 13:43] VITALS: BP 114/58
[2017-05-11 19:20] VITALS: BP 129/66
[2017-05-12 04:00] VITALS: BP 127/67
[2017-05-12] MEDS: OXYcodone IR 5MG TABLET PO PRN ×5 (05:47→22:04)
[2017-05-12 07:21] VITALS: BP 105/56
[2017-05-12] MEDS: DOCUSATE 100 MG CAPSULE PO SCH ×2 (07:57→22:03)
[2017-05-12] MEDS: GABAPENTIN 300 MG CAPSULE PO SCH (07:57)
[2017-05-12] MEDS: LOSARTAN 25MG TABLET PO SCH (07:58)
[2017-05-12] MEDS: METOPROLOL TARTRATE 25 MG TABLET PO SCH (07:59)
[2017-05-12] MEDS: LACTOBACILLUS CHEW TABLET PO SCH ×2 (07:59→09:00)
[2017-05-12 12:19] VITALS: BP 128/62
[2017-05-12 19:02] VITALS: BP 127/57
[2017-05-13] MEDS: OXYcodone IR 5MG TABLET PO PRN ×6 (01:41→21:55)
[2017-05-13 01:50] VITALS: BP 103/42
[2017-05-13 07:41] VITALS: BP 112/55
[2017-05-13] MEDS: DOCUSATE 100 MG CAPSULE PO SCH ×2 (07:54→21:54)
[2017-05-13] MEDS: GABAPENTIN 300 MG CAPSULE PO SCH (07:54)
[2017-05-13] MEDS: METOPROLOL TARTRATE 25 MG TABLET PO SCH (07:54)
[2017-05-13] MEDS: LOSARTAN 25MG TABLET PO SCH (07:54)
[2017-05-13] MEDS: LACTOBACILLUS CHEW TABLET PO SCH (07:54)
[2017-05-13 08:32] LABS: BLOOD UREA NITROGEN 24 mg/dL (7-18)
[2017-05-13 09:25] LABS: HEMATOCRIT 37.8 % (39.2-51.8); HEMOGLOBIN 12.8 g/dL (13.7-18.0); WHITE BLOOD COUNT 7.8 x10^3/uL (3.4-10)
[2017-05-13] MEDS: MAGNESIUM HYDROXIDE 8%, 30ML UDC PO PRN (14:28)
[2017-05-13] MEDS: ENOXAPARIN 40 MG/0.4 ML SQ SCH (14:31)
[2017-05-13 15:00] VITALS: BP 117/58
[2017-05-13] MEDS ORDERED: HYDROcodone/APAP 7.5-325MG/15ML UDC PO PRN (19:00)
[2017-05-13] MEDS ORDERED: OXYcodone 5 MG/5 ML ORAL.SOL UDC PO PRN (19:00)
[2017-05-13] MEDS ORDERED: ONDANSETRON 2MG/ML, 2ML IVPush PRN (19:00)
[2017-05-13] MEDS ORDERED: morphine SULFATE 10 MG/ML, 1ML IV PRN (19:00)
[2017-05-13] MEDS ORDERED: ACETAMINOPHEN 325 MG TABLET PO PRN (19:00)
[2017-05-13 20:49] VITALS: BP 132/63
[2017-05-14] MEDS: OXYcodone IR 5MG TABLET PO PRN ×6 (03:41→23:59)
[2017-05-14 03:43] VITALS: BP 137/76
[2017-05-14] MEDS: METOPROLOL TARTRATE 25 MG TABLET PO SCH (07:57)
[2017-05-14] MEDS: LOSARTAN 25MG TABLET PO SCH (07:57)
[2017-05-14] MEDS: GABAPENTIN 300 MG CAPSULE PO SCH (07:57)
[2017-05-14] MEDS: DOCUSATE 100 MG CAPSULE PO SCH ×2 (07:57→20:30)
[2017-05-14] MEDS: LACTOBACILLUS CHEW TABLET PO SCH (07:57)
[2017-05-14 08:09] VITALS: BP 116/68
[2017-05-14 13:52] VITALS: BP 113/59
[2017-05-14 14:45] VITALS: BP 112/65
[2017-05-14] MEDS: ENOXAPARIN 40 MG/0.4 ML SQ SCH (14:56)
[2017-05-14 16:27] LABS: BLOOD UREA NITROGEN 23 mg/dL (7-18)
[2017-05-14 20:01] VITALS: BP 126/61
[2017-05-15 03:53] VITALS: BP 116/61
[2017-05-15] MEDS: OXYcodone IR 5MG TABLET PO PRN ×5 (04:01→21:03)
[2017-05-15] MEDS: LACTOBACILLUS CHEW TABLET PO SCH (08:14)
[2017-05-15] MEDS: DOCUSATE 100 MG CAPSULE PO SCH ×2 (08:14→21:03)
[2017-05-15] MEDS: ERGOCALCIFEROL 50,000 UNIT CAPSULE PO SCH (08:14)
[2017-05-15] MEDS: GABAPENTIN 300 MG CAPSULE PO SCH (08:14)
[2017-05-15] MEDS: LOSARTAN 25MG TABLET PO SCH ×2 (08:15→08:22)
[2017-05-15 08:21] VITALS: BP 123/83
[2017-05-15] MEDS: METOPROLOL TARTRATE 25 MG TABLET PO SCH (08:22)
[2017-05-15 14:09] VITALS: BP 112/63
[2017-05-15] MEDS: ENOXAPARIN 40 MG/0.4 ML SQ SCH (14:26)
[2017-05-15 18:59] VITALS: BP 132/66
[2017-05-15] MEDS: MAGNESIUM HYDROXIDE 8%, 30ML UDC PO PRN (21:03)
[2017-05-16] MEDS: OXYcodone IR 5MG TABLET PO PRN ×6 (00:51→22:04)
[2017-05-16 02:23] VITALS: BP 114/62
[2017-05-16 07:32] VITALS: BP 128/69
[2017-05-16] MEDS: DOCUSATE 100 MG CAPSULE PO SCH ×2 (07:57→20:22)
[2017-05-16] MEDS: LACTOBACILLUS CHEW TABLET PO SCH (07:57)
[2017-05-16] MEDS: METOPROLOL TARTRATE 25 MG TABLET PO SCH (07:57)
[2017-05-16] MEDS: GABAPENTIN 300 MG CAPSULE PO SCH (07:57)
[2017-05-16] MEDS: LOSARTAN 25MG TABLET PO SCH (07:58)
[2017-05-16 13:34] VITALS: BP 113/70
[2017-05-16] MEDS: ENOXAPARIN 40 MG/0.4 ML SQ SCH (14:10)
[2017-05-16 19:30] VITALS: BP 137/66
[2017-05-16] MEDS ORDERED: MINERA CRM, 60GM TP SCH (21:00)
[2017-05-16] MEDS: AQUAPHOR NATURAL HEALING OINT 50GM TP SCH (22:50)
[2017-05-17 01:30] VITALS: BP 112/63
[2017-05-17] MEDS: OXYcodone IR 5MG TABLET PO PRN ×5 (06:10→22:58)
[2017-05-17 07:15] VITALS: BP 111/62
[2017-05-17] MEDS: DOCUSATE 100 MG CAPSULE PO SCH ×2 (09:47→20:41)
[2017-05-17] MEDS: LOSARTAN 25MG TABLET PO SCH (09:48)
[2017-05-17] MEDS: METOPROLOL TARTRATE 25 MG TABLET PO SCH (09:48)
[2017-05-17] MEDS: AQUAPHOR NATURAL HEALING OINT 50GM TP SCH ×2 (09:48→20:41)
[2017-05-17] MEDS: LACTOBACILLUS CHEW TABLET PO SCH (09:48)
[2017-05-17] MEDS: GABAPENTIN 300 MG CAPSULE PO SCH (09:49)
[2017-05-17 13:58] VITALS: BP 120/64
[2017-05-17] MEDS: ENOXAPARIN 40 MG/0.4 ML SQ SCH (15:17)
[2017-05-17 18:32] VITALS: BP 120/67
[2017-05-18] MEDS: OXYcodone IR 5MG TABLET PO PRN ×6 (02:43→22:31)
[2017-05-18 02:47] VITALS: BP 120/77
[2017-05-18 07:36] VITALS: BP 102/55
[2017-05-18] MEDS: AQUAPHOR NATURAL HEALING OINT 50GM TP SCH ×2 (09:00→20:43)
[2017-05-18] MEDS: GABAPENTIN 300 MG CAPSULE PO SCH (09:43)
[2017-05-18] MEDS: LACTOBACILLUS CHEW TABLET PO SCH (09:43)
[2017-05-18] MEDS: LOSARTAN 25MG TABLET PO SCH (09:43)
[2017-05-18] MEDS: DOCUSATE 100 MG CAPSULE PO SCH ×2 (09:43→20:43)
[2017-05-18] MEDS: METOPROLOL TARTRATE 25 MG TABLET PO SCH (09:44)
[2017-05-18 13:06] VITALS: BP 136/76
[2017-05-18] MEDS: ENOXAPARIN 40 MG/0.4 ML SQ SCH (14:46)
[2017-05-18 20:02] VITALS: BP 145/68
[2017-05-18] MEDS: MAGNESIUM HYDROXIDE 8%, 30ML UDC PO PRN (20:43)
[2017-05-19 02:38] VITALS: BP 147/75
[2017-05-19] MEDS: OXYcodone IR 5MG TABLET PO PRN ×6 (02:38→22:14)
[2017-05-19 10:34] VITALS: BP 117/69
[2017-05-19] MEDS: LACTOBACILLUS CHEW TABLET PO SCH (10:39)
[2017-05-19] MEDS: DOCUSATE 100 MG CAPSULE PO SCH ×2 (10:39→22:14)
[2017-05-19] MEDS: GABAPENTIN 300 MG CAPSULE PO SCH (10:39)
[2017-05-19] MEDS: AQUAPHOR NATURAL HEALING OINT 50GM TP SCH ×2 (10:40→22:14)
[2017-05-19] MEDS: LOSARTAN 25MG TABLET PO SCH (10:40)
[2017-05-19] MEDS: METOPROLOL TARTRATE 25 MG TABLET PO SCH (10:40)
[2017-05-19] MEDS: ENOXAPARIN 40 MG/0.4 ML SQ SCH (14:35)
[2017-05-19 14:47] VITALS: BP 154/84
[2017-05-19 18:45] VITALS: BP 130/78
[2017-05-19] MEDS ORDERED: ACETAMINOPHEN 325 MG TABLET PO PRN (21:00)
[2017-05-19] MEDS ORDERED: HYDROmorphone 1 MG/ML, 1ML IV PRN (21:00)
[2017-05-19] MEDS ORDERED: ONDANSETRON 2MG/ML, 2ML IVPush PRN (21:00)
[2017-05-19] MEDS ORDERED: morphine SULFATE 10 MG/ML, 1ML IV PRN (21:00)
[2017-05-19] MEDS ORDERED: FENTANYL PF 100 MCG/2ML IV PRN (21:00)
[2017-05-19] MEDS ORDERED: OXYcodone 5 MG/5 ML ORAL.SOL UDC PO PRN (21:00)
[2017-05-20] MEDS: OXYcodone IR 5MG TABLET PO PRN ×6 (01:57→22:27)
[2017-05-20 03:50] VITALS: BP 114/68
[2017-05-20] MEDS: AQUAPHOR NATURAL HEALING OINT 50GM TP SCH ×2 (09:00→21:00)
[2017-05-20 09:23] VITALS: BP 124/72
[2017-05-20] MEDS: LACTOBACILLUS CHEW TABLET PO SCH (09:30)
[2017-05-20] MEDS: LOSARTAN 25MG TABLET PO SCH (09:30)
[2017-05-20] MEDS: DOCUSATE 100 MG CAPSULE PO SCH ×2 (09:30→21:28)
[2017-05-20] MEDS: METOPROLOL TARTRATE 25 MG TABLET PO SCH (09:31)
[2017-05-20] MEDS: GABAPENTIN 300 MG CAPSULE PO SCH (09:31)
[2017-05-20] MEDS: ENOXAPARIN 40 MG/0.4 ML SQ SCH (14:10)
[2017-05-20 14:15] VITALS: BP 145/79
[2017-05-20 20:21] VITALS: BP 135/72
[2017-05-21 02:00] VITALS: BP 126/69
[2017-05-21] MEDS: OXYcodone IR 5MG TABLET PO PRN ×6 (02:00→23:08)
[2017-05-21 07:32] VITALS: BP 125/68
[2017-05-21] MEDS: LACTOBACILLUS CHEW TABLET PO SCH (07:54)
[2017-05-21] MEDS: AQUAPHOR NATURAL HEALING OINT 50GM TP SCH ×2 (07:54→21:00)
[2017-05-21] MEDS: LOSARTAN 25MG TABLET PO SCH (07:54)
[2017-05-21] MEDS: DOCUSATE 100 MG CAPSULE PO SCH ×2 (07:54→23:08)
[2017-05-21] MEDS: GABAPENTIN 300 MG CAPSULE PO SCH (07:54)
[2017-05-21] MEDS: METOPROLOL TARTRATE 25 MG TABLET PO SCH (07:54)
[2017-05-21] MEDS: MAGNESIUM HYDROXIDE 8%, 30ML UDC PO PRN (08:17)
[2017-05-21 13:08] VITALS: BP 130/72
[2017-05-21] MEDS: ENOXAPARIN 40 MG/0.4 ML SQ SCH (14:39)
[2017-05-21 18:58] VITALS: BP 127/67
[2017-05-22] MEDS: OXYcodone IR 5MG TABLET PO PRN ×6 (03:14→23:15)
[2017-05-22 03:49] VITALS: BP 93/53
[2017-05-22 09:28] VITALS: BP 109/68
[2017-05-22] MEDS: LOSARTAN 25MG TABLET PO SCH (09:54)
[2017-05-22] MEDS: GABAPENTIN 300 MG CAPSULE PO SCH (09:54)
[2017-05-22] MEDS: METOPROLOL TARTRATE 25 MG TABLET PO SCH (09:55)
[2017-05-22] MEDS: ERGOCALCIFEROL 50,000 UNIT CAPSULE PO SCH (09:56)
[2017-05-22] MEDS: LACTOBACILLUS CHEW TABLET PO SCH (09:56)
[2017-05-22] MEDS: DOCUSATE 100 MG CAPSULE PO SCH ×2 (09:57→20:32)
[2017-05-22] MEDS: AQUAPHOR NATURAL HEALING OINT 50GM TP SCH ×3 (11:08→20:34)
[2017-05-22] MEDS: ENOXAPARIN 40 MG/0.4 ML SQ SCH (15:03)
[2017-05-22 17:35] VITALS: BP 145/74
[2017-05-22 20:15] VITALS: BP 135/75
[2017-05-23 02:58] VITALS: BP 133/70
[2017-05-23] MEDS: OXYcodone IR 5MG TABLET PO PRN ×3 (03:38→11:47)
[2017-05-23 07:40] VITALS: BP 127/72
[2017-05-23] MEDS: GABAPENTIN 300 MG CAPSULE PO SCH (07:44)
[2017-05-23] MEDS: METOPROLOL TARTRATE 25 MG TABLET PO SCH (07:44)
[2017-05-23] MEDS: LACTOBACILLUS CHEW TABLET PO SCH (07:44)
[2017-05-23] MEDS: LOSARTAN 25MG TABLET PO SCH (07:44)
[2017-05-23] MEDS: DOCUSATE 100 MG CAPSULE PO SCH (07:44)
[2017-05-23] MEDS: AQUAPHOR NATURAL HEALING OINT 50GM TP SCH (07:44)
[2017-05-23] MEDS ORDERED: ENOX40SY4 SQ (10:43)
[2017-05-23] MEDS ORDERED: SENN1TAB7 PO (10:43)
== END 2017-05-23 13:23 | DRG 904 ==
LOC: OUT 12:42 → 4NOR 17:10 → OUT 05-01 11:04 → 4NOR 05-01 11:04
PROVIDERS: ADMIT Orthopaedic Surgery; ATTEND Orthopaedic Surgery
PROC: 0HBJXZZ Excision of Left Upper Leg Skin, External Approach (ICD-10-PCS; 2017-04-30)
PROC: 0HRDX74 Replacement of Right Lower Arm Skin with Autologous Tissue Substitute, Partial Thickness, External Approach (ICD-10-PCS; principal; 2017-04-30 15:00)
DX: T81.89XA Other complications of procedures, not elsewhere classified, initial encounter (principal); E44.1 Mild protein-calorie malnutrition; D69.6 Thrombocytopenia, unspecified; T87.89 Other complications of amputation stump; T86.828 Other complications of skin graft (allograft) (autograft); Z93.1 Gastrostomy status; I10 Essential (primary) hypertension; F10.20 Alcohol dependence, uncomplicated; Z60.2 Problems related to living alone; F17.210 Nicotine dependence, cigarettes, uncomplicated; I25.2 Old myocardial infarction; Z89.511 Acquired absence of right leg below knee; Z89.512 Acquired absence of left leg below knee; Z68.29 Body mass index [BMI] 29.0-29.9, adult; Z79.899 Other long term (current) drug therapy; Y83.5 Amputation of limb(s) as the cause of abnormal reaction of the patient, or of later complication, without mention of misadventure at the time of the procedure; Y83.2 Surgical operation with anastomosis, bypass or graft as the cause of abnormal reaction of the patient, or of later complication, without mention of misadventure at the time of the procedure; Z86.19 Personal history of other infectious and parasitic diseases
CPT/HCPCS: 36415; 80048; 82565; 85025; 85651; 86140; J0171; J0690; J1100; J1650; J2250; J2405; J2704; J3010; J3490; J0330; J2370

== ENCOUNTER 2017-08-10 05:05 | Inpatient (IN) | payer MEDICARE ==
[~2017-08-10] VITALS: Ht 154.9 cm; Wt 72.5 kg
[~2017-08-10 05:05] MED LIST changes: +ACID1TAB PO; +ALPR0.5T PO; +ENOX40SY4 SQ; +LOSA25TA5 PO; +OXYC10TA47 PO; +SENN1TAB7 PO
[2017-08-10] MEDS ORDERED: OXYcodone/APAP 10/325MG TABLET ONE ×4 (06:12→20:21)
[2017-08-10] MEDS ORDERED: OXYcodone/APAP 10/325MG TABLET PO ONE (06:30)
[2017-08-10] MEDS ORDERED: METOPROLOL TARTRATE 25 MG TABLET PO ONE (08:30)
[2017-08-10] MEDS ORDERED: LORazepam 1MG TABLET PO ONE (08:30)
[2017-08-10] MEDS ORDERED: LORazepam 1MG TABLET ONE (08:33)
[2017-08-10] MEDS ORDERED: METOPROLOL TARTRATE 50 MG TABLET ONE (08:37)
[2017-08-10 19:25] LABS: CLOSTRIDIUM DIFFICILE ANTIGEN NEGATIVE; CLOSTRIDIUM DIFFICILE TOXIN NEGATIVE (Negative)
[2017-08-10 19:39] LABS: ALANINE AMINOTRANSFERASE 25 U/L (12-78); ALBUMIN 3.6 g/dL (3.4-5.0); ANION GAP 12 mmol/L (5-15); CALCIUM 8.8 mg/dL (8.5-10.1); CHLORIDE 103 mmol/L (98-107); CREATININE 0.71 mg/dL (0.7-1.3)
[2017-08-10 19:42] LABS: ALKALINE PHOSPHATASE 117 U/L (45-117); BILIRUBIN,TOTAL 0.7 mg/dL (0.2-1.0); TOTAL PROTEIN 7.8 g/dL (6.4-8.2)
[2017-08-10 19:55] LABS: BASOPHILS # (AUTO) 0.06 x10^3/uL (0-0.1); BASOPHILS % (AUTO) 1 % (0-1); EOSINOPHILS # (AUTO) 0.14 x10^3/uL (0-0.4); EOSINOPHILS % (AUTO) 1 % (1-7); LYMPHOCYTES # (AUTO) 1.17 x10^3/uL (1-3.4); LYMPHOCYTES % (AUTO) 12 % (22-44); MD NO; MEAN CORPUSCULAR HEMOGLOBIN 28.3 pg (27.5-34.5); MEAN CORPUSCULAR HGB CONC 33.2 g/dL (33.2-36.2); MEAN CORPUSCULAR VOLUME 85.4 fL (81-97); MEAN PLATELET VOLUME 8.8 fL (7.4-10.4); MONOCYTES # (AUTO) 0.56 x10^3/uL (0.2-0.8); MONOCYTES % (AUTO) 6 % (2-9); NEUTROPHILS # (AUTO) 7.97 x10^3/uL (1.8-6.8); NEUTROPHILS % (AUTO) 81 % (42-75); PLATELET COUNT 285 x10^3/uL (130-400); RED BLOOD COUNT 4.65 x10^6/uL (4.38-5.82); RED CELL DISTRIBUTION WIDTH 14.1 % (9.4-14.8)
[2017-08-10 20:18] LABS: CULTURE INDICATED? NO; MICROSCOPIC NOT IND
[2017-08-10] MEDS: ERGOCALCIFEROL 50,000 UNIT CAPSULE PO SCH (22:44)
[2017-08-10 22:45] VITALS: BP 157/76
[2017-08-11 02:56] VITALS: BP 157/74
[2017-08-11] MEDS ORDERED: OXYcodone/APAP 10/325MG TABLET PO ONE (05:30)
[2017-08-11 06:30] VITALS: BP 137/76
[2017-08-11] MEDS: METOPROLOL TARTRATE 25 MG TABLET PO SCH (08:53)
[2017-08-11] MEDS: LOSARTAN 25MG TABLET PO SCH (08:54)
[2017-08-11] MEDS: GABAPENTIN 300 MG CAPSULE PO SCH (08:54)
[2017-08-11 13:00] VITALS: BP 126/72
[2017-08-11] MEDS: ENOXAPARIN 40 MG/0.4 ML SQ SCH (18:11)
[2017-08-11] MEDS: ACETAMINOPHEN 325 MG TABLET PO PRN ×2 (18:49→23:00)
[2017-08-11] MEDS: GABAPENTIN 400 MG CAPSULE PO PRN (18:49)
[2017-08-11 19:06] VITALS: BP 145/77
[2017-08-12 02:15] VITALS: BP 130/74
[2017-08-12] MEDS: GABAPENTIN 400 MG CAPSULE PO PRN ×4 (03:03→21:11)
[2017-08-12 07:51] VITALS: BP 165/84
[2017-08-12] MEDS: LOSARTAN 25MG TABLET PO SCH (09:12)
[2017-08-12] MEDS: ACETAMINOPHEN 325 MG TABLET PO PRN ×3 (09:13→19:59)
[2017-08-12] MEDS: METOPROLOL TARTRATE 25 MG TABLET PO SCH (09:13)
[2017-08-12] MEDS: GABAPENTIN 300 MG CAPSULE PO SCH (09:14)
[2017-08-12 09:29] LABS: ANION GAP 10 mmol/L (5-15); CALCIUM 8.6 mg/dL (8.5-10.1); CHLORIDE 106 mmol/L (98-107); CREATININE 0.78 mg/dL (0.7-1.3)
[2017-08-12 12:29] VITALS: BP 145/86
[2017-08-12] MEDS: ENOXAPARIN 40 MG/0.4 ML SQ SCH (15:30)
[2017-08-12 19:25] VITALS: BP 142/82
[2017-08-12 23:31] VITALS: BP 126/72
[2017-08-13] MEDS: GABAPENTIN 400 MG CAPSULE PO PRN ×3 (02:59→22:53)
[2017-08-13] MEDS: ACETAMINOPHEN 325 MG TABLET PO PRN ×3 (03:00→22:53)
[2017-08-13 06:33] VITALS: BP 120/74
[2017-08-13] MEDS: GABAPENTIN 300 MG CAPSULE PO SCH (08:23)
[2017-08-13] MEDS: LOSARTAN 25MG TABLET PO SCH (08:23)
[2017-08-13] MEDS: METOPROLOL TARTRATE 25 MG TABLET PO SCH (08:23)
[2017-08-13 13:12] VITALS: BP 169/76
[2017-08-13] MEDS: ENOXAPARIN 40 MG/0.4 ML SQ SCH (17:19)
[2017-08-13 19:10] VITALS: BP 138/74
[2017-08-14 01:42] VITALS: BP 129/68
[2017-08-14] MEDS: GABAPENTIN 400 MG CAPSULE PO PRN ×3 (05:02→22:36)
[2017-08-14] MEDS: ACETAMINOPHEN 325 MG TABLET PO PRN ×3 (05:02→22:35)
[2017-08-14 06:31] VITALS: BP 147/75
[2017-08-14] MEDS: METOPROLOL TARTRATE 25 MG TABLET PO SCH (08:52)
[2017-08-14] MEDS: LOSARTAN 25MG TABLET PO SCH (08:53)
[2017-08-14] MEDS: GABAPENTIN 300 MG CAPSULE PO SCH (08:53)
[2017-08-14 13:36] VITALS: BP 130/75
[2017-08-14] MEDS: ENOXAPARIN 40 MG/0.4 ML SQ SCH (16:18)
[2017-08-14 19:58] VITALS: BP 143/85
[2017-08-15 01:06] VITALS: BP 160/80
[2017-08-15] MEDS: ACETAMINOPHEN 325 MG TABLET PO PRN ×4 (04:15→22:37)
[2017-08-15] MEDS: GABAPENTIN 400 MG CAPSULE PO PRN ×3 (04:15→22:37)
[2017-08-15 06:40] VITALS: BP 149/88
[2017-08-15 07:57] VITALS: BP 139/75
[2017-08-15] MEDS: GABAPENTIN 300 MG CAPSULE PO SCH (10:35)
[2017-08-15] MEDS: LOSARTAN 25MG TABLET PO SCH (10:35)
[2017-08-15] MEDS: METOPROLOL TARTRATE 25 MG TABLET PO SCH (10:35)
[2017-08-15 14:12] VITALS: BP 120/67
[2017-08-15] MEDS: ENOXAPARIN 40 MG/0.4 ML SQ SCH (16:22)
[2017-08-15 19:04] VITALS: BP 136/69
[2017-08-16 01:01] VITALS: BP 130/78
[2017-08-16] MEDS: GABAPENTIN 400 MG CAPSULE PO PRN ×3 (04:35→17:42)
[2017-08-16] MEDS: ACETAMINOPHEN 325 MG TABLET PO PRN ×3 (04:35→17:43)
[2017-08-16 07:54] VITALS: BP 115/63
[2017-08-16] MEDS: GABAPENTIN 300 MG CAPSULE PO SCH (07:56)
[2017-08-16] MEDS: LOSARTAN 25MG TABLET PO SCH (07:56)
[2017-08-16] MEDS: METOPROLOL TARTRATE 25 MG TABLET PO SCH (07:56)
[2017-08-16 14:36] VITALS: BP 127/74
[2017-08-16] MEDS: ENOXAPARIN 40 MG/0.4 ML SQ SCH (15:30)
[2017-08-16 18:34] VITALS: BP 161/79
[2017-08-17] MEDS: GABAPENTIN 400 MG CAPSULE PO PRN ×4 (00:02→20:31)
[2017-08-17] MEDS: ACETAMINOPHEN 325 MG TABLET PO PRN ×4 (00:02→20:30)
[2017-08-17 00:18] VITALS: BP 122/66
[2017-08-17 07:42] VITALS: BP 147/74
[2017-08-17] MEDS: LOSARTAN 25MG TABLET PO SCH (10:20)
[2017-08-17] MEDS: GABAPENTIN 300 MG CAPSULE PO SCH (10:20)
[2017-08-17] MEDS: METOPROLOL TARTRATE 25 MG TABLET PO SCH (10:20)
[2017-08-17 12:33] VITALS: BP 150/78
[2017-08-17] MEDS: ENOXAPARIN 40 MG/0.4 ML SQ SCH (14:30)
[2017-08-17 19:11] VITALS: BP 137/76
[2017-08-17] MEDS: NICOTINE 21 MG/24 HR PATCH.TD24 TD SCH (20:31)
[2017-08-17] MEDS: ERGOCALCIFEROL 50,000 UNIT CAPSULE PO SCH (20:32)
[2017-08-18 00:05] VITALS: BP 153/77
[2017-08-18] MEDS: GABAPENTIN 400 MG CAPSULE PO PRN ×4 (02:31→21:57)
[2017-08-18] MEDS: ACETAMINOPHEN 325 MG TABLET PO PRN ×4 (02:31→21:57)
[2017-08-18 05:42] LABS: CREATININE 0.67 mg/dL (0.7-1.3)
[2017-08-18] MEDS: LOSARTAN 25MG TABLET PO SCH (09:03)
[2017-08-18] MEDS: GABAPENTIN 300 MG CAPSULE PO SCH (09:03)
[2017-08-18] MEDS: METOPROLOL TARTRATE 25 MG TABLET PO SCH (09:03)
[2017-08-18] MEDS: NICOTINE 21 MG/24 HR PATCH.TD24 TD SCH (09:03)
[2017-08-18 09:07] VITALS: BP 152/77
[2017-08-18 13:26] VITALS: BP 163/89
[2017-08-18] MEDS: ENOXAPARIN 40 MG/0.4 ML SQ SCH (15:59)
[2017-08-18 19:16] VITALS: BP 159/76
[2017-08-19 01:41] VITALS: BP 128/74
[2017-08-19] MEDS: ACETAMINOPHEN 325 MG TABLET PO PRN ×2 (04:57→19:53)
[2017-08-19] MEDS: GABAPENTIN 400 MG CAPSULE PO PRN ×3 (04:57→19:53)
[2017-08-19 08:25] VITALS: BP 117/76
[2017-08-19] MEDS: GABAPENTIN 300 MG CAPSULE PO SCH (09:50)
[2017-08-19] MEDS: LOSARTAN 25MG TABLET PO SCH (09:51)
[2017-08-19] MEDS: NICOTINE 21 MG/24 HR PATCH.TD24 TD SCH (09:51)
[2017-08-19] MEDS: METOPROLOL TARTRATE 25 MG TABLET PO SCH (09:51)
[2017-08-19] MEDS: ENOXAPARIN 40 MG/0.4 ML SQ SCH (14:00)
[2017-08-19 14:18] VITALS: BP_SYST 150; BP_SYST 96; BP_DIAS 64; BP_DIAS 89
[2017-08-19 20:21] VITALS: BP 104/62
[2017-08-20 00:30] VITALS: BP 122/71
[2017-08-20] MEDS: GABAPENTIN 400 MG CAPSULE PO PRN ×3 (04:25→17:54)
[2017-08-20] MEDS: ACETAMINOPHEN 325 MG TABLET PO PRN ×3 (04:25→17:54)
[2017-08-20 06:30] VITALS: BP 121/69
[2017-08-20] MEDS: NICOTINE 21 MG/24 HR PATCH.TD24 TD SCH (09:00)
[2017-08-20] MEDS: LOSARTAN 25MG TABLET PO SCH (09:00)
[2017-08-20] MEDS: METOPROLOL TARTRATE 25 MG TABLET PO SCH (11:01)
[2017-08-20] MEDS: GABAPENTIN 300 MG CAPSULE PO SCH (11:01)
[2017-08-20 13:10] VITALS: BP 159/75
[2017-08-20] MEDS: ENOXAPARIN 40 MG/0.4 ML SQ SCH (15:56)
[2017-08-20 19:22] VITALS: BP 135/76
[2017-08-21] MEDS: GABAPENTIN 400 MG CAPSULE PO PRN (01:57)
[2017-08-21] MEDS: ACETAMINOPHEN 325 MG TABLET PO PRN ×4 (01:57→20:16)
[2017-08-21 02:20] VITALS: BP 107/59
[2017-08-21] MEDS: NICOTINE 21 MG/24 HR PATCH.TD24 TD SCH (09:00)
[2017-08-21 10:15] VITALS: BP 143/75
[2017-08-21] MEDS: LOSARTAN 25MG TABLET PO SCH (10:16)
[2017-08-21] MEDS: GABAPENTIN 300 MG CAPSULE PO SCH (10:16)
[2017-08-21] MEDS: METOPROLOL TARTRATE 25 MG TABLET PO SCH (10:16)
[2017-08-21] MEDS ORDERED: GABAPENTIN 100 MG CAPSULE PO ONE (10:30)
[2017-08-21] MEDS: GABAPENTIN 400 MG CAPSULE PO SCH ×3 (11:00→20:16)
[2017-08-21 14:00] VITALS: BP 133/68
[2017-08-21] MEDS: ENOXAPARIN 40 MG/0.4 ML SQ SCH (16:10)
[2017-08-21 19:52] VITALS: BP 122/62
[2017-08-22 03:54] VITALS: BP 117/65
[2017-08-22] MEDS: ACETAMINOPHEN 325 MG TABLET PO PRN ×4 (06:03→20:48)
[2017-08-22] MEDS: GABAPENTIN 400 MG CAPSULE PO SCH ×4 (06:04→20:48)
[2017-08-22 07:59] VITALS: BP 147/71
[2017-08-22] MEDS: NICOTINE 21 MG/24 HR PATCH.TD24 TD SCH (09:00)
[2017-08-22] MEDS: LOSARTAN 25MG TABLET PO SCH (09:06)
[2017-08-22] MEDS: METOPROLOL TARTRATE 25 MG TABLET PO SCH (09:06)
[2017-08-22 13:59] VITALS: BP 124/70
[2017-08-22] MEDS: ENOXAPARIN 40 MG/0.4 ML SQ SCH (15:53)
[2017-08-22 18:31] VITALS: BP 128/78
[2017-08-23 00:20] VITALS: BP 130/66
[2017-08-23] MEDS: ACETAMINOPHEN 325 MG TABLET PO PRN ×5 (00:37→20:48)
[2017-08-23] MEDS: GABAPENTIN 400 MG CAPSULE PO SCH ×4 (05:56→20:48)
[2017-08-23 06:47] VITALS: BP 137/75
[2017-08-23] MEDS: METOPROLOL TARTRATE 25 MG TABLET PO SCH (09:46)
[2017-08-23] MEDS: LOSARTAN 25MG TABLET PO SCH (09:46)
[2017-08-23] MEDS: NICOTINE 21 MG/24 HR PATCH.TD24 TD SCH (09:46)
[2017-08-23 13:30] VITALS: BP 161/78
[2017-08-23] MEDS: ENOXAPARIN 40 MG/0.4 ML SQ SCH (16:53)
[2017-08-23 18:37] VITALS: BP 139/70
[2017-08-24 00:28] VITALS: BP 121/69
[2017-08-24] MEDS: ACETAMINOPHEN 325 MG TABLET PO PRN ×5 (00:35→20:15)
[2017-08-24] MEDS: GABAPENTIN 400 MG CAPSULE PO SCH ×4 (05:39→20:16)
[2017-08-24] MEDS: METOPROLOL TARTRATE 25 MG TABLET PO SCH (09:35)
[2017-08-24] MEDS: LOSARTAN 25MG TABLET PO SCH (09:36)
[2017-08-24] MEDS: NICOTINE 21 MG/24 HR PATCH.TD24 TD SCH (09:36)
[2017-08-24 09:38] VITALS: BP 133/69
[2017-08-24 13:44] VITALS: BP 160/81
[2017-08-24] MEDS: ENOXAPARIN 40 MG/0.4 ML SQ SCH (16:38)
[2017-08-24 19:40] VITALS: BP 139/73
[2017-08-24] MEDS: ERGOCALCIFEROL 50,000 UNIT CAPSULE PO SCH (22:06)
[2017-08-25] MEDS: ACETAMINOPHEN 325 MG TABLET PO PRN ×5 (00:22→19:57)
[2017-08-25 01:53] VITALS: BP 129/70
[2017-08-25] MEDS: GABAPENTIN 400 MG CAPSULE PO SCH ×4 (06:11→19:56)
[2017-08-25 06:29] VITALS: BP 122/72
[2017-08-25] MEDS: LOSARTAN 25MG TABLET PO SCH (10:19)
[2017-08-25] MEDS: METOPROLOL TARTRATE 25 MG TABLET PO SCH (10:20)
[2017-08-25] MEDS: NICOTINE 21 MG/24 HR PATCH.TD24 TD SCH (10:20)
[2017-08-25 12:34] VITALS: BP 136/73
[2017-08-25] MEDS: ENOXAPARIN 40 MG/0.4 ML SQ SCH (17:28)
[2017-08-25 18:45] VITALS: BP 116/69
[2017-08-26] MEDS: ACETAMINOPHEN 325 MG TABLET PO PRN ×6 (00:39→22:25)
[2017-08-26 01:42] VITALS: BP 120/72
[2017-08-26 05:29] LABS: CREATININE 0.75 mg/dL (0.7-1.3)
[2017-08-26] MEDS: GABAPENTIN 400 MG CAPSULE PO SCH ×4 (05:49→17:59)
[2017-08-26 07:45] VITALS: BP 111/68
[2017-08-26] MEDS: LOSARTAN 25MG TABLET PO SCH (07:50)
[2017-08-26] MEDS: METOPROLOL TARTRATE 25 MG TABLET PO SCH (07:50)
[2017-08-26] MEDS: NICOTINE 21 MG/24 HR PATCH.TD24 TD SCH (07:51)
[2017-08-26 13:00] VITALS: BP 121/73
[2017-08-26] MEDS: ENOXAPARIN 40 MG/0.4 ML SQ SCH (16:15)
[2017-08-26 19:00] VITALS: BP 137/51
[2017-08-27 01:58] VITALS: BP 122/70
[2017-08-27] MEDS: ACETAMINOPHEN 325 MG TABLET PO PRN ×3 (02:28→09:57)
[2017-08-27] MEDS: GABAPENTIN 400 MG CAPSULE PO SCH ×2 (06:01→09:57)
[2017-08-27] MEDS: METOPROLOL TARTRATE 25 MG TABLET PO SCH (07:43)
[2017-08-27] MEDS: NICOTINE 21 MG/24 HR PATCH.TD24 TD SCH (07:43)
[2017-08-27] MEDS: LOSARTAN 25MG TABLET PO SCH (07:43)
[2017-08-27 08:50] VITALS: BP 122/70
[2017-08-27] MEDS ORDERED: LOSA25TA2 PO (10:26)
[2017-08-27] MEDS ORDERED: ACET325T14 PO (10:26)
[2017-08-27] MEDS ORDERED: METO25TA35 PO (10:26)
[2017-08-27] MEDS ORDERED: GABA-827 PO (10:26)
== END 2017-08-27 11:25 | disposition home or self-care (01) | DRG 556 ==
LOC: ED 06:16 → EDIP 10:16 → 3NE 21:14
PROVIDERS: ADMIT Hospitalist; ATTEND Hospitalist
DX: M62.81 Muscle weakness (generalized) (principal); G62.9 Polyneuropathy, unspecified; R62.7 Adult failure to thrive; F10.129 Alcohol abuse with intoxication, unspecified; E55.9 Vitamin D deficiency, unspecified; I10 Essential (primary) hypertension; Z89.511 Acquired absence of right leg below knee; Z89.512 Acquired absence of left leg below knee; Z79.899 Other long term (current) drug therapy; Z87.891 Personal history of nicotine dependence
CPT/HCPCS: 36415; 71045; 80048; 80053; 81003; 82565; 84520; 85025; 86480; 87324; 99285; J1650

== ENCOUNTER 2019-07-23 15:13 | Inpatient (IN) | payer MEDICARE, MEDICAID ==
[~2019-07-23] VITALS: Ht 165.1 cm; Wt 79.8 kg
[~2019-07-23 15:13] MED LIST changes: +ACET325T14 PO; +GABA-827 PO; +LOSA25TA25 PO; -LOSA25TA5 PO; +SENN-177 PO; -SENN1TAB7 PO
[2019-07-23] MEDS ORDERED: METO25TA91 PO (15:48)
[2019-07-23] MEDS ORDERED: HYDROmorphone 1 MG/ML, 1ML INJ ONE (15:48)
[2019-07-23] MEDS ORDERED: ONDANSETRON 2MG/ML, 2ML ONE (15:48)
--- NOTE | 2019-07-23 15:52 | NUR ---
PT BIB BY EMS FROM [facility]. 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 PT HAS NEW PROSTESIS FOR RIGHT BKA AND HAS DEVELOPED PAIN, ERRYTHEMA, AND DRAINAGE AT SITE. ERRYTHEMA AND PAIN STARTED APPROX 6 DAYS AGO. PT WITH TEMP 100.5, PAIN 8/. DR. CALDERÓN AT BEDSIDE, POC DISCUSSED WITH PT AND ORDERS REC'D. US GUIDED PIV EST BY MART BURGOS AND PT MED NOTED FOR PAIN. PT TO CT WITH TECH TRANSPORT.
[2019-07-23 15:54] LABS: BASOPHILS # (AUTO) 0.02 x10^3/uL (0-0.1); BASOPHILS % (AUTO) 0 % (0-1); EOSINOPHILS # (AUTO) 0.26 x10^3/uL (0-0.4); EOSINOPHILS % (AUTO) 2 % (1-7); LYMPHOCYTES # (AUTO) 1.26 x10^3/uL (1-3.4); LYMPHOCYTES % (AUTO) 11 % (22-44); MD NO; MEAN CORPUSCULAR HEMOGLOBIN 30.5 pg (27.5-34.5); MEAN CORPUSCULAR HGB CONC 32.7 g/dL (33.2-36.2); MEAN CORPUSCULAR VOLUME 93.1 fL (81-97); MEAN PLATELET VOLUME 8.9 fL (7.4-10.4); MONOCYTES # (AUTO) 0.78 x10^3/uL (0.2-0.8); MONOCYTES % (AUTO) 7 % (2-9); NEUTROPHILS # (AUTO) 8.96 x10^3/uL (1.8-6.8); NEUTROPHILS % (AUTO) 80 % (42-75); PLATELET COUNT 230 x10^3/uL (130-400); RED BLOOD COUNT 6.01 x10^6/uL (4.38-5.82); RED CELL DISTRIBUTION WIDTH 13.5 % (9.4-14.8)
[2019-07-23] MEDS ORDERED: VANCOMYCIN PER PHARMACY MC ONE (16:00)
[2019-07-23] MEDS ORDERED: HYDROmorphone 1 MG/ML, 1ML INJ IVPush PRN (16:00)
[2019-07-23] MEDS ORDERED: SODIUM CHLORIDE FLUSH 10ML SYR IVF ONE (16:00)
[2019-07-23] MEDS ORDERED: VANCOMYCIN 1,500 MG in SODIUM CHLORIDE 0.9% 250 ML IV ONE (16:00)
[2019-07-23] MEDS ORDERED: ONDANSETRON 2MG/ML, 2ML IVPush ONE (16:00)
[2019-07-23 16:06] LABS: ALANINE AMINOTRANSFERASE 23 U/L (12-78); ALBUMIN 3.8 g/dL (3.4-5.0); ANION GAP 8 mmol/L (5-15); CALCIUM 9.4 mg/dL (8.5-10.1); CHLORIDE 103 mmol/L (98-107)
[2019-07-23 16:08] LABS: ALKALINE PHOSPHATASE 133 U/L (45-117); BILIRUBIN,TOTAL 0.6 mg/dL (0.2-1.0); TOTAL PROTEIN 8.8 g/dL (6.4-8.2)
--- NOTE | 2019-07-23 16:22 | NUR ---
henryo per chlesi blood cultures drawn prior. resting in bed no needs at this time will ask md for water.
--- NOTE | 2019-07-23 17:19 | NUR ---
REPORT TO LAURIE RN.
[2019-07-23 17:45] VITALS: BP 124/77
[2019-07-23 18:43] VITALS: BP 139/64
[2019-07-23] MEDS ORDERED: ONDANSETRON ODT 4 MG PO PRN (19:00)
[2019-07-23] MEDS ORDERED: BISACODYL 10 MG SUPP PR PRN (19:00)
[2019-07-23] MEDS ORDERED: VANCOMYCIN PER PHARMACY MC PRN (19:00)
[2019-07-23] MEDS ORDERED: POLYETHYLENE GLYCOL 17 GM PACKET PO PRN (19:00)
[2019-07-23] MEDS ORDERED: ACETAMINOPHEN 325 MG TABLET PO PRN (19:00)
[2019-07-23] MEDS ORDERED: PHARMACOKINETIC CONSULTATION MC ONE (19:30)
[2019-07-23] MEDS ORDERED: PHARMACOKINETIC MONITORING MC PRN (19:30)
[2019-07-23] MEDS: SODIUM CHLORIDE 0.9% 1,000 ML IV SCH (19:45)
[2019-07-23] MEDS: PIPERACILLIN/TAZO/PMX 3.375GM 50 ML IV SCH (19:52)
[2019-07-23] MEDS: GABAPENTIN 400 MG CAPSULE PO SCH (20:04)
[2019-07-23] MEDS: morphine SULFATE 10 MG/ML, 1ML IVPush PRN ×2 (20:05→23:01)
[2019-07-23] MEDS ORDERED: METOPROLOL SUCCINATE 25 MG TAB.ER.24H PO SCH (21:00)
[2019-07-23] MEDS: METOPROLOL SUCCINATE 25 MG TAB.ER.24H PO SCH (22:01)
[2019-07-24 01:18] VITALS: BP 106/64
[2019-07-24] MEDS: PIPERACILLIN/TAZO/PMX 3.375GM 50 ML IV SCH ×4 (01:42→19:36)
[2019-07-24] MEDS: morphine SULFATE 10 MG/ML, 1ML IVPush PRN ×4 (03:17→19:27)
[2019-07-24] MEDS: SODIUM CHLORIDE 0.9% 1,000 ML IV SCH ×2 (04:48→16:00)
[2019-07-24 05:39] LABS: BASOPHILS # (AUTO) 0.06 x10^3/uL (0-0.1); BASOPHILS % (AUTO) 1 % (0-1); EOSINOPHILS # (AUTO) 0.23 x10^3/uL (0-0.4); EOSINOPHILS % (AUTO) 2 % (1-7); LYMPHOCYTES # (AUTO) 1.04 x10^3/uL (1-3.4); LYMPHOCYTES % (AUTO) 11 % (22-44); MD NO; MEAN CORPUSCULAR HEMOGLOBIN 30.6 pg (27.5-34.5); MEAN CORPUSCULAR VOLUME 92.8 fL (81-97); MEAN PLATELET VOLUME 8.9 fL (7.4-10.4); MONOCYTES # (AUTO) 0.57 x10^3/uL (0.2-0.8); MONOCYTES % (AUTO) 6 % (2-9); NEUTROPHILS # (AUTO) 7.78 x10^3/uL (1.8-6.8); NEUTROPHILS % (AUTO) 80 % (42-75); PLATELET COUNT 222 x10^3/uL (130-400); RED BLOOD COUNT 5.41 x10^6/uL (4.38-5.82); RED CELL DISTRIBUTION WIDTH 13.6 % (9.4-14.8)
[2019-07-24 05:55] LABS: CHLORIDE 106 mmol/L (98-107)
[2019-07-24 06:05] LABS: ALANINE AMINOTRANSFERASE 62 U/L (12-78); ALBUMIN 2.8 g/dL (3.4-5.0); ALKALINE PHOSPHATASE 122 U/L (45-117); ANION GAP 9 mmol/L (5-15); BILIRUBIN,TOTAL 1.2 mg/dL (0.2-1.0); CALCIUM 7.7 mg/dL (8.5-10.1); CREATININE 0.96 mg/dL (0.7-1.3); TOTAL PROTEIN 6.6 g/dL (6.4-8.2)
[2019-07-24 07:28] VITALS: BP 116/74
[2019-07-24] MEDS: SENNA/DOCUSATE TABLET PO SCH (08:24)
[2019-07-24] MEDS: GABAPENTIN 400 MG CAPSULE PO SCH ×3 (08:24→21:44)
[2019-07-24 13:22] VITALS: BP 101/76
[2019-07-24] MEDS ORDERED: FENTANYL PF 250 MCG/5ML ONE (15:50)
[2019-07-24] MEDS ORDERED: MIDAZOLAM 1 MG/ML, 2ML ONE (15:50)
[2019-07-24] MEDS ORDERED: ONDANSETRON 2MG/ML, 2ML IV PRN (17:00)
[2019-07-24] MEDS ORDERED: MEPERIDINE/PF 25MG/ML,1ML IVPush PRN (17:00)
[2019-07-24] MEDS ORDERED: FENTANYL PF 100 MCG/2ML IV PRN (17:00)
[2019-07-24] MEDS ORDERED: hydrALAzine 20 MG/ML, 1ML IV PRN (17:00)
[2019-07-24] MEDS ORDERED: OXYcodone 5 MG/5 ML ORAL.SOL UDC PO PRN (17:00)
[2019-07-24] MEDS ORDERED: ALBUTEROL/IPRATROPIUM 2.5MG/0.5MG, 3 ML NPPB PRN (17:00)
[2019-07-24] MEDS ORDERED: HYDROmorphone 2 MG/ML, 1ML IVPush PRN (17:00)
[2019-07-24] MEDS ORDERED: OXYcodone 5 MG/5 ML ORAL.SOL UDC ONE (17:07)
[2019-07-24] MEDS ORDERED: FENTANYL PF 100 MCG/2ML ONE (17:07)
[2019-07-24 17:45] VITALS: BP 115/69
[2019-07-24] MEDS: VANCOMYCIN 1,300 MG in SODIUM CHLORIDE 0.9% 250 ML IV SCH (17:51)
[2019-07-24 19:31] VITALS: BP 104/52
[2019-07-24] MEDS: OXYcodone/APAP 5/325MG TABLET PO PRN (21:44)
[2019-07-24] MEDS: METOPROLOL SUCCINATE 25 MG TAB.ER.24H PO SCH (21:45)
[2019-07-25] VITALS: BP 97/60
[2019-07-25] MEDS: morphine SULFATE 10 MG/ML, 1ML IVPush PRN (00:11)
[2019-07-25] MEDS: SODIUM CHLORIDE 0.9% 1,000 ML IV SCH ×2 (00:11→08:46)
[2019-07-25] MEDS: PIPERACILLIN/TAZO/PMX 3.375GM 50 ML IV SCH ×4 (01:50→19:49)
[2019-07-25 04:09] VITALS: BP 89/55
[2019-07-25] MEDS: OXYcodone/APAP 5/325MG TABLET PO PRN ×4 (05:29→23:38)
[2019-07-25 07:11] VITALS: BP 106/65
[2019-07-25] MEDS: LOSARTAN 25MG TABLET PO SCH (08:30)
[2019-07-25] MEDS: METOPROLOL SUCCINATE 25 MG TAB.ER.24H PO SCH ×2 (08:46→19:49)
[2019-07-25] MEDS: GABAPENTIN 400 MG CAPSULE PO SCH ×3 (08:46→19:49)
[2019-07-25] MEDS: SENNA/DOCUSATE TABLET PO SCH (08:46)
[2019-07-25 09:33] LABS: BASOPHILS # (AUTO) 0.04 x10^3/uL (0-0.1); BASOPHILS % (AUTO) 0 % (0-1); EOSINOPHILS # (AUTO) 0.26 x10^3/uL (0-0.4); EOSINOPHILS % (AUTO) 3 % (1-7); LYMPHOCYTES # (AUTO) 0.57 x10^3/uL (1-3.4); LYMPHOCYTES % (AUTO) 7 % (22-44); MD NO; MEAN CORPUSCULAR HEMOGLOBIN 30.3 pg (27.5-34.5); MEAN CORPUSCULAR HGB CONC 32.9 g/dL (33.2-36.2); MEAN CORPUSCULAR VOLUME 92.1 fL (81-97); MEAN PLATELET VOLUME 8.8 fL (7.4-10.4); MONOCYTES # (AUTO) 0.42 x10^3/uL (0.2-0.8); MONOCYTES % (AUTO) 5 % (2-9); NEUTROPHILS # (AUTO) 7.49 x10^3/uL (1.8-6.8); NEUTROPHILS % (AUTO) 85 % (42-75); PLATELET COUNT 186 x10^3/uL (130-400); RED BLOOD COUNT 4.96 x10^6/uL (4.38-5.82); RED CELL DISTRIBUTION WIDTH 13.4 % (9.4-14.8)
[2019-07-25 09:38] LABS: ANION GAP 6 mmol/L (5-15); CALCIUM 7.4 mg/dL (8.5-10.1); CHLORIDE 107 mmol/L (98-107)
[2019-07-25 12:50] VITALS: BP 104/62
[2019-07-25] MEDS ORDERED: PHENYLEPHRINE 10 MG/ML ONE (16:03)
[2019-07-25] MEDS: VANCOMYCIN 1,300 MG in SODIUM CHLORIDE 0.9% 250 ML IV SCH (18:00)
[2019-07-25 19:03] VITALS: BP 111/67
[2019-07-26] MEDS: PIPERACILLIN/TAZO/PMX 3.375GM 50 ML IV SCH ×3 (01:30→13:32)
[2019-07-26 02:00] VITALS: BP 115/71
[2019-07-26] MEDS: morphine SULFATE 10 MG/ML, 1ML IVPush PRN (02:34)
[2019-07-26] MEDS: OXYcodone/APAP 5/325MG TABLET PO PRN ×3 (06:35→19:21)
[2019-07-26 06:59] VITALS: BP 105/68
[2019-07-26 07:37] LABS: BASOPHILS # (AUTO) 0.02 x10^3/uL (0-0.1); BASOPHILS % (AUTO) 0 % (0-1); EOSINOPHILS # (AUTO) 0.29 x10^3/uL (0-0.4); EOSINOPHILS % (AUTO) 4 % (1-7); LYMPHOCYTES % (AUTO) 5 % (22-44); MD NO; MEAN CORPUSCULAR HEMOGLOBIN 30.2 pg (27.5-34.5); MEAN CORPUSCULAR HGB CONC 32.8 g/dL (33.2-36.2); MEAN CORPUSCULAR VOLUME 91.9 fL (81-97); MEAN PLATELET VOLUME 9.2 fL (7.4-10.4); MONOCYTES # (AUTO) 0.41 x10^3/uL (0.2-0.8); MONOCYTES % (AUTO) 5 % (2-9); NEUTROPHILS # (AUTO) 7.02 x10^3/uL (1.8-6.8); NEUTROPHILS % (AUTO) 86 % (42-75); PLATELET COUNT 182 x10^3/uL (130-400); RED BLOOD COUNT 4.71 x10^6/uL (4.38-5.82); RED CELL DISTRIBUTION WIDTH 13.4 % (9.4-14.8)
[2019-07-26] MEDS: GABAPENTIN 400 MG CAPSULE PO SCH ×3 (08:02→19:21)
[2019-07-26] MEDS: METOPROLOL SUCCINATE 25 MG TAB.ER.24H PO SCH ×2 (08:02→19:20)
[2019-07-26] MEDS: SENNA/DOCUSATE TABLET PO SCH (08:02)
[2019-07-26] MEDS: LOSARTAN 25MG TABLET PO SCH (08:02)
[2019-07-26 13:15] VITALS: BP 172/84
[2019-07-26] MEDS ORDERED: VANCOMYCIN 1,400 MG in SODIUM CHLORIDE 0.9% 250 ML IV SCH (14:00)
[2019-07-26] MEDS: VANCOMYCIN 1,300 MG in SODIUM CHLORIDE 0.9% 250 ML IV SCH (18:46)
[2019-07-26 19:22] VITALS: BP 138/77
[2019-07-27] MEDS: OXYcodone/APAP 5/325MG TABLET PO PRN ×4 (01:28→22:01)
[2019-07-27 02:00] VITALS: BP 122/68
[2019-07-27 05:35] LABS: BASOPHILS # (AUTO) 0.03 x10^3/uL (0-0.1); BASOPHILS % (AUTO) 0 % (0-1); EOSINOPHILS # (AUTO) 0.31 x10^3/uL (0-0.4); EOSINOPHILS % (AUTO) 5 % (1-7); LYMPHOCYTES # (AUTO) 0.62 x10^3/uL (1-3.4); LYMPHOCYTES % (AUTO) 9 % (22-44); MD NO; MEAN CORPUSCULAR HEMOGLOBIN 30.4 pg (27.5-34.5); MEAN CORPUSCULAR HGB CONC 32.6 g/dL (33.2-36.2); MEAN PLATELET VOLUME 9.6 fL (7.4-10.4); MONOCYTES # (AUTO) 0.42 x10^3/uL (0.2-0.8); MONOCYTES % (AUTO) 6 % (2-9); NEUTROPHILS # (AUTO) 5.44 x10^3/uL (1.8-6.8); NEUTROPHILS % (AUTO) 80 % (42-75); PLATELET COUNT 189 x10^3/uL (130-400); RED BLOOD COUNT 4.77 x10^6/uL (4.38-5.82); RED CELL DISTRIBUTION WIDTH 13.3 % (9.4-14.8)
[2019-07-27 08:01] VITALS: BP 157/78
[2019-07-27] MEDS: GABAPENTIN 400 MG CAPSULE PO SCH ×3 (08:03→20:15)
[2019-07-27] MEDS: SENNA/DOCUSATE TABLET PO SCH (08:03)
[2019-07-27] MEDS: METOPROLOL SUCCINATE 25 MG TAB.ER.24H PO SCH ×2 (08:03→20:15)
[2019-07-27] MEDS: LOSARTAN 25MG TABLET PO SCH (08:04)
[2019-07-27] MEDS ORDERED: VANCOMYCIN 1,400 MG in SODIUM CHLORIDE 0.9% 250 ML IV SCH (14:00)
[2019-07-27 14:16] VITALS: BP 165/85
[2019-07-27] MEDS ORDERED: ENOXAPARIN 40 MG/0.4 ML SQ SCH (15:00)
[2019-07-27 19:52] VITALS: BP 124/70
[2019-07-27] MEDS: morphine SULFATE 10 MG/ML, 1ML IVPush PRN (20:15)
[2019-07-28 03:13] VITALS: BP 164/80
[2019-07-28] MEDS: OXYcodone/APAP 5/325MG TABLET PO PRN ×2 (04:19→10:26)
[2019-07-28 06:51] VITALS: BP 150/80
[2019-07-28] MEDS: GABAPENTIN 400 MG CAPSULE PO SCH (07:55)
[2019-07-28] MEDS: SENNA/DOCUSATE TABLET PO SCH (07:55)
[2019-07-28] MEDS: METOPROLOL SUCCINATE 25 MG TAB.ER.24H PO SCH (07:55)
[2019-07-28] MEDS: LOSARTAN 25MG TABLET PO SCH (07:58)
[2019-07-28] MEDS ORDERED: CLIN300C8 PO (08:38)
[2019-07-28] MEDS ORDERED: OXYcodone/APAP 5/325MG PO (08:38)
[2019-07-28 11:45] VITALS: BP 152/64
== END 2019-07-28 11:50 | disposition home or self-care (01) | DRG 565 ==
LOC: ED 16:12 → EDIP 16:57 → 4NE 17:38
PROVIDERS: ADMIT Family Medicine; ATTEND Hospitalist
PROC: 0J9L00Z Drainage of Right Upper Leg Subcutaneous Tissue and Fascia with Drainage Device, Open Approach (ICD-10-PCS; principal; 2019-07-24 15:15)
DX: T87.43 Infection of amputation stump, right lower extremity (principal); L03.115 Cellulitis of right lower limb; E87.2 Acidosis; L02.415 Cutaneous abscess of right lower limb; I10 Essential (primary) hypertension; D75.1 Secondary polycythemia; B95.62 Methicillin resistant Staphylococcus aureus infection as the cause of diseases classified elsewhere; E55.9 Vitamin D deficiency, unspecified; F17.210 Nicotine dependence, cigarettes, uncomplicated; Y83.5 Amputation of limb(s) as the cause of abnormal reaction of the patient, or of later complication, without mention of misadventure at the time of the procedure; Y92.89 Other specified places as the place of occurrence of the external cause
CPT/HCPCS: 36415; 80048; 80053; 80202; 83605; 85025; 87040; 87070; 87075; 87077; 87186; 87205; 93005; 96374; 96375; G0378; J1170; J1650; J2250; J2405; J2543; J3010; J3370; J2270; J2370; J7030; J7050

== ENCOUNTER → 2019-08-28 | Outpatient (CLI) | payer MEDICARE, MEDICAID ==
[~2019-08-28] MED LIST changes: +CLIN300C8 PO; +METO25TA91 PO; +OXYcodone/APAP 5/325MG PO
== END | disposition home or self-care (01) ==
LOC: RAD 12:17
PROVIDERS: ATTEND Orthopaedic Surgery
DX: M87.861 Other osteonecrosis, right tibia (principal); I50.9 Heart failure, unspecified; Z89.9 Acquired absence of limb, unspecified